=== PATIENT | female | born 1930 | race Caucasian/White ===

== ENCOUNTER 2018-08-18 18:05 | Emergency (ER) | payer MEDICARE ==
[~2018-08-18] VITALS: Ht 160 cm; Wt 81.6 kg
--- NOTE | 2018-08-18 18:22 | ED Fall/Injury ---
General Chief Complaint: Upper Extremity Stated Complaint: FALL - RT SHOULDER PAIN Source: patient, family, RN notes reviewed Exam Limitations: no limitations History of Present Illness Date Seen by Provider: Aug 18, 2018 Time Seen by Provider: 18:22 Initial Comments Patient brought in by family c/ c/o right shoulder and forearm pain p/ slipping in the shower and falling forward. Did manage to catch herself injuring her RUE in the process. Denies any other injuries. Occurred: just prior to arrival Severity: severe (9/10) Injuries/Pain Location: upper extremity (right shoulder and forearm) Context: slipped (in shower) Loss of Consciousness: no loss of consciousness Modifying Factors: Worse With Movement; Improves With Rest Associated Symptoms (Fall): Denies Symptoms (x/ as noted. ) Allergies and Home Medications Allergies Coded Allergies: clarithromycin (Verified Allergy, Unknown, 08/18/18) Uncoded Allergies: PENICILLIN (Allergy, Unknown, 08/18/18) Patient Home Medication List Home Medication List Reviewed: Yes Review of Systems Review of Systems Constitutional: see HPI Musculoskeletal: see HPI, other (right forearm and shoulder pain) All Other Systems Reviewed Negative Unless Noted: Yes (Negative excepted noted.) Physical Exam Vital Signs Vital Signs - First Documented 08/18/18 18:11 Temp 96.3 Pulse 76 Resp 22 B/P (MAP) 131/70 (90) Pulse Ox 92 O2 Delivery Room Air Capillary Refill : Height, Weight, BMI Height: '" Weight: lbs. oz. kg; BMI Method: General Appearance: WD/WN, mild distress Cardiovascular: regular rate, rhythm Respiratory: no respiratory distress Rectal: deferred Extremities: other (right forearm is tender to palpation, but s/ obvious deformity or other pathos; right shoulder is tender and obviously painful c/ attempted movement. No outward obvious deformity, or pathos. ) Neurologic/Psychiatric: no motor/sensory deficits, alert, oriented x 3 Skin: warm/dry Rebecca Coma Score Best Eye Response: (4) Open Spontaneously Best Verbal Response: (5) Oriented Best Motor Response: (6) Obeys Commands [place] Total: 15 Progress/Results/Core Measures Results/Orders My Orders Orders - ELVIN LOUIE DO Shoulder 3 View Right (08/18/18 18:22) Forearm 2 View Right (08/18/18 18:22) [facility] Supplies Order (08/18/18 19:17) Knee Immobilizer (08/18/18 19:17) Vital Signs/I&O 08/18/18 08/18/18 18:11 19:30 Temp 96.3 96.3 Pulse 76 76 Resp 22 22 B/P (MAP) 131/70 (90) 131/70 (90) Pulse Ox 92 92 O2 Delivery Room Air Room Air Diagnostic Imaging Diagonstic Imaging: Xray Plain Films/CT/US/NM/MRI: forearm (right, & right shoulder-see reports.) Departure Impression Primary Impression: Fall Additional Impressions: Contusion of right forearm, initial encounter Right shoulder injury Disposition: HOME, SELF-CARE Condition: Stable Departure-Patient Inst. Decision time for Depature: 19:21 Referrals: LEONARDO CORTES MD (PCP/Family) Primary Care Physician Patient Instructions: How to Use a Shoulder Sling, Rotator Cuff Injury (DC), Contusion (DC) Add. Discharge Instructions: All discharge instructions reviewed with patient and/or family. Voiced understanding. MAY NEED A MRI OF YOUR SHOULDER TO FURTHER EVALUATE FOR A POSSIBLE ROTATOR CUFF INJURY, ESPECIALLY IF IT DOESN'T IMPROVE OVER THE NEXT WEEK, OR SO. ELVIN LOUIE DO Aug 18, 2018 18:22
--- NOTE | 2018-08-18 19:05 | Diagnostic Imaging Report ---
INDICATION: Fall, pain COMPARISON: None available TECHNIQUE: 3 radiographs of the right forearm dated 08/13/2018. FINDINGS: No acute fracture or dislocation. No destructive osseous process. Degenerative changes are identified within the hand, particularly the first CMC joint. Tiny radiopaque densities are identified posterior and medial to the distal ulna. IMPRESSION: No acute osseous abnormality. Tiny radiopaque densities within the soft tissues dorsal and medial to the distal ulna. These could simply relate to vascular calcifications though tiny radiopaque foreign body is not totally excluded. Recommend direct visualization. Dictated by: Dictated on workstation # [id number]
--- NOTE | 2018-08-18 19:10 | Diagnostic Imaging Report ---
EXAMINATION: Right shoulder at 6:11 PM INDICATION: Fell, shoulder pain Three views were obtained. There are no prior studies available for comparison. There is no fracture, dislocation or acute bony abnormality evident. There is moderate degenerative disease of the glenohumeral joint and the acromioclavicular joint and there appears to be calcific tendinitis in the soft tissues adjacent to the greater tuberosity. The humeral head is also more superiorly positioned with respect to the glenoid than usually seen and I suspect that there has been an injury to the rotator cuff. The soft tissues are otherwise unremarkable. IMPRESSION: 1. There is no evidence for an acute bony abnormality. 2. The position of the humeral head does suggest a rotator cuff injury. If further imaging is desired, MRI would be recommended. Dictated by: Dictated on workstation # [id number]
[2018-08-18 19:30] VITALS: BP 131/70
== END 2018-08-18 19:31 | disposition home or self-care (01) ==
LOC: ER FS 18:07
DX: S40.021A Contusion of right upper arm, initial encounter (principal); S49.91XA Unspecified injury of right shoulder and upper arm, initial encounter; R40.2142 Coma scale, eyes open, spontaneous, at arrival to emergency department; R40.2252 Coma scale, best verbal response, oriented, at arrival to emergency department; R40.2362 Coma scale, best motor response, obeys commands, at arrival to emergency department; Z88.1 Allergy status to other antibiotic agents; Z88.0 Allergy status to penicillin; W01.0XXA Fall on same level from slipping, tripping and stumbling without subsequent striking against object, initial encounter
CPT/HCPCS: 73030; 73090

== ENCOUNTER 2020-05-21 10:06 | Emergency (ER) | payer MEDICARE ==
[~2020-05-21] VITALS: Ht 152.4 cm; Wt 76.0 kg
--- NOTE | 2020-05-21 10:13 | ED GI ---
General Stated Complaint: RIGHT UPPER QUADRANT PAIN History of Present Illness Date Seen by Provider: May 21, 2020 Time Seen by Provider: 10:13 Initial Comments 89-year-old [facility] reports that she is having right upper quadrant pain and that is what she complains of. They also report that she is a little bit more lethargic and confused than normal. She does have underlying dementia. No reports of fever or chills. Patient had a right upper quadrant ultrasound done yesterday as an outpatient basis by her primary care provider but unsure the results. No other HPI available. Allergies and Home Medications Allergies Coded Allergies: clarithromycin (Verified Allergy, Unknown, 08/18/18) Uncoded Allergies: PENICILLIN (Allergy, Unknown, 08/18/18) Patient Home Medication List Home Medication List Reviewed: Yes Review of Systems Review of Systems Constitutional: see HPI Respiratory: Denies Cough, Denies Shortness of Air Cardiovascular: Denies Chest Pain Gastrointestinal: Abdominal Pain; Denies Constipated, Denies Diarrhea Genitourinary: No Symptoms Reported Musculoskeletal: no symptoms reported Skin: no symptoms reported Psychiatric/Neurological: No Symptoms Reported Endocrine: No Symptoms Reported Hematologic/Lymphatic: No Symptoms Reported Past [id number] Hx Past Med/Social Hx: Reviewed Nursing Past Med/Soc Hx Physical Exam Vital Signs Vital Signs - First Documented 05/21/20 05/21/20 10:07 12:30 Temp 37.7 Pulse 112 Resp 15 B/P (MAP) 134/58 (83) Pulse Ox 88 O2 Delivery Room Air O2 Flow Rate 2.00 Capillary Refill : Height/Weight/BMI Height: '" Weight: lbs. oz. kg; BMI Method: General Appearance: no apparent distress, obese HEENT: PERRL/EOMI Neck: full range of motion, supple Respiratory: lungs clear, normal breath sounds Cardiovascular: normal peripheral pulses, tachycardia Gastrointestinal: soft, tenderness (Right sided upper greater than lower) Extremities: normal range of motion, non-tender Neurologic/Psychiatric: other (Patient mildly lethargic/fatigued acting. Patient acknowledges right upper quadrant pain but otherwise limited conversation. There is no focal deficit noted) Skin: normal color, warm/dry Focused Exam Lactate Level 05/21/20 10:25: Lactic Acid Level 2.30*H 05/21/20 12:23: Lactic Acid Level 1.43 Lactic Acid Level Laboratory Tests Test 05/21/20 10:25 05/21/20 12:23 Lactic Acid Level 2.30 MMOL/L (0.50-2.00) *H 1.43 MMOL/L (0.50-2.00) Progress/Results/Core Measures Results/Orders Lab Results Laboratory Tests Test 05/21/20 10:25 05/21/20 12:20 05/21/20 12:23 Range/Units White Blood Count 16.3 H 4.3-11.0 10^3/uL Red Blood Count 2.90 L 4.35-5.85 10^6/uL Hemoglobin 8.0 L 11.5-16.0 G/DL Hematocrit 26 L 35-52 % Mean Corpuscular Volume 90 80-99 FL Mean Corpuscular Hemoglobin 28 25-34 PG Mean Corpuscular Hemoglobin Concent 31 L 32-36 G/DL Red Cell Distribution Width 14.9 H 10.0-14.5 % Platelet Count 234 130-400 10^3/uL Mean Platelet Volume 9.6 7.4-10.4 FL Immature Granulocyte % (Auto) 1 % Neutrophils (%) (Auto) 85 H 42-75 % Lymphocytes (%) (Auto) 6 L 12-44 % Monocytes (%) (Auto) 9 0-12 % Eosinophils (%) (Auto) 0 0-10 % Basophils (%) (Auto) 0 0-10 % Neutrophils # (Auto) 13.8 H 1.8-7.8 X 10^3 Lymphocytes # (Auto) 0.9 L 1.0-4.0 X 10^3 Monocytes # (Auto) 1.4 H 0.0-1.0 X 10^3 Eosinophils # (Auto) 0.0 0.0-0.3 10^3/uL Basophils # (Auto) 0.0 0.0-0.1 10^3/uL Immature Granulocyte # (Auto) 0.1 0.0-0.1 10^3/uL Neutrophils % (Manual) 68 % Lymphocytes % (Manual) 8 % Monocytes % (Manual) 9 % Eosinophils % (Manual) 0 % Basophils % (Manual) 0 % Band Neutrophils 15 % Nucleated Red Blood Cells 1 Hypochromasia 2+ Sodium Level 139 135-145 MMOL/L Potassium Level 3.8 3.6-5.0 MMOL/L Chloride Level 102 98-107 MMOL/L Carbon Dioxide Level 25 21-32 MMOL/L Anion Gap 12 5-14 MMOL/L Blood Urea Nitrogen 18 7-18 MG/DL Creatinine 1.18 0.60-1.30 MG/DL Estimat Glomerular Filtration Rate 43 BUN/Creatinine Ratio 15 Glucose Level 170 H 70-105 MG/DL Lactic Acid Level 2.30 *H 1.43 0.50-2.00 MMOL/L Calcium Level 8.9 8.5-10.1 MG/DL Corrected Calcium 9.4 8.5-10.1 MG/DL Magnesium Level 1.6 1.6-2.4 MG/DL Total Bilirubin 0.4 0.1-1.0 MG/DL Aspartate Amino Transf (AST/SGOT) 16 5-34 U/L Alanine Aminotransferase (ALT/SGPT) 8 0-55 U/L Alkaline Phosphatase 52 40-136 U/L C-Reactive Protein 8.51 H <0.50 MG/DL Total Protein 6.4 6.4-8.2 GM/DL Albumin 3.4 3.2-4.5 GM/DL Amylase Level 37 25-125 U/L Lipase 13 8-78 U/L Urine Color YELLOW Urine Clarity CLOUDY H Urine pH 6.0 5-9 Urine Specific [place] 1.015 L 1.016-1.022 Urine Protein NEGATIVE NEGATIVE Urine Glucose (UA) NEGATIVE NEGATIVE Urine Ketones NEGATIVE NEGATIVE Urine Nitrite POSITIVE H NEGATIVE Urine Bilirubin NEGATIVE NEGATIVE Urine Urobilinogen 0.2 < = 1.0 MG/DL Urine Leukocyte Esterase 1+ H NEGATIVE Urine RBC (Auto) TRACE H NEGATIVE Urine RBC 0-2 /HPF Urine WBC 50-100 H /HPF Urine Squamous Epithelial Cells 0-2 /HPF Urine Crystals NONE /LPF Urine Bacteria LARGE H /HPF Urine Casts NONE /LPF Urine Mucus SMALL H /LPF Urine Culture Indicated YES My Orders Orders - COOPER,GAMALIEL L DO Amylase (05/21/20 10:13) Cbc With Automated Diff (05/21/20 10:13) Comprehensive Metabolic Panel (05/21/20 10:13) Lactic Acid Analyzer (05/21/20 10:13) Lipase (05/21/20 10:13) Magnesium (05/21/20 10:13) Crp Fs (05/21/20 10:13) Acute Abd Series (05/21/20 10:28) Ns Iv 1000 Ml (Sodium Chloride 0.9%) (05/21/20 10:28) Manual Differential (05/21/20 10:25) Cefepime Injection (Maxipime Injection) (05/21/20 11:15) Vancomycin Injection (Vancomycin Injecti (05/21/20 11:15) Blood Culture (05/21/20 11:20) Ct Abdomen/Pelvis W (05/21/20 11:22) Ua Culture If Indicated (05/21/20 11:38) Iohexol Injection (Omnipaque 350 Mg/Ml 1 (05/21/20 11:45) Received Contrast (Hold Metformin- Contr (05/21/20 11:45) Sodium Chloride Flush (Catheter Flush Sy (05/21/20 11:45) Ns (Ivpb) (Sodium Chloride 0.9% Ivpb Bag (05/21/20 11:45) Acetaminophen Tablet (Tylenol Tablet) (05/21/20 12:31) Urine Culture (05/21/20 12:20) Medications Given in ED Current Medications Medications Dose Ordered Sig/Lucian Route Start Time Stop Time Status Last Admin Dose Admin Cefepime HCl 1000 mg/Sterile Water 10 ml @ 200 mls/hr ONCE ONCE IV 05/21/20 11:15 05/21/20 11:17 DC 05/21/20 12:35 200 MLS/HR Iohexol 100 ml ONCE ONCE IV 05/21/20 11:45 05/21/20 11:47 DC 05/21/20 12:11 100 ML Sodium Chloride 10 ml NEEDED PRN IV 05/21/20 11:45 05/21/20 12:11 10 ML Sodium Chloride 100 ml ONCE ONCE IV 05/21/20 11:45 05/21/20 11:47 DC 05/21/20 12:11 80 ML Vancomycin HCl 1000 mg/Sodium Chloride 250 ml @ 250 mls/hr ONCE ONCE IV 05/21/20 11:15 05/21/20 12:14 DC 05/21/20 12:40 250 MLS/HR Vital Signs/I&O 05/21/20 05/21/20 05/21/20 10:07 12:30 12:41 Temp 37.7 38.6 38.6 Pulse 112 107 Resp 15 16 B/P (MAP) 134/58 (83) 138/66 Pulse Ox 88 100 O2 Delivery Room Air Nasal Cannula O2 Flow Rate 2.00 Progress Progress Note : Time: 14:12 Progress Note Patient with early mild sepsis likely from a urinary tract infection. There was finding of a colonic mass on CT in the area that she is tender. Patient does have a slightly low hemoglobin but unsure of her baseline. This is likely due to the colonic mass. Patient's son is a physician in [place] and they would like her transferred to [facility]. Called and discussed with Dr. Jeffries who graciously accepted patient. Patient was given IV fluids and antibiotics while here in the ER. Diagnostic Imaging Diagonstic Imaging: CT Plain Films/CT/US/NM/MRI: abdomen Comments [facility] [place], [place] NAME: CHARLOTTE ROJAS [facility] REC#: [id number] PT STATUS: REG ER : 1930 PHYSICIAN: GAMALIEL COOPER DO ADMIT DATE: 05/21/20/ER FS Draft Date of Exam:05/21/20 CT ABDOMEN/PELVIS W PROCEDURE: CT abdomen and pelvis with contrast. TECHNIQUE: Multiple contiguous axial images were obtained through the abdomen and pelvis after administration of intravenous contrast. Auto Exposure Controls were utilized during the CT exam to meet ALARA standards for radiation dose reduction. All CT scans use one or more of the following dose optimizing techniques: automated exposure control, MA and/or KvP adjustment based on patient size and exam type or iterative reconstruction. INDICATION: Right upper quadrant abdominal pain. COMPARISON: Correlation is made with the abdominal series from earlier this same day. FINDINGS: The lung bases are clear. The liver contains a 10 mm low-attenuation lesion in the right lobe, too small to accurately characterize. There is no biliary ductal dilatation. The gallbladder is surgically absent. The pancreas and spleen are unremarkable. No adrenal mass is detected. The kidneys are unremarkable. The aorta is nonaneurysmal. Abnormal soft tissue in the right abdomen involving the right colon is noted. There appears to be some wall thickening. The colon is inseparable from the adjacent abdominal wall and features are concerning for a right colonic mass with possible involvement of the adjacent abdominal wall. There is a fluid-filled small bowel loop in the central abdomen, likely accounting for the small bowel loop noted on the abdominal radiograph. This is nonspecific. No free fluid or fluid collection is seen. There is no free air. There is artifact in the pelvis from right hip prosthesis. IMPRESSION: Findings are suggestive of a right colonic mass with possible involvement of the right abdominal wall. Colonoscopy would be recommended for further evaluation. Reviewed: Reviewed by Me, Reviewed/Discussed Departure Impression Primary Impression: Sepsis Qualified Codes: A41.9 - Sepsis, unspecified organism Additional Impressions: Urinary tract infection Qualified Codes: N30.01 - Acute cystitis with hematuria Colonic mass Disposition: XF SHT-TRM HOSP Condition: Stable Transfer Transfer Reason: Patient preference Time Spoke to Accepting Phy: 14:00 Transfer Progress Notes Patient accepted by Dr. Jeffries [facility]. Transfer Facility: [facility] Method of Transfer: EMS GAMALIEL COOPER DO May 21, 2020 10:13
[2020-05-21] MEDS ORDERED: NS IV 1000 ML 1,000 ML IV STA (10:28)
[2020-05-21 10:53] LABS: MEAN CORPUSCULAR HEMOGLOBIN 28 PG (25-34); WHITE BLOOD COUNT 16.3 10^3/uL (4.3-11.0)
[2020-05-21 10:54] LABS: BASOPHILS % (AUTO) 0 % (0-10); EOSINOPHILS % (AUTO) 0 % (0-10); HEMATOCRIT 26 % (35-52); LYMPHOCYTES # (AUTO) 0.9 X 10^3 (1.0-4.0); LYMPHOCYTES % (AUTO) 6 % (12-44); MEAN CORPUSCULAR HGB CONC 31 G/DL (32-36); MEAN CORPUSCULAR VOLUME 90 FL (80-99); MEAN PLATELET VOLUME 9.6 FL (7.4-10.4); MONOCYTES # (AUTO) 1.4 X 10^3 (0.0-1.0); MONOCYTES % (AUTO) 9 % (0-12); NEUTROPHILS # (AUTO) 13.8 X 10^3 (1.8-7.8); NEUTROPHILS % (AUTO) 85 % (42-75); PLATELET COUNT 234 10^3/uL (130-400)
[2020-05-21 10:59] LABS: ALBUMIN 3.4 GM/DL (3.2-4.5); BILIRUBIN,TOTAL 0.4 MG/DL (0.1-1.0); CALCIUM 8.9 MG/DL (8.5-10.1); CREATININE SERUM 1.18 MG/DL (0.60-1.30); MAGNESIUM 1.6 MG/DL (1.6-2.4); POTASSIUM 3.8 MMOL/L (3.6-5.0); TOTAL PROTEIN 6.4 GM/DL (6.4-8.2)
[2020-05-21 11:05] LABS: BAND NEUTROPHILS 15 %; BASOPHILS % (MANUAL) 0 %; EOSINOPHILS % (MANUAL) 0 %; HYPOCHROMASIA 2+; LYMPHOCYTES % (MANUAL) 8 %; MONOCYTES % (MANUAL) 9 %; NEUTROPHILS % (MANUAL) 68 %; NUCLEATED RED BLOOD CELLS 1
[2020-05-21] MEDS ORDERED: VANCOMYCIN INJECTION 1,000 MG in NS (IVPB) 250 ML IV ONE (11:15)
[2020-05-21] MEDS ORDERED: CEFEPIME INJECTION 1,000 MG in WATER (STERILE) FOR INJECTION 10 ML IV ONE (11:15)
--- NOTE | 2020-05-21 11:41 | Diagnostic Imaging Report ---
INDICATION: Abdominal pain. Time of exam 10:35 a.m. Upright supine views of the abdomen as well as a view of the chest was obtained. The lungs are clear. No effusion or pneumothorax is seen. No free air is identified. Surgical changes in the right abdomen are noted. There are mildly prominent gas-filled small bowel loops in the left abdomen, nonspecific. The colon contains moderate stool. No pathologic calcifications are seen. Postoperative changes in the right hip are noted. IMPRESSION: Nonspecific bowel gas pattern with focal mildly prominent air-filled small bowel loops in left abdomen. If clinically indicated, CT may be useful for further evaluation. No other significant abnormality is detected. Dictated by: Dictated on workstation # [id number]
[2020-05-21] MEDS ORDERED: NS 100 ML (IVPB) BAG IV ONE (11:45)
[2020-05-21] MEDS ORDERED: IOHEXOL 350 MG/ML 100 ML (OMNIPAQUE 350) VIAL IV ONE (11:45)
[2020-05-21] MEDS ORDERED: CATHETER FLUSH 10 ML SYR IV PRN (11:45)
[2020-05-21] MEDS ORDERED: HOLD METFORMIN - RECEIVED CONTRAST 20 ML VIAL IV SCH (11:45)
--- NOTE | 2020-05-21 12:26 | Diagnostic Imaging Report ---
PROCEDURE: CT abdomen and pelvis with contrast. TECHNIQUE: Multiple contiguous axial images were obtained through the abdomen and pelvis after administration of intravenous contrast. Auto Exposure Controls were utilized during the CT exam to meet ALARA standards for radiation dose reduction. All CT scans use one or more of the following dose optimizing techniques: automated exposure control, MA and/or KvP adjustment based on patient size and exam type or iterative reconstruction. INDICATION: Right upper quadrant abdominal pain. COMPARISON: Correlation is made with the abdominal series from earlier this same day. FINDINGS: The lung bases are clear. The liver contains a 10 mm low-attenuation lesion in the right lobe, too small to accurately characterize. There is no biliary ductal dilatation. The gallbladder is surgically absent. The pancreas and spleen are unremarkable. No adrenal mass is detected. The kidneys are unremarkable. The aorta is nonaneurysmal. Abnormal soft tissue in the right abdomen involving the right colon is noted. There appears to be some wall thickening. The colon is inseparable from the adjacent abdominal wall and features are concerning for a right colonic mass with possible involvement of the adjacent abdominal wall. There is a fluid-filled small bowel loop in the central abdomen, likely accounting for the small bowel loop noted on the abdominal radiograph. This is nonspecific. No free fluid or fluid collection is seen. There is no free air. There is artifact in the pelvis from right hip prosthesis. IMPRESSION: Findings are suggestive of a right colonic mass with possible involvement of the right abdominal wall. Colonoscopy would be recommended for further evaluation. Dictated by: Dictated on workstation # [id number]
[2020-05-21] MEDS ORDERED: ACETAMINOPHEN 500 MG TAB (TYLENOL) PO STA (12:31)
[2020-05-21 12:49] LABS: BILIRUBIN,URINE NEGATIVE (NEGATIVE); COLOR,URINE YELLOW; GLUCOSE, URINE (UA) NEGATIVE (NEGATIVE); KETONES,URINE NEGATIVE (NEGATIVE); NITRITE,URINE POSITIVE (NEGATIVE); PROTEIN,URINE NEGATIVE (NEGATIVE)
[2020-05-21 12:50] LABS: BACTERIA,URINE LARGE /HPF; LEUKOCYTE ESTERASE ,URINE 1+ (NEGATIVE); RBC,URINE 0-2 /HPF; SQUAMOUS EPITHELIAL CELL,UR 0-2 /HPF; WBC,URINE 50-100 /HPF
[2020-05-21 12:51] LABS: CLARITY,URINE CLOUDY
[2020-05-21 16:10] VITALS: BP 118/55
== END 2020-05-21 16:10 | disposition short-term general hospital (02) ==
LOC: EDUNIT# 10:06 → ER FS 10:12
DX: A41.9 Sepsis, unspecified organism (principal); N39.0 Urinary tract infection, site not specified; K63.9 Disease of intestine, unspecified; I10 Essential (primary) hypertension; E66.9 Obesity, unspecified; Z88.0 Allergy status to penicillin; Z88.1 Allergy status to other antibiotic agents
CPT/HCPCS: 36415; 51701; 74022; 74177; 80053; 81000; 82150; 83605; 83690; 83735; 85007; 85025; 85027; 86141; 87040; 87077; 87088; 87186; 96374; 96375

== ENCOUNTER 2020-05-28 14:20 | Inpatient (IN) | payer MEDICARE ==
[~2020-05-28] VITALS: Ht 157.5 cm; Wt 85.2 kg
[2020-05-28 14:20] VITALS: BP 192/97
[~2020-05-28 14:20] MED LIST: ACETAMINOPHEN 500 MG TAB (TYLENOL) PO PRN; ALPRAZolam 0.25 MG (XANAX) TAB PO PRN; BISACODYL 10 MG SUPP (DULCOLAX) PR PRN; CALCIUM CARBONATE 500 MG (TUMS) TAB.CHEW PO PRN; DOCUSATE SODIUM 100 MG (COLACE) CAP PO PRN; FLEET ENEMA ADULT 1 EA BTL PR PRN; LACTULOSE SYRUP 10GM/15ML (ENULOSE) 30ML UDC PO PRN; LOPERAMIDE 2 MG (IMODIUM) TABLET PO PRN; ONDANSETRON 4 MG (ZOFRAN) ORAL DISSOLVE TAB PO PRN; diphenhydrAMINE 25 MG TAB (BENADRYL) PO PRN; guaiFENesin/CODEINE (ROBITUSSIN AC) 10ML UDC PO PRN
[2020-05-28] MEDS ORDERED: TRAM50TA3 PO (14:43)
[2020-05-28] MEDS ORDERED: LATA2.5D19 OU (14:43)
[2020-05-28] MEDS ORDERED: ACET-93 PO (14:43)
[2020-05-28] MEDS ORDERED: SIMV10TA26 PO (14:43)
[2020-05-28] MEDS ORDERED: OMEG10006 PO (14:43)
[2020-05-28] MEDS ORDERED: GLUC-144 PO (14:43)
[2020-05-28] MEDS ORDERED: DOCU100T28 PO (14:43)
[2020-05-28] MEDS ORDERED: DULO60CA59 PO (14:43)
[2020-05-28] MEDS ORDERED: TOLT4CAP13 PO (14:43)
[2020-05-28] MEDS ORDERED: BETA1TAB13 PO ×2 (14:43)
[2020-05-28] MEDS ORDERED: CAPS60CR4 TOP (14:43)
[2020-05-28] MEDS ORDERED: METO-333 PO (14:43)
[2020-05-28] MEDS ORDERED: CALC1TAB95 PO (14:43)
[2020-05-28] MEDS ORDERED: FERR325T18 PO (14:43)
[2020-05-28] MEDS ORDERED: OMEP20CA18 PO (14:43)
[2020-05-28] MEDS ORDERED: GARL10002 PO (14:43)
[2020-05-28] MEDS ORDERED: MENT222L TP (14:43)
[2020-05-28] MEDS ORDERED: PREG75CA75 PO (14:43)
[2020-05-28] MEDS ORDERED: CYAN-41 PO (14:43)
[2020-05-28] MEDS ORDERED: PANT20TA18 PO (15:10)
[2020-05-28] MEDS ORDERED: OMEG1CAP58 PO (15:10)
[2020-05-28] MEDS ORDERED: ACETAMINOPHEN 325 MG TABLET PO PRN (15:45)
[2020-05-28] MEDS: DOCUSATE SODIUM 100 MG (COLACE) CAP PO SCH ×2 (15:47→20:07)
[2020-05-28] MEDS: polyethylene glycoL POWDER 17 GM (MIRALAX) PACK PO SCH ×2 (15:49→20:09)
--- NOTE | 2020-05-28 15:59 | Occupational Therapy Eval ---
OT Evaluation-General/PLF Medical Diagnosis Admission Date May 28, 2020 at 14:20 Medical Diagnosis: sepsis/ R hemioclectomy Onset Date: May 21, 2020 Therapy Diagnosis Therapy Diagnosis: Decreased ADL status Height/Weight Height (Feet): 5 Height (Inches): 3.00 Weight (Pounds): 180 Precautions Precautions/Isolations: Fall Prevention, Standard Precautions Weight Bear Status Weight Bearing Restriction: Full Weight Bearing Referral Physician: Mariely Referral Reason: Activity Tolerance, Self Care, Evaluation/Treatment, Strengthening/ROM Medical History Additional Medical History anemia, HTN, HLD< OA, macular degeneration, neuropathy, squamous cell carcinoma, hip replacement. Current History Pt admits to [facility] from OSH for management of sepsis 2* to UTI. US 05/19 found cholec ystectomy with extra hepatic common bile duct and R colonic mass. 05/23 R hemicolectomy with resection of abdominal wall. Reviewed History: Yes Social History Home: Assisted Living Current Living Status: Spouse Entry Into Home: Level Entry ADL-Prior Level of Function SCALE: Activities may be completed with or without assistive devices. 1-Ondzqtqzcc-iisfjnt completes the activity by him/herself with no assistance from a helper. 5-Set-up or Clean-up Assistance-helper sets up or cleans up; patient completes activity. [place] assists only prior to or following the activity. 4-Supervision or Touching Assistance-helper provides verbal cues and/or touching/steadying and/or contact guard assistance as patient completes activity. Assistance may be provided throughout the activity or intermittently. 3-Partial/Moderate Assistance-helper does LESS THAN HALF the effort. [place] li fts, holds or supports trunk or limbs, but provides less than half the effort. 2-Substantial/Maximal Assistance-helper does MORE THAN HALF the effort. [place] lifts or holds trunk or limbs and provides more than half the effort. 2-Yeexbmsge-pxgamj does ALL the effort. Patient does none of the effort to complete the activity. Or, the assistance of 2 or more helpers is required for the patient to complete the activity. If activity was not attempted, code reason: 7-Patient Refused. 9-Not Applicable-not attempted and the patient did not perform the activity before the current illness, exacerbation or injury. 10-Not Attempted due to Environmental Limitations-(lack of equipment, weather restraints, etc.). 88-Not Attempted due to Medical Conditions or Safety Concerns. ADL PLOF Comments IND with ADLs within the apartment, use of SPC. [facility] assists with management of f ood/ laundry, though pt cooks breakfast and completes laundry if needed. Self Care: Independent Functional Cognition: Independent DME/Equipment: Bath Chair, Grab Bars, Shower, Tall Toilet DME/Equipment Comments owns walker as well Occupation: retired Drive Self: No Leisure Interests: activities at [facility], cooking breakfast, naps OT Current Status Subjective Pt brought by private vehicle to [facility]. Pt denies pain, agrees to therapy. Is introduced to facility and ARU expectations/ OT vs PT role. Daughter and accompany pt. PT eval: [id number] OT eval: [id number] OT/ PT co-treat: [id number] (80) with OT addressing UE movements, ADL function, problem solving and PT addressing LE movement, balance/ gait. Mental Status/Objective Patient Orientation: Person, Place, Situation, Normal For Age Current Glasses/Contacts: Yes Hearing Aids: Yes Hand Dominance: Right Upper Extremity ROM WFL LUE R shoulder flexion decreased (RTC tear- not repaired) Upper Extremity Coordination WFL BUE Upper Extremity Sensation WFL BUE Upper Extremity Strength WFL LUE, R not tested due to limitations in shoulder. Utilizes LUE for reaching. Bilateral spanish teacher functional ADL-Treatment Eating (QC): 5 (s/u at times per pt. Though use of L hand for cutting/ scooping/ feeding) Oral Hygiene (QC): 4 (SBA per clinical judgment.) Shower/Bathe Self (QC): 7 (denies this date.) Upper Body Dressing (QC): 3 (mod A per clinical judgment, states assists with doffing shirt. Pt requires min A for donning/ doffing jacket.) Lower Body Dressing (QC): 3 (mod A per clinical judgment for threading BLE/ balance.) On/Off Footwear (QC): 6 (Did not complete socks prior. Able to don shoes (slip ons) with IND.) Toileting Hygiene (QC): 3 (per pt, pt requires min A for thoroughness post BM. Pt urinates 2x during session with SBA for ivelisse care.) Other Treatments Pt completes ambulation/ car transfer with CGA. No pain noted. Brought by w/c to 2nd floor. Pt brought to room, urinates with CGA transfer to low/ standard to ilet and SBA ivelisse care. Pt is pushed to gym, OT/ PT evaluation. Pt completes ambulation/ step and uneven surface with CGA with walker. Pt utilized cane prior. Pt completes standing reaching/ balance tasks for 30 minutes, rest breaks as needed. Pt completes throwing tasks with CGA and use of R/ L UE. Pt educated on ARU process and ability to continue working towards safe d/c and higher fx endurance. Pt agrees. Pt picks items from floor with CGA. Has macular degeneration, states "poor eye sight." Ambulates through mcadams with CGA (see PT for distance), pt completes urination an additional time with SBA-CGA. Pt completes bed mob with SBA. Pt left in recliner with all needs met, call light in reach, daughter and present. No questions from family at this time. Pt demonstrates good safety, good motivation, fair endurance for I/ADLs within home. Education OT Patient Education: Correct positioning, Energy conservation, Exercise program, Purpose of tx/functional activities, Rehab process, Safety issues, Transfer techniques Teaching Recipient: Patient Teaching Methods: Demonstration, Discussion Response to Teaching: Verbalize Understanding, Return Demonstration, Re inforcement Needed OT Short Term Goals Short Term Goals Upper body dressin Lower body dressin OT Lighting Director Goals Halfway Goals Time Frame: Jun 11, 2020 Eating (QC): 6 Oral Hygiene (QC): 6 Toileting Hygiene (QC): 6 Shower/Bathe Self (QC): 6 Upper Body Dressing (QC): 3 Lower Body Dressing (QC): 6 On/Off Footwear (QC): 6 Additional Goals: 1-Demonstrate ADL Tasks, 2-Verbalize Understanding, 3- ImproveStrength/Matt 1=Demonstrate adherence to instructed precautions during ADL tasks. 2=Patient will verbalize/demonstrate understanding of assistive devices/modifications for ADL. 3=Patient will improve strength/tolerance for activity to enable patient to perform ADL's. OT Education/Plan Problem List/Assessment Assessment: Decreased Activ Tolerance, Decreased UE Strength, Impaired I ADL's, Impaired Self-Care Skills, Restricted Funct UE ROM Discharge Recommendations Plan/Recommendations: Continue POC Therapy Discharge Recommendati: Assisted Living Treatment Plan/Plan of Care Treatment,Training & Education: Yes Patient would benefit from OT for education, treatment and training to promote independence in ADL's, mobility, safety and/or upper extremity function for ADL's. Plan of Care: ADL Retraining, Caregiver Training, Concurrent Therapy, Functional Mobility, Group Exercise/Act as Ind, UE Funct Exercise/Act Treatment Duration: Jun 11, 2020 Frequency: At least 5 of 7 days/Wk (IRF) Estimated Hrs Per Day: 1.5 hours per day Agreement: Yes Rehab Potential: Good Time/GCodes Start Time: 14:20 Stop Time: 16:00 Total Time Billed (hr/min): 90 Billed Treatment Time PT eval: [id number] OT eval: [id number] (10) OT/ PT co-treat: [id number] (80) with OT addressing UE movements, ADL function, problem solving and PT addressing LE movement, balance/ gait. 1, EVM, ADL 2, EX 3= 90 DAVY MELO OTR May 28, 2020 15:59
[2020-05-28 16:00] VITALS: BP 197/92
--- NOTE | 2020-05-28 16:01 | Physical Therapy Evaluation ---
PT Evaluation-General Medical Diagnosis Admission Date May 28, 2020 at 14:20 Medical Diagnosis: sepsis/ R hemioclectomy Onset Date: May 21, 2020 Therapy Diagnosis Therapy Diagnosis: impaired mobility, strength, endurance Height/Weight Height (Feet): 5 Height (Inches): 3.00 Weight (Pounds): 180 Precautions Precautions/Isolations: Fall Prevention, Standard Precautions Referral Physician: Chacha Schuster DO Reason for Referral: Evaluation/Treatment Medical History Additional Medical History anemia, HTN, HLD< OA, macular degeneration, neuropathy, squamous cell carcinoma, hip replacement. Social History Home: Assisted Living Current Living Status: Spouse Entry Into Home: Elevator Pt does not have to navigate stairs to get into or inside the home. Prior Prior Level of Function SCALE: Activities may be completed with or without assistive devices. 8-Txfrggpckp-hdhomrq completes the activity by him/herself with no assistance from a helper. 5-Set-up or Clean-up Assistance-helper sets up or cleans up; patient completes activity. [place] assists only prior to or following the activity. 4-Supervision or Touching Assistance-helper provides verbal cues and/or touching/steadying and/or contact guard assistance as patient completes activity. Assistance may be provided throughout the activity or intermittently. 3-Partial/Moderate Assistance-helper does LESS THAN HALF the effort. [place] lifts, holds or supports trunk or limbs, but provides less than half the effort. 2-Substantial/Maximal Assistance-helper does MORE THAN HALF the effort. [place] lifts or holds trunk or limbs and provides more than half the effort. 0-Jzdhsqmnn-ydgyje does ALL the effort. Patient does none of the effort to complete the activity. Or, the assistance of 2 or more helpers is required for the patient to complete the activity. If activity was not attempted, code reason: 7-Patient Refused. 9-Not Applicable-not attempted and the patient did not perform the activity before the current illness, exacerbation or injury. 10-Not Attempted due to Environmental Limitations-(lack of equipment, weather restraints, etc.). 88-Not Attempted due to Medical Conditions or Safety Concerns. Bed Mobility: 6 Transfers (B,C,W/C): 6 Gait: 6 Stairs: 6 Indoor Mobility (Ambulation): Independent Prior Devices Use: Walker Prior Device Use: Has walker and cane at home, she did utilize these occassionally. PT Evaluation-Current Subjective Pt arrived to rehab in w/c, and agreed to participate in PT. Pt noted soreness in her abdominal area but did not rate sensation as painful. Pt/Family Goals Return to functional independence Objective Patient Orientation: Person, Place, Time, Normal For Age ROM/Strength ROM Lower Extremities WNL Strength Lower Extremities Left LE (hip flexion 4+/5, knee extension 4/5, knee flexion 4/5, dorsiflexion 4/5), Right LE (hip flexion 4+/5, knee extension 4/5, knee flexion 4/5, dorsiflexion 4/5) Neuromuscular (Tone, Coordination, Reflexes) WNL Sensory Hearing: Hearing Aid/Aides Hand Dominance: Right Sensation Right Lower Extremit: Intact Sensation Left Lower Extremity: Intact Transfers Roll Left & Right (QC): 6 Sit to Lying (QC): 6 Lying to Sitting/Side of Bed(Q: 6 Sit to Stand (QC): 4 Chair/Qop-io-Aoipj Xfer(QC): 4 Toilet Transfer (QC): 4 Car Transfer (QC): 4 Gait Does the Patient Walk?: Yes Mode of Locomotion: Walk Anticipated Mode of Locomotion: Walk Walk 10 feet (QC): 4 Walk 50 ft with 2 Turns(QC): 4 Walk 150 ft (QC): 88 Walking 10ft/uneven surface-QC: 4 Distance: 120' Gait Assistive Device: FWW Comments/Gait Description Patient maintains slow pace with ambulation, but is steady. Required 1 rest break during walk at end of treatment session. Wheelchair Training Does the Pt Use a Wheelchair?: No Wheel 50 ft with 2 turns (QC): 9 Wheel 150 ft (QC): 9 Stairs #of Steps: 1 1 Step (curb) (QC): 4 4 Steps (QC): 88 12 Steps (QC): 88 Walking Assistive Device: Walker Pt had slight falter during step ascent but was able to maintain balance without assistance. Balance Sitting Static: Normal Sitting Dynamic: Normal Standing Static: Good Standing Dynamic: Good Picking up an Object (QC): 4 Special Test Comments Pt was able to oyster picker 3 items from the floor, with no pain complaints, and with a slow pace. CGA required due to forward weight shift. Treatment Co-treated with OT: maintaining balance with reaching outside VAL. Assessment/Needs Pt demonstrated good endurance with treatment, but began to fatigue as the treatment session continued. Rehab Potential: Fair Equipment Needs FWW PT Short Term Goals Short Term Goals Time Frame: Jun 04, 2020 Roll Left & Right: 6 Sit to lyin Lying to sitting on side of be: 6 Sit to stand: 4 Chair/aul-aw-ctdru transfer: 4 Walk 10 feet: 4 Walk 50 feet with two turns: 4 Walk 150 feet: 4 PT Personalized Living Manager Goals Personalized Living Manager Goals PT Mcc Goals Time Frame: Jun 18, 2020 Roll Left & Right (QC): 6 Sit to Lying (QC): 6 Lying-Sitting on Side/Bed(QC): 6 Sit to Stand (QC): 5 Chair/Utk-qh-Wesvk Xfer(QC): 5 Toilet Transfer (QC): 5 Car Transfer (QC): 5 Does the Patient Walk: Yes Walk 10 feet (QC): 5 Walk 50ft with 2 Turns (QC): 5 Walk 150 ft (QC): 5 Walking 10ft on Uneven Surface: 5 1 Step (curb) (QC): 4 4 Steps (QC): 4 12 Steps (QC): 88 Picking up an Object (QC): 4 Wheel 50 feet with 2 turns (QC: 9 Wheel 150 feet: 9 PT Plan Problem List Problem List: Activity Tolerance, Functional Strength, Safety, Balance, Gait, Transfer, ROM Treatment/Plan Treatment Plan: Continue Plan of Care Treatment Plan: Education, Functional Activity Matt, Functional Strength, Group Therapy, Gait, Safety, Therapeutic Exercise, Transfers Treatment Duration: Jun 18, 2020 Frequency: At least 5 of 7 days/Wk (IRF) Estimated Hrs Per Day: 1.5 hours per day Patient and/or Family Agrees t: Yes Safety Risks/Education Patient Education: Gait Training, Transfer Techniques, Steps, Correct Positioning, Safety Issues Teaching Recipient: Patient Teaching Methods: Demonstration, Discussion Response to Teaching: Reinforcement Needed Discharge Recommendations Plan Patient will perform bed mobility and transfer training, balance and endurance training, functional strengthening, stair training, gait training, and education, to improve functional mobility and independence at home. Therapy Discharge Recommendati: Home & Family Time/GCodes Time In: 1420 Time Out: 1600 Total Billed Treatment Time: 90 Total Billed Treatment 1 visit EVM 10' EX 45' FA 35' PT eval from [id number], OT eval from [id number], co-treat from [id number] GARY CHE PT May 28, 2020 16:01
[2020-05-28] MEDS: SENNA W/DOCUSATE (SENOKOT S) TABLET PO SCH ×2 (16:05→20:07)
[2020-05-28 16:20] VITALS: BP 189/86
[2020-05-28] MEDS ORDERED: OMEPRAZOLE 20 MG (PriLOSEC) CAP NON-FORMULARY PO PRN (16:45)
[2020-05-28] MEDS ORDERED: RX-TRAMADOL 50 MG (ULTRAM) TAB PPK#4 PO PRN (16:45)
[2020-05-28] MEDS ORDERED: amLODIPine 5 MG (NORVASC) TAB PO NR (16:45)
[2020-05-28] MEDS ORDERED: PANTOPRAZOLE 20 MG TABLET (PROTONIX) PO PRN (17:00)
[2020-05-28] MEDS: OMEGA 3 (FISH OIL) 1000 MG CAP PO SCH (17:07)
[2020-05-28] MEDS: CALCIUM CARB + VIT D 600 MG (CALCARB + D) TAB PO SCH (17:07)
[2020-05-28 18:00] VITALS: BP 186/81
[2020-05-28] MEDS: PREGABALIN 75 MG (LYRICA) CAP PO SCH (20:07)
[2020-05-28] MEDS: SIMvastatin 10 MG (ZOCOR) TAB PO SCH (20:07)
[2020-05-28] MEDS: LATANOPROST 0.005% (XALATAN) OPHTH SOLN 2.5 ML OU SCH (20:09)
[2020-05-28 20:11] VITALS: BP 190/79
[2020-05-28] MEDS: meTOprolol TARTRATE 25 MG (LOPRESSOR) TABLET PO SCH (20:11)
[2020-05-28] MEDS: ACETAMINOPHEN 500 MG TAB (TYLENOL) PO SCH (20:11)
--- NOTE | 2020-05-28 20:26 | PM&R Post Admission Assessment ---
PM&R HP Date of Visit: May 28, 2020 Time of Visit: 18:00 History of Present Illness CC: Critical illness myopathy HPI: This is an 89yoWF clinic patient of Dr Carnes and PCP at [facility] who presents to the IRF in need of recovery following a complex hospital course at [facility] due to sepsis and UTI with w/u revealing colon cancer mass required resection due to obstruction and abscess. 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 Patient is currently without pain but increase BP is noted and will require additional BP meds. I have reviewed all of [facility] records and pasted several documents below. Checked meds and labs. CT scan IMPRESSION: 1. Large, ill-defined, locally invasive, perforated mass arising from the hepatic flexure of the colon with an associated gas and feces containing paracolic abscess. This likely represents a perforated primary colon cancer. 2. No hepatic metastatic disease or abdominopelvic lymphadenopathy. [facility] Op report: Ms. Shukla is a very pleasant 89-year-old who had been experiencing some right- sided abdominal pain for quite some time. She acutely developed more abdominal pain with the development of a palpable mass/firmness as well as a bowel obs truction. A CT scan shows what seems to be a cecal cancer directly invading into the right inside abdominal wall. Despite her age, Ms. Shukla is active, with a relatively good functional status and is relatively medically fit. She presents for an exploratory laparotomy with resection of the abdominal wall mass en bloc of the right colon. FINDINGS: Right inside abdominal wall mass intimately attached to the cecum, which likely represents a colon cancer invading into the right inside abdominal wall. There was no evidence of peritoneal carcinomatosis and no palpable liver lesions noted. I felt that I achieved grossly negative margins. The abdominal defect was closed with interrupted sutures. Otherwise uneventful operation. DESCRIPTION AND FINDINGS OF OPERATIVE PROCEDURE: The patient was brought into the operating room and placed in a supine position at which time general endotracheal anesthesia was established by the anesthesiologist without any difficulty. The lower chest, abdomen, and pelvis were prepped and draped in the usual sterile manner. A midline incision was made just below the xiphoid to several centimeters below the umbilicus. The incision was taken down through skin and subcutaneous tissue. The fascia was divided and the peritoneal cavity was carefully entered. A general exploration of the abdomen was performed. There was no evidence of peritoneal carcinomatosis. There were no liver lesions noted. No other palpable masses of the small and large intestines. There was a palpable hard mass along the right inside abdominal wall several centimeters below the costal margin along approximately the mid-clavicular line. It was intimately attached to the cecum and likely represented a cecal cancer that had invaded into the right inside abdominal wall. There were attachments between the omentum and the mass as well. That part of the abdominal wall and the mass were kept en bloc with the right colon specimen. Using cautery and attempting to achieve negative gross margins the inside abdominal wall and tumor was dissected free of the remaining right inside abdominal wall by dividing peritoneal membrane, rectus muscle, anterior and posterior rectus fascia, and subcutaneous tissue. The tumor and its abdominal wall margins measured 13 x 10 cm in diameter. Superficial to the abdominal wall resection, there was normal- appearing fat and skin that did not appear to be involved with tumor. While leaving the abdominal wall resection en bloc with cecum, the lateral attachments of the terminal ileum and right colon were divided and the mesentery was lifted off the retroperitoneal structures including the duodenal sweep, which was identified and dissected away from the tumor. The hepatic flexure attachments were divided using cautery. A portion of the omentum was kept with the specimen en bloc by dividing with the EnSeal device. The proximal transverse colon and its mesentery was freed from its omental and right epiploic attachments until the terminal ileum, right colon, and proximal transverse colon were adequately mobilized for a tension-free anastomosis. The ileocolic pedicle was identified, double clamped, divided, and ligated with a 2-0 silk stick tie. The right branch of the middle colic artery was identified and divided with the EnSeal. The proximal transverse colon was divided with a size 75 blue load of the ERICH stapler. Approximately 10 proximal to the cecum, the terminal ileum was divided with a size 75 blue load of the ERICH stapler. The remaining mesentery of the specimen was divided with the EnSeal. A [id number] ileocolic anastomosis was created with a size 75 blue load of the ERICH stapler. The remaining anterior common enterotomy was closed with a size 60 blue load of the TX stapler. The entire staple line was reinforced with interrupted 3-0 silk imbricating seromuscular sutures in a Lembert manner. There was no tension or ischemia at the anastomosis. The overall integrity of the anastomosis was excellent. The right abdominal fascial defect, created by the abdominal wall resection, was closed with interrupted number 1 Vicryl sutures. The abdomen was irrigated with 2 L of warm water. The midline fascia was closed with a running looped number 1 PDS suture. The skin was approximated with jalen. The patient tolerated the procedure well. She was in satisfactory condition at the end of the case. All counts were correct at the end of the operation. Assessment: Addie Shukla is a 89 y.o. female with perforated mass at hepatic flexure s/p exploratory laparotomy, right hemicolectomy with en bloc resection of abdominal wall on 05/23. Principal Problem: Sepsis secondary to UTI (HCC) Active Problems: Gastroesophageal reflux disease without esophagitis Radiculopathy of cervical spine Lumbosacral radiculopathy Essential hypertension HLD (hyperlipidemia) Osteoporosis Anemia Active bleeding Hospital Course: Ms. Shukla is a 89 y.o. female with PMH as noted and notable for lumbosacral radiculopathy managed by anesthesia pain in [facility], urge incontinence, vision loss secondary to macular degeneration who had been experiencing longstanding right-sided abdominal pain with acute development of palpable mass/firmness in addition to bowel obstruction necessitating admission on 05/21. CT scan revealed mass consistent with cecal cancer with direct invasion into right-sided abdominal wall. Patient anemic with active bleed secondary to mass requiring transfusion. Patient underwent ex lap and resection of abdominal wall mass and en bloc right colectomy performed by surgery oncology on 05/23. Postoperative course notable for acute postop pain managed with assistance from anesthesia pain service with use of epidural, perioperative antibiotics with co-management from infectious disease service given concern for UTI, ?abdominal abscess. Patient is now off antibiotic management as risk of infection deemed low by ID service. The primary team has consulted PT and OT, and will continue working with therapies to address functional and mobility deficits, rehab is now consulted for post-acute rehab/placement recommendations. The patient resides in an assistive living facility. She ambulates at mod-I level with pyramid cane. She preforms the majority of her ADLs at mod-I level but requires assistance for bathing. At time of exam she endorses post-operative pain. Medical History: Diagnosis Date Arthritis Back pain Constipation Hearing loss HLD (hyperlipidemia) Hypertension Macular degeneration Neuropathy OA (osteoarthritis) Squamous cell carcinoma Symptoms involving digestive system Unspecified cardiovascular disease Urge incontinence Vision loss of right eye Surgical History: Procedure Laterality Date Right colectomy N/A 05/23/2020 Performed by Ryan Mares MD at [facility] OR EN BLOC RADICAL RESECTION RIGHT SOFT TISSUE TUMOR ABDOMINAL WALL MEASURING 13 X 10 CM Right 05/23/2020 Performed by Ryan Mares MD at [facility] OR APPENDECTOMY CATARACT REMOVAL HIP SURGERY HX CHOLECYSTECTOMY HX JOINT REPLACEMENT HX THYROIDECTOMY PARTIAL HYSTERECTOMY Social History Socioeconomic History Marital status: Scheduled Meds:acetaminophen (TYLENOL) tablet 650 mg, 650 mg, Oral, Q6H while awake duloxetine DR (CYMBALTA) capsule 60 mg, 60 mg, Oral, QDAY enoxaparin (LOVENOX) syringe 30 mg, 30 mg, Subcutaneous, QDAY(21) latanoprost (XALATAN) 0.005 % ophthalmic solution 1 drop, 1 drop, Both Eyes, QDAY metoprolol tartrate (LOPRESSOR) tablet 25 mg, 25 mg, Oral, BID oxybutynin XL (DITROPAN XL) tablet 10 mg, 10 mg, Oral, QDAY pantoprazole DR (PROTONIX) tablet 20 mg, 20 mg, Oral, QDAY(21) pregabalin (LYRICA) capsule 75 mg, 75 mg, Oral, BID simvastatin (ZOCOR) tablet 10 mg, 10 mg, Oral, QHS sodium phosphate 16 mmol in sodium chloride 0.9% (NS) 250 mL IVPB, 16 mmol, Intravenous, ONCE Allergies Allergen Reactions Pcn [Penicillins] HIVES Prior Level of Function: The patient was modified independent for all mobility/ambulation and activities of daily living. Home Environment: Home Situation: Lives with Family (spouse) (05/24/2020 2:00 PM) Patient Owned Equipment: Single Point Cane;Roller Walker (small 3 point) (05/24/2020 2:00 PM) Type of Home: Assisted Living (05/24/2020 2:00 PM) Entry Stairs: No Stairs (05/24/2020 2:00 PM) In-Home Stairs: No Stairs (05/24/2020 2:00 PM) No data recorded Bathroom Equipment: Grab Bars in Shower;Shower Chair;Grab Bars Around Toilet (05/24/2020 2:00 PM) Current Level Of Function: PT Gait:Gait Distance: 15 feet Gait: Assistance Level: Minimal Assist, x2 People Gait: Assistive Device: Roller Walker Bed Mobility/Transfers Bed Mobility: Supine to Sit: Minimal Assist, Head of Bed Elevated Transfer Type: Sit to/from Stand Transfer: Assistance Level: Bed, To, Commode, Moderate Assist, of 1st person, Minimal Assist, of 2nd person Transfer: Assistive Device: Roller Walker Transfers: Type Of Assistance: Verbal Cues, For Balance, For Strength Deficit, For Safety Considerations Other Transfer Type: Sit to/from Stand Other Transfer: Assistance Level: To/From, Commode, Moderate Assist, of 1st person, Minimal Assist, of 2nd person Other Transfer: Assistive Device: Roller Walker Other Transfer: Type Of Assistance: Verbal Cues, For Balance, For Safety Considerations End Of Activity Status: Up in Chair, Nursing Notified, Instructed Patient to Request Assist with Mobility, Instructed Patient to Use Call Light Comments: Pt retropulsive upon standing each time. Braces legs back against bed/commode. OT ADL's Where Assessed: Chair(commode) Toileting Assist: Moderate Assist Toileting Deficits: Setup, Steadying, Supervision/Safety, Bedside Commode, Perineal Hygiene Comment: Patient required mod assist for standing balance while completing perineal hygiene initially in standing. Patient then completed perineal hygiene seated on commode with SBA for set up/safety. Anticipate patient would need assistance with clothing management with toileting as well. Review of Systems: A 14 point review of systems was negative except for: that noted in the HPI Physical Exam: BP: 128/77 (05/26 836) Temp: 36.3 C (97.4 F) (05/26 836) Pulse: 76 (05/26 836) Respirations: 16 PER MINUTE (05/26 836) SpO2: 100 % (05/26 836) Body mass index is 31.36 kg/m. Gen: Alert & Oriented X 3 HEENT: EOMI Neck: Supple, no elevated JVP Heart: Extremities well perfused Lungs: audible wheeze, comfortable on RA Abdomen: incision covered in post-operative dressing : - Verdugo Skin: no gross lesions appreciated Ext: purposeful movement of extremities Neuro: Cranial Nerves Cranial Nerves 2-12 are grossly intact with exception of decreased vision right side Upper Extremity Tone Normal Lower Extremity Tone Normal Upper Extremity Sensation Intact to light touch bilaterally Lower Extremity Sensation Intact to light touch bilaterally Memory/Cognition/Speech Within limits Hematology: Lab Results Component Value Date HGB 7.4 05/26/2020 HCT 22.9 Radiology: CXR 05/25 IMPRESSION Progression of subsegmental atelectasis in the lower lobes bilaterally. Small right pleural effusion tracking into the oblique fissure on the right. Small volume pneumoperitoneum on a postprocedural basis. CT A/P 05/22 IMPRESSION 1. Large, ill-defined, locally invasive, perforated mass arising from the hepatic flexure of the colon with an associated gas and feces containing paracolic abscess. This likely represents a perforated primary colon cancer. 2. No hepatic metastatic disease or abdominopelvic lymphadenopathy. Noé Linares MD [id number] Final Diagnosis: A. Right colon terminal ileum; abdominal wall and tumor, en bloc radical resection: Moderately differentiated adenocarcinoma. See CAP synoptic report. Metastatic adenocarcinoma in one of twenty-three lymph nodes (04/05). Tubular adenomas, multiple. Comment: Adenocarcinoma directly invades the omentum. Prominent acute inflammation and an associated abscess extends to and involves the omentum and skeletal muscle of the abdominal wall. COLON AND RECTUM: Resection, Including Transanal Disk Excision of Rectal Neoplasms CAP Version: Colon Rectum 4.0.1.0 Procedure: Right hemicolectomy Other (specify): radical resection abdominal wall tumor, omentectomy Tumor Site: Cecum Right (ascending) colon Tumor Size: Greatest dimension: 6.6 cm Additional dimensions: 5.9 Macroscopic Tumor Perforation: Absent Histologic Type: Adenocarcinoma Histologic Grade: G2: Moderately differentiated Microscopic Tumor Extension: Tumor invades through the muscularis propria into pericolorectal tissue Margins: All margins uninvolved by invasive carcinoma, high-grade dysplasia, intramucosal adenocarcinoma, and adenoma Margins examined: Distance of invasive carcinoma from closest margin: 6 mm Specify margin: mesenteric Other Margin(s) (required only if applicable): Uninvolved by invasive carcinoma Treatment Effect: No known prior treatment Lymphovascular Invasion: Not identified Perineural Invasion: Not identified Tumor Budding: Number of tumor buds in 1 "hotspot" field (specify total number in area=0.785 mm squared): Intermediate score (5-9) Type of Polyp in Which Invasive Carcinoma Arose: None identified Tumor Deposits: Not identified Regional Lymph Nodes Lymph Node Examination Number of Lymph Nodes Involved: 1 Number of Lymph Nodes Examined: 23 Prognostic markers ordered: See Tumor Prognostic Marker addendum in Results Review. Pathologic Stage Classification (pTNM, AJCC 8th Edition) Pathologic Staging (pTNM): pT4b N1a TNM Descriptors Primary Tumor (pT): pT4b: Tumor directly invades or adheres to adjacent organs or structures (omentum) Regional Lymph Nodes (pN): pN1a: One regional lymph node is positive Additional Pathologic Findings: Adenoma(s) The pathologic stage assigned here should be regarded as provisional, as it reflects only current pathologic data and does not incorporate full knowledge of the patient's clinical status and/or prior pathology. Block for Biomarker Testing: [A10] Attestation: By this signature, I attest that I have personally formulated the final interpretation expressed in this report and that the above diagnosis is based upon my examination of the slides and/or other material indicated in this report. +++ +++ Carlton Wynn DO, Resident Past [id number] Hx Past Med/Social Hx: Reviewed Nursing Past Med/Soc Hx, Reviewed and Corrections made Patient Social History Marrital Status: Employed/Student: retired Alcohol Use: Denies Use Smoking Status: Never a Smoker 2nd Hand Smoke Exposure: No Recent Hopitalizations: No Immunizations Up To Date Tetanus Booster (TDap): Unknown Date of Influenza Vaccine: Jan 13, 2020 Seasonal Allergies Seasonal Allergies: No Past Medical History Surgeries: Abdominal, Eye Surgery, Gallbladder, Hysterectomy, Oophorectomy, Orthopedic, Thyroidectomy Cardiac: Hypertension Hysterectomy Gastrointestinal: Hepatitis Musculoskeletal: Arthritis, Chronic Back Pain HEENT: Cataract Cancer: Colon (05/23/20 [facility]) Did You Recieve Any Treatments: Yes What Type of Treatment Did You: Surgical Intervention History of Blood Disorders: Yes (Hepatitis) Prior Level of Function Bed Mobility: 6 Transfers: 6 Gait: 6 Stairs: 6 Indoor Mobility (Ambulation): Independent Prior Devices Use: Walker Has walker and cane at home, she did utilize these occassionally. Self Care: Independent Functional Cognition: Independent Occupation: retired Drive Self: No Leisure Interests: activities at [employer], cooking breakfast, naps Current Level of Fuctioning Sit to Lyin Sit to Stand: 4 Car Transfer: 4 Does the Patient Walk: Yes Mode of Locomotion: Walk Anticipated Mode of Locomotion: Walk Walk 10 feet: 4 Walking 10ft on uneven surface: 4 Gait Assistive Device: FWW Does the Pt Use a Wheelchair: No #of Steps: 1 1 Step (curb): 4 Walking Assistive Device: Walker Picking up an Object: 4 Eatin (s/u at times per pt. Though use of L hand for cutting/ scooping/ feeding) Oral Hygiene: 4 (SBA per clinical judgment.) Shower/Bathe Self: 7 (denies this date.) Upper Body Dressin (mod A per clinical judgment, states assists with doffing shirt. Pt requires min A for donning/ doffing jacket.) Lower Body Dressin (mod A per clinical judgment for threading BLE/ balance.) On/Off Footwear: 6 (Did not complete socks prior. Able to don shoes (slip ons) with IND.) Toileting Hygiene: 3 (per pt, pt requires min A for thoroughness post BM. Pt urinates 2x during session with SBA for ivelisse care.) PM&R Allergy/Meds/Data Review Allergies Coded Allergies: clarithromycin (Verified Allergy, Unknown, 08/18/18) Uncoded Allergies: PENICILLIN (Allergy, Unknown, 08/18/18) Home Medications Scheduled Acetaminophen (Acetaminophen), 500 MG PO TID, (Reported) Beta-Carotene(A) W-C & E/Min (Ocutabs Tablet), 2 EACH PO DAILY, (Reported) Beta-Carotene(A) W-C & E/Min (Ocutabs Tablet), 1 EACH PO HS, (Reported) Calcium Carbonate/Vitamin D3 (Calcium 600 + Vit D3 Tablet), 1 EA PO 1800, (Reported) Docusate Sodium (Dok), 100 MG PO BID, (Reported) Duloxetine HCl (Duloxetine HCl), 60 MG PO DAILY, (Reported) Ferrous Sulfate (Ferrous Sulfate), 325 MG PO DAILY, (Reported) Glucosamine HCl/Chondr Salmeron A Na (Osteo Bi-Flex Caplet), 1 EA PO DAILY, (Reported) Latanoprost (Xalatan), 1 DROP OU HS, (Reported) Metoprolol Tartrate (Metoprolol Tartrate), 25 MG PO BID, (Reported) Valdez-3 Fatty Acids/Fish Oil (Valdez 3 1,000 mg Softgel), 1 EACH PO 1800 ON TUE,TUE,, (Reported) Valdez-3/Dha/Epa/Fish Oil (Valdez-3 Fish Oil 1,000 mg Sftg), 1 EA PO DAILY, (Reported) Pantoprazole Sodium (Pantoprazole Sodium), 20 MG PO DAILY, (Reported) Pregabalin (Pregabalin), 75 MG PO BID, (Reported) Simvastatin (Simvastatin), 10 MG PO HS, (Reported) Tolterodine Tartrate (Tolterodine Tartrate ER), 4 MG PO DAILY, (Reported) Scheduled PRN Omeprazole (Omeprazole), 20 MG PO DAILY PRN for HEARTBURN, (Reported) Tramadol HCl (Tramadol HCl), 50 MG PO Q6H PRN for PAIN-MODERATE (5-7), (Reported) Discontinued Medications Capsaicin (Capsaicin), 1 APPLIC TOP UD PRN for ITCHING, (Reported) Discontinued Reason: Duplicate Order Garlic (Garlic), 1,000 MG PO DAILY, (Reported) Discontinued Reason: Duplicate Order Menthol/Camphor (Sarna Anti-Itch Lotion), 1 APPLIC TP UD PRN for ITCHING, (Reported) Discontinued Reason: No Longer Taking Current Medications Current Medications Reviewed Review of Systems Constitutional: see HPI EENTM: no symptoms reported Respiratory: no symptoms reported Cardiovascular: no symptoms reported Gastrointestinal: abdominal pain, loss of appetite, nausea Genitourinary: no symptoms reported Musculoskeletal: back pain, joint pain Skin: no symptoms reported Psychiatric/Neurological: No Symptoms Reported All Other Systems Reviewed Negative Unless Noted: Yes Physical Exam Physical Exam Vital Signs Vital Signs - First Documented 05/28/20 14:20 Temp 36.4 Pulse 96 Resp 18 B/P (MAP) 192/97 (128) Pulse Ox 94 O2 Delivery Room Air Capillary Refill : Height, Weight, BMI Height: 5'3.00" Weight: 180lbs. oz. 81.397859mx; 33.78 BMI Method:Stated General Appearance: No Apparent Distress, WD/WN, Chronically ill Eyes: Bilateral Eye Normal Inspection, Bilateral Eye PERRL HEENT: PERRL/EOMI, Normal ENT Inspection, Pharynx Normal Neck: Full Range of Motion, Normal Inspection, Non Tender, Supple, Carotid Bruit Respiratory: Chest Non Tender, Lungs Clear, Normal Breath Sounds, No Accessory Muscle Use, No Respiratory Distress Cardiovascular: Regular Rate, Rhythm, No Edema, No Gallop, No JVD, No Murmur, Normal Peripheral Pulses Gastrointestinal: Normal Bowel Sounds, No Organomegaly, No Pulsatile Mass, Non Tender, Soft Back: Normal Inspection, No CVA Tenderness, No Vertebral Tenderness Extremity: Normal Capillary Refill, Normal Inspection, Normal Range of Motion, Non Tender, No Calf Tenderness, No Pedal Edema Neurologic/Psychiatric: Alert, Oriented x3, Normal Mood/Affect, bottle booth attendant II-XII Norm as Tested, Abnormal Gait, Motor Weakness (generalized weakness 3/5 extremities) Skin: Normal Color, Warm/Dry Lymphatic: No Adenopathy PM&R Medical Assessment & Plan REHAB/MEDICAL ASSESSMENT AND PLAN: REHAB IMPAIRMENT GROUP: Critical illness myopathy ETIOLOGIC DIAGNOSIS: Critical illness myopathy The comorbidities that impact the patients function and/or functional outcome by: advanced age, new colon cancer dx, recent sepsis, elevated BP REHAB PLAN: The patient is being admitted to our comprehensive inpatient rehabilitation facility and can tolerate the intensity of service consisting of at least: 180 minutes of therapy a day, 5 out of 7 days a week Rehab treatment will consist of: PT OT will both focus on increasing strength and with use of AD to help increase independence in order to return to AL status The patient/family has a good understanding of our discharge process and will benefit from an interdisciplinary inpatient rehabilitation program. The patient has potential to make improvement and is in need of at least two of the following multidisciplinary therapies including but not limited to physical, occupational, speech, and prosthetics and orthotics. Additionally the patient will need services from respiratory, nutritional services, wound care, psychology, etc. (Customize this to each patient). Given the patients complex condition and risk of further medical complications, rehabilitation services cannot be safely or effectively provided at a lower level of care such as a penitentiary facility. BARRIERS TO DISCHARGE: Advanced age and cancer dx ESTIMATED LOS: 14 days DISPOSITION: Home RELEVANT CHANGES SINCE PREADMISSION SCREENING: I have compared the patients medical and functional status at the time of the preadmission screening and there are: no changes PROGNOSIS: Fair REHABILITATION GOALS: 1. PT OT will both focus on increasing strength and with use of AD to help increase independence in order to return to AL status All the above goals were reviewed with the patient and he/she is in agreement. By signing this document, I acknowledge that I have personally performed a full physical examination on this patient within 24 hours of admission to this inpatient rehabilitation facility and have determined the patient to be able to tolerate the above course of treatment at an intensive level for a reasonable period of time. I will be completing a detailed individualized Plan of Care for this patient by day #4 of the patients stay based upon the Preadmission Screen, the Post-Admission Evaluation, and the therapy evaluations. Admission Dx/Comorbidities: (1) Debility ICD Codes: R53.81 - Other malaise (2) Adenocarcinoma, colon ICD Codes: C18.9 - Malignant neoplasm of colon, unspecified (3) Cancer, metastatic ICD Codes: C79.9 - Secondary malignant neoplasm of unspecified site (4) Hypertension ICD Codes: I10 - Essential (primary) hypertension (5) Anemia ICD Codes: D64.9 - Anemia, unspecified (6) Advanced age ICD Codes: R54 - Age-related physical debility (7) History of sepsis ICD Codes: Z86.19 - Personal history of other infectious and parasitic diseases (8) History of UTI ICD Codes: Z87.440 - Personal history of urinary (tract) infections Assessment/Plan Assessment and Plan Assess & Plan/Chief Complaint Assessment: Debility 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
[2020-05-28] MEDS ORDERED: cloNIDine 0.1 MG (CATAPRES) TAB PO PRN (20:30)
[2020-05-28] MEDS ORDERED: NITROGLYCERIN 2% OINT 1 GM UNIT DOSE PACKET TOP PRN (20:30)
[2020-05-28] MEDS: hydrALAZINE (APRESOLINE) 25 MG TAB PO SCH (20:56)
[2020-05-28] MEDS ORDERED: NON-FORMULARY MEDICATION 1 EA EA (Docusate Sodium (Dok) 100 MG) PO SCH (21:00)
[2020-05-28] MEDS ORDERED: [UNRECOGNIZED DRUG - OTHER] PO SCH (21:00)
[2020-05-28 23:46] VITALS: BP 165/79
[2020-05-29 05:26] VITALS: BP 150/67
[2020-05-29 05:51] LABS: BASOPHILS % (AUTO) 0 % (0-10); EOSINOPHILS # (AUTO) 0.2 10^3/uL (0.0-0.3); EOSINOPHILS % (AUTO) 3 % (0-10); HEMATOCRIT 23 % (35-52); LYMPHOCYTES # (AUTO) 1.9 10^3/uL (1.0-4.0); LYMPHOCYTES % (AUTO) 20 % (12-44); MEAN CORPUSCULAR HEMOGLOBIN 27 pg (25-34); MEAN CORPUSCULAR HGB CONC 30 g/dL (32-36); MEAN CORPUSCULAR VOLUME 90 fL (80-99); MEAN PLATELET VOLUME 9.5 fL (9.0-12.2); MONOCYTES # (AUTO) 0.9 10^3/uL (0.0-1.0); MONOCYTES % (AUTO) 9 % (0-12); NEUTROPHILS # (AUTO) 6.2 10^3/uL (1.8-7.8); NEUTROPHILS % (AUTO) 65 % (42-75); PLATELET COUNT 312 10^3/uL (130-400); WHITE BLOOD COUNT 9.5 10^3/uL (4.3-11.0)
--- NOTE | 2020-05-29 06:01 | PM&R Progress Note ---
Subjective HPI/CC On Admission Date Seen by Provider: May 29, 2020 Time Seen by Provider: 08:00 Subjective/Events-last exam 05/29/20: Patient doing well Hgb 7.0 so ordered iron infusion and 1 unit of blood due to paleness and fatigue level Received 1 unit of blood at [facility] Albumin 2.7 Improved BP with meds BM++ Midline will be placed Review of Systems General: Fatigue, Malaise Gastrointestinal: Abdominal Pain Objective Exam Vital Signs Vital Signs Date Time Temp Pulse Resp B/P (MAP) Pulse Ox O2 Delivery O2 Flow Rate FiO2 05/29/20 20:45 Room Air 05/29/20 16:34 36.6 88 18 161/72 97 Capillary Refill : General Appearance: No Apparent Distress, WD/WN, Chronically ill, Other (pale) HEENT: PERRL/EOMI, Normal ENT Inspection, Pharynx Normal Neck: Full Range of Motion, Normal Inspection, Non Tender, Supple, Carotid Bruit Respiratory: Chest Non Tender, Lungs Clear, Normal Breath Sounds, No Accessory Muscle Use, No Respiratory Distress Cardiovascular: Regular Rate, Rhythm, No Edema, No Gallop, No JVD, No Murmur, Normal Peripheral Pulses Gastrointestinal: Normal Bowel Sounds, No Organomegaly, No Pulsatile Mass, Non Tender, Soft Back: Normal Inspection, No CVA Tenderness, No Vertebral Tenderness Extremity: Normal Capillary Refill, Normal Inspection, Normal Range of Motion, Non Tender, No Calf Tenderness, No Pedal Edema Neurologic/Psychiatric: Alert, Oriented x3, Normal Mood/Affect, flight instructor II-XII Norm as Tested, Abnormal Gait, Motor Weakness (generalized weakness 3/5 extremities) Skin: Normal Color, Warm/Dry Lymphatic: No Adenopathy Results/Procedures Lab Patient resulted labs reviewed. FIM Transfers Therapy Code Descriptions/Definitions Functional [place] Measure: 0=Not Assessed/NA 4=Minimal Assistance 1=Total Assistance 5=Supervision or Setup 2=Maximal Assistance 6=Modified [place] 3=Moderate Assistance 7=Complete IndependenceSCALE: Activities may be completed with or without assistive devices. 1-Hmkhexzoxk-xuvnarl completes the activity by him/herself with no assistance from a helper. 5-Set-up or Clean-up Assistance-helper sets up or cleans up; patient completes activity. [place] assists only prior to or following the activity. 4-Supervision or Touching Assistance-helper provides verbal cues and/or touching/steadying and/or contact guard assistance as patient completes activity. Assistance may be provided throughout the activity or intermittently. 3-Partial/Moderate Assistance-helper does LESS THAN HALF the effort. [place] lifts, holds or supports trunk or limbs, but provides less than half the effort. 2-Substantial/Maximal Assistance-helper does MORE THAN HALF the effort. [place] lifts or holds trunk or limbs and provides more than half the effort. 4-Excgpluhy-pdnjxn does ALL the effort. Patient does none of the effort to complete the activity. Or, the assistance of 2 or more helpers is required for the patient to complete the activity. If activity was not attempted, code reason: 7-Patient Refused. 9-Not Applicable-not attempted and the patient did not perform the activity before the current illness, exacerbation or injury. 10-Not Attempted due to Environmental Limitations-(lack of equipment, weather restraints, etc.). 88-Not Attempted due to Medical Conditions or Safety Concerns. Sit to Lying (QC): 6 Sit to Stand (QC): 4 Car Transfer (QC): 4 Gait Training Does the Patient Walk?: Yes Walk 10 feet (QC): 4 Walking 10ft/uneven surface-QC: 4 Gait Assistive Device: FWW Wheelchair Training Does the Pt Use a Wheelchair?: No Stair Training #of Steps: 1 1 Step (curb) (QC): 4 Balance Picking up an Object (QC): 4 ADL-Treatment Eating (QC): 5 (s/u at times per pt. Though use of L hand for cutting/ scooping/ feeding) Oral Hygiene (QC): 4 (SBA per clinical judgment.) Shower/Bathe Self (QC): 7 (denies this date.) Upper Body Dressing (QC): 3 (mod A per clinical judgment, states as sists with doffing shirt. Pt requires min A for donning/ doffing jacket.) Lower Body Dressing (QC): 3 (mod A per clinical judgment for threading BLE/ balance.) On/Off Footwear (QC): 6 (Did not complete socks prior. Able to don shoes (slip ons) with IND.) Toileting Hygiene (QC): 3 (per pt, pt requires min A for thoroughness post BM. 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
--- NOTE | 2020-05-29 06:01 | Individualized Plan of Care ---
Individualized Plan of Care Rehab Nursing IPOC Order Admission Date May 28, 2020 at 14:20 Current Orders Orders Admission Order(Inpt,Obs,Sdc) (05/28/20 05:38) Vital Signs: Per Unit Policy ( 16,00 (05/28/20 05:38) Dilan Damon (05/28/20 05:38) Sequential Compression Device .admit (05/28/20 05:38) Budget Engineer-Inpt Rehab Con (05/28/20 05:38) Rehab Nursing Orders-Ipoc (05/28/20 05:38) Physical Therapy Rehab Orders (05/28/20 05:38) Occupational Therapy Rehab Ord (05/28/20 05:38) Speech Therapy Rehab Orders (05/28/20 05:38) Cbc With Automated Diff (05/29/20 06:00) Comprehensive Metabolic Panel (05/29/20 06:00) Intake & Output 06,14,22 (05/28/20 05:38) Precautions (Aru) (05/28/20 05:38) Weekly Weight WEEK (05/28/20 05:38) Rehab-Intensity Of Therapy (05/28/20 05:38) Initiate Admission Nursing Pro .admission (05/28/20 05:38) Acetaminophen Tablet (Tylenol Tablet) (05/28/20 05:45) Alprazolam Tablet (Xanax Tablet) (05/28/20 05:45) Calcium Carbonate Chew Tablet (Antacid C (05/28/20 05:45) Diphenhydramine Tablet (Benadryl Tablet) (05/28/20 05:45) Docusate Sodium Capsule (Colace Capsule) (05/28/20 09:00) Docusate Sodium Capsule (Colace Capsule) (05/28/20 05:45) Bisacodyl Suppository (Dulcolax Supposit (05/28/20 05:45) Lactulose Oral Solution (Enulose Oral So (05/28/20 05:45) Na Phos/Na Biphos Enema (Fleet Enema Brian (05/28/20 05:45) Guaifenesin/Codeine Syrup (Robitussin Ac (05/28/20 05:45) Loperamide Tablet (Imodium Tablet) (05/28/20 05:45) Melatonin Tablet (Melatonin Tablet) (05/28/20 05:45) Polyethylene Glycol Powder Pkt (Miralax (05/28/20 09:00) Ondansetron Oral Dissolve Tab (Zofran (05/28/20 05:45) Senna S Tablet (Senokot S Tablet) (05/28/20 09:00) Initiate Admission Nursing Pro .admission (05/28/20 05:38) Admission Arrival Bed Request (05/28/20 14:36) Request Ot Additional Orders (05/28/20 15:27) Nursing Communication (Order) (05/28/20 15:27) Acetaminophen Tablet/Caplet (Tylenol T (05/28/20 15:45) General/Regular (05/28/20 Dinner) Incentive Spirometry (Nursing) Q2H (05/28/20 16:39) Amlodipine Tablet (Norvasc Tablet) (05/28/20 16:45) Amlodipine Tablet (Norvasc Tablet) (05/29/20 09:00) Acetaminophen Tablet (Tylenol Tablet) (05/28/20 21:00) Calcium Carbonate W/Vitamin D3 (Calcarb (05/28/20 18:00) Ferrous Sulfate Tablet (Feosol Tablet) (05/29/20 08:00) Latanoprost 0.005% Ophth Soln (Xalatan 0 (05/28/20 21:00) Metoprolol Tartrate (Ir) Tab (Lopressor (05/28/20 21:00) Omeprazole (Non-Formulary) (Prilosec (No (05/28/20 16:45) Pantoprazole Tablet (Protonix Tablet) (05/29/20 09:00) Pregabalin Capsule (Lyrica Capsule) (05/28/20 21:00) Simvastatin Tablet (Zocor Tablet) (05/28/20 21:00) Tolterodine La Capsule (Detrol La Capsul (05/29/20 09:00) Rx-Tramadol Hcl (Rx-Ultram) (05/28/20 16:45) (Nf) Beta-Carotene(A) W-C & E/Min ([place] (05/28/20 21:00) (Nf) Beta-Carotene(A) W-C & E/Min ([place] (05/29/20 09:00) (Nf) Docusate Sodium (Dok) (05/28/20 21:00) (Nf) Duloxetine Hcl (05/29/20 09:00) (Nf) Glucosamine Hcl/Chondr [place]mer[place] A Na (Ost (05/29/20 09:00) [place] 3 Capsule (Fish Oil Capsule) (05/28/20 18:00) (Nf) [place]-3/Dha/Epa/Fish Oil ([place]-3 F (05/29/20 09:00) Duloxetine Capsule (Cymbalta Capsule) (05/29/20 09:00) Pantoprazole Tablet (Protonix Tablet) (05/28/20 17:00) [place] 3 Capsule (Fish Oil Capsule) (05/29/20 09:00) Tramadol Tablet (Ultram Tablet) (05/28/20 17:00) Therapeutic Multivitamin Tab (Vitamins, (05/29/20 07:00) Dressing Order (Intervention) UD (05/28/20 17:47) Hydralazine Tablet (Apresoline Tablet) (05/28/20 21:00) Clonidine Tablet (Catapres Tablet) (05/28/20 20:30) Nitroglycerin Ointment (Nitrobid Ointme (05/28/20 20:30) Iron Test (Fe) (05/29/20 06:00) Iron Sucrose Injection (Venofer Injectio (05/29/20 09:00) Cyanocobalamin Injection (Vitamin B-12 I (05/29/20 08:00) Patient Visit (05/28/20 ) Pt Eval Moderate Complexity (05/28/20 ) Exercise Therap, Ea 15 Min (05/28/20 ) Functional Activities, Ea 15 (05/28/20 ) Potassium Chloride (Tablet) (Klor Con Ta (05/29/20 08:30) Potassium Chloride (Tablet) (Klor Con Ta (05/29/20 18:00) Venous Access Request Order (05/29/20 08:19) Vital Signs: Special (Order) (05/29/20 08:35) Consent-Obtain Consent For (05/29/20 08:35) Monitor S/S Transfusion Reacti (05/29/20 08:35) Ns Iv 500 Ml (Sodium Chloride 0.9%) (05/29/20 08:45) Type And Screen (05/29/20 08:35) Furosemide Injection (Lasix Injection) (05/29/20 08:45) Red Cells Leukocytes Reduced (05/29/20 08:35) Patient Visit (05/29/20 ) Speech Sound Lang Comp (05/29/20 ) Patient Visit (05/29/20 ) Functional Activities, Ea 15 (05/29/20 ) Exercise Therap, Ea 15 Min (05/29/20 ) Patient Visit (05/29/20 ) Exercise Therap, Ea 15 Min (05/29/20 ) Gait Training, Ea 15 Min (05/29/20 ) Rehab Nursing Orders: Ongoing Assess. of Cognitive Status, Ongoing Assess. of Function Status, Bladder Management, Bladder Scan, Bladder Training, Bowel Management, Bowel Training, Disease Management & Educaiton, DVT Prophylaxis, Fall Prevention, Fluid/Electrolyte/Nutrition Mgmt, Infection Prevention, Medication Management & Education, Management of Risks & Complications, Management of Skin Intergrity, Nutrition Management, Pain Management, Patient/Family Support, Safety Management, Wound Management Intensity of Therapy to be met Patient to be seen: Min.3h per day/5 of 7d PT IPOC Problem List: Activity Tolerance, Functional Strength, Safety, Balance, Gait, Transfer, ROM Treatment Plan: Continue Plan of Care Education, Functional Strength, Gait, Safety, Therapeutic Exercise Treatment Duration: Jun 04, 2020 Frequency: 6 times per week Estimated Hrs Per Day: 1.5 hours per day OT IPOC Problems: Decreased Activ Tolerance, Decreased UE Strength, Impaired I ADL's, Impaired Self-Care Skills, Restricted Funct UE ROM OT Treatment, Training and Edu: Yes Plan of Care: ADL Retraining, Caregiver Training, Concurrent Therapy, Functional Mobility, Group Exercise/Act as Ind, UE Funct Exercise/Act Treatment Duration: Jun 11, 2020 Frequency: At least 5 of 7 days/Wk (IRF) Estimated Hrs Per Day: 1.[address] IPOC Speech Therapy Treatment Plan: Discontinue ST Treatment Duration: May 29, 2020 Frequency: Modified Program (IRF) Estimated Hrs Per Day: Other Budget Engineer/Case Mgmt Budget Engineer/Case Managemen: Discharge Planning Dietitian/Professor Of Food Biochemistry Dietitian/Professor Of Food Biochemistry to monitor nutritional status and make changes and/or recommendations as needed and work with speech pathology on dietary upgrades as the occur. Physician IPOC Medical Issues being managed closely and that require the 24 hour availability of a physician: Recent critical illness with complex abdominal surgery to resect mass will require close monitoring of decompensation Medical Issues: Bowel/Bladder Function, DVT Prophylaxis, Falls Precautions, F luid/Electrolyte/Nutrition Balance, Infection Protection, Pain Management Brief Synthesis of Preadmission Screen, Post-Admission Evaluation, and Therapy Evaluations: PT OT will focus on regaining strength with the use of AD in order to return to [place] prior independent living Medical Prognosis: Good Anticipated Length of Stay: 10 days CALVIN LAURA DO May 29, 2020 06:01
[2020-05-29 06:11] LABS: ALBUMIN 2.7 GM/DL (3.2-4.5); BILIRUBIN,TOTAL 0.3 MG/DL (0.1-1.0); CALCIUM 8.1 MG/DL (8.5-10.1); CREATININE SERUM 0.97 MG/DL (0.60-1.30); POTASSIUM 3.4 MMOL/L (3.6-5.0); TOTAL PROTEIN 5.5 GM/DL (6.4-8.2)
[2020-05-29] MEDS: MULTIVIT W/MINERALS TAB (THERAGRAN M) PO SCH (06:21)
[2020-05-29] MEDS ORDERED: CYANOCOBALAMIN INJ 1000 MCG/ML IM ONE (08:00)
[2020-05-29 08:30] VITALS: BP 178/76
[2020-05-29] MEDS ORDERED: KCL 10 MEQ TAB (MICRO K) PO ONE (08:30)
[2020-05-29] MEDS ORDERED: NS IV 500 ML 500 ML IV SCH (08:45)
[2020-05-29] MEDS ORDERED: FUROSEMIDE 40 MG/4 ML INJ (LASIX) IVP ONE (08:45)
--- NOTE | 2020-05-29 08:55 | Occupational Ther Daily Note ---
OT Current Status-Daily Note Subjective Pt seated in recliner, states some fatigue this AM. Per nursing, pt's Hgb 7.0 (low), and pt to receive blood transfusion later today. Mental Status/Objective Patient Orientation: Person, Place, Time, Situation ADL-Treatment Therapy Code Descriptions/Definitions Functional [place] Measure: 0=Not Assessed/NA 4=Minimal Assistance 1=Total Assistance 5=Supervision or Setup 2=Maximal Assistance 6=Modified [place] 3=Moderate Assistance 7=Complete IndependenceSCALE: Activities may be completed with or without assistive devices. 3-Mlribvrrdw-moperri completes the activity by him/herself with no assistance from a helper. 5-Set-up or Clean-up Assistance-helper sets up or cleans up; patient completes activity. [place] assists only prior to or following the activity. 4-Supervision or Touching Assistance-helper provides verbal cues and/or touching/steadying and/or contact guard assistance as patient completes activity. Assistance may be provided throughout the activity or intermittently. 3-Partial/Moderate Assistance-helper does LESS THAN HALF the effort. [place] lifts, holds or supports trunk or limbs, but provides less than half the effort. 2-Substantial/Maximal Assistance-helper does MORE THAN HALF the effort. [place] lifts or holds trunk or limbs and provides more than half the effort. 2-Yrjrmxpwf-vpqwyl does ALL the effort. Patient does none of the effort to complete the activity. Or, the assistance of 2 or more helpers is required for the patient to complete the activity. If activity was not attempted, code reason: 7-Patient Refused. 9-Not Applicable-not attempted and the patient did not perform the activity before the current illness, exacerbation or injury. 10-Not Attempted due to Environmental Limitations-(lack of equipment, weather restraints, etc.). 88-Not Attempted due to Medical Conditions or Safety Concerns. Shower/Bathe Self (QC): 3 (Assist BLE lower legs/feet, buttocks, and L armpit. Pt able to wash other parts seated at recliner.) Upper Body Dressing (QC): 3 (Pt required assistance doffing pullover shirt from RUE, pt able to don.) Lower Body Dressing (QC): 3 (Pt threaded RLE, assist to thread LLE, pt then completed pant hike with CGA.) Toileting Hygiene (QC): 3 (Pt performed clothing management, and hygiene of periarea. Pt required assistance with hygiene of buttocks.) Toilet Transfer (QC): 4 (CGA on/off toilet.) Other Treatment Pt seated in recliner, states fatigue. Pt requests sponge bath vs shower due to fatigue. Pt used FWW to ambulate into bathroom and onto toilet, CGA. Pt completed toileting, then returned to recliner. Pt completed sponge bath and dressing at recliner, then washed her hair using a shower cap. Pt reports prior injury to R shoulder, causing difficulties flexing her shoulder. Pt able to use LUE to wash L side and top of head with shower cap, assist with R side of the head. Pt combed L side of the head, required assistance with R side. Rest breaks taken throughout tx as needed. Post tx, pt seated in recliner, call light in reach and all needs met. Education OT Patient Education: Correct positioning, Energy conservation, Modified ADL techniques, Progress toward Goal/Update tx plan, Purpose of tx/functional activities Teaching Recipient: Patient Teaching Methods: Discussion Response to Teaching: Verbalize Understanding OT Short Term Goals Short Term Goals Upper body dressin Lower body dressin OT Parent Partner Goals Assisted Goals Time Frame: Jun 11, 2020 Eating (QC): 6 Oral Hygiene (QC): 6 Toileting Hygiene (QC): 6 Shower/Bathe Self (QC): 6 Upper Body Dressing (QC): 3 Lower Body Dressing (QC): 6 On/Off Footwear (QC): 6 Additional Goals: 1-Demonstrate ADL Tasks, 2-Verbalize Understanding, 3- ImproveStrength/Matt 1=Demonstrate adherence to instructed precautions during ADL tasks. 2=Patient will verbalize/demonstrate understanding of assistive devic es/modifications for ADL. 3=Patient will improve strength/tolerance for activity to enable patient to perform ADL's. OT Education/Plan Problem List/Assessment Assessment: Decreased Activ Tolerance, Decreased UE Strength, Impaired I ADL's, Impaired Self-Care Skills, Restricted Funct UE ROM Discharge Recommendations Plan/Recommendations: Continue POC Treatment Plan/Plan of Care Patient would benefit from OT for education, treatment and training to promote independence in ADL's, mobility, safety and/or upper extremity function for ADL' s. Plan of Care: ADL Retraining, Caregiver Training, Concurrent Therapy, Functional Mobility, Group Exercise/Act as Ind, UE Funct Exercise/Act Treatment Duration: Jun 11, 2020 Frequency: At least 5 of 7 days/Wk (IRF) Estimated Hrs Per Day: 1.5 hours per day Agreement: Yes Rehab Potential: Fair Time/GCodes Start Time: 08:00 Stop Time: 09:00 Total Time Billed (hr/min): 60 Billed Treatment Time 1, ADL 4 TIMOTHY BAKER OT May 29, 2020 08:55
[2020-05-29] MEDS: FERROUS SULF 325 MG (IRON) TAB PO SCH (08:57)
[2020-05-29] MEDS: TOLTERODINE LA 4 MG (DETROL) CAP PO SCH (08:58)
[2020-05-29] MEDS: PREGABALIN 75 MG (LYRICA) CAP PO SCH ×2 (08:58→21:03)
[2020-05-29] MEDS: IRON SUCROSE 200 MG/10 ML (VENOFER) VIAL IV SCH (08:58)
[2020-05-29] MEDS: DULoxetine 30 MG (CYMBALTA) CAP PO SCH (08:58)
[2020-05-29] MEDS: hydrALAZINE (APRESOLINE) 25 MG TAB PO SCH ×3 (08:59→21:03)
[2020-05-29] MEDS: amLODIPine 5 MG (NORVASC) TAB PO SCH (08:59)
[2020-05-29] MEDS: polyethylene glycoL POWDER 17 GM (MIRALAX) PACK PO SCH ×2 (08:59→19:45)
[2020-05-29] MEDS: meTOprolol TARTRATE 25 MG (LOPRESSOR) TABLET PO SCH ×2 (08:59→21:03)
[2020-05-29] MEDS: DOCUSATE SODIUM 100 MG (COLACE) CAP PO SCH ×2 (08:59→19:46)
[2020-05-29] MEDS: OMEGA 3 (FISH OIL) 1000 MG CAP PO SCH (08:59)
[2020-05-29] MEDS: PANTOPRAZOLE 20 MG TABLET (PROTONIX) PO SCH (08:59)
[2020-05-29] MEDS: ACETAMINOPHEN 500 MG TAB (TYLENOL) PO SCH ×3 (08:59→21:03)
[2020-05-29] MEDS ORDERED: NON-FORMULARY MEDICATION 1 EA EA (Omega-3/Dha/Epa/Fish Oil (Omega-3 Fish Oil 1,000 mg Sftg PO SCH (09:00)
[2020-05-29] MEDS ORDERED: NON-FORMULARY MEDICATION 1 EA EA (Duloxetine HCl 60 MG) PO SCH (09:00)
[2020-05-29] MEDS ORDERED: [UNRECOGNIZED DRUG - OTHER] PO SCH (09:00)
[2020-05-29] MEDS: SENNA W/DOCUSATE (SENOKOT S) TABLET PO SCH ×2 (09:00→19:46)
--- NOTE | 2020-05-29 09:29 | ST Cognitive Linguistic Eval ---
Speech Evaluation-General Medical Diagnosis sepsis/ R hemioclectomy Onset Date: May 21, 2020 Therapy Diagnosis Therapy Diagnosis: Cognitive-communication Referral Referring Physician: Dr. Schuster Medical History Reviewed History: Yes Social History Current Living Status: Spouse Speech PLF-Current Status Prior Level of Function Patient lives at home with her where she was independent for much of her daily needs. They have family nearby who assist them as needed. Subjective Patient was pleasant and cooperative with the cognitive assessment. Language Eval: Auditory Comprehends Simple Yes/No Ques: Functional Indent/Objects [place]: Functional Ident/Pics in [place]: Functional Follows 1-Step Commands: Functional Follows Complex Directions: Functional Follows General Conversations: Functional Language Eval: Verbal Language Completes Spontaneous Greeting: Functional Produces Auto, Serial Info: Functional Imitates Simple Words/Phrases: Functional Word Finding: Functional Requests Basic Needs: Functional States Basic Personal Info: Functional Expresses Complex Ideas: Functional Objective Cognitive Domain Attention: WNL Memory: WNL Problem Solving: Functional Executive Functions: WNL Visuospatial Skills: WNL Composite Severity Rating: WNL Clock Drawing Severity Rating: WNL Objective Formal/Standardized Tests [facility] Mental Status ([facility]) Results 28/30, within normal range of function Oral Motor/Speech Production Within Normal Limits Impression Patient is a pleasant 89 y/o female who was admitted to the ARU due to debility and critical illness myopathy. Patient was given the SLUMS this morning with a score of 28/30 obtained. Patient's score is within normal range of function. Her speech and swallowing are also within normal range of function. At this time patient does not require further ST services. Speech Patient Assess Expression of Ideas/Wants: Expression (4) Understanding Verbal Content: Understands (4) Brief Interview-Mental Status: Yes Repetition of Three Words: Three (3) Temporal Orientation: Year: Correct (3) Temporal Orientation: Month: Accurate within 5 days(2) Temporal Orientation: Day: Correct (1) Recall : Wear to say "Sock": Yes,after cueing (1) Recall : Color: Yes, no cue required (2) Recall : Bed: Yes, no cue required (2) Memory/Recall Ability: Current season, That he or she is in a hsp/hsp unit Speech-Plan Patient/Family Goals Patient/Family Goals: Patient will discharge to her home where she lives with her . Treatment Plan Speech Therapy Treatment Plan: Discontinue ST Treatment Duration: May 29, 2020 Frequency: 1 time per week Estimated Hrs Per Day: .5 hour per day Rehab Potential: Fair Barriers to Learning: Patient's age, recent critical illness Pt/Family Agrees to Plan: Yes Safety Risks/Education Teaching Recipient: Patient Teaching Methods: Discussion Response to Teaching: Verbalize Understanding Education Topics Provided: Safety within her room, communication of wants/needs Time Speech Therapy Time In: 09:00 Speech Therapy Time Out: 09:30 Total Billed Time: 30 Billed Treatment Time 1, MAMI Carlson May 29, 2020 09:29
--- NOTE | 2020-05-29 11:00 | Physical Therapy Daily Note ---
PT Daily Note-Current Subjective Pt laying in bed pre tx. Patient consented to begin PT. She reported pain of 3/10 in her low back area, but only noted soreness in her abdominal area. Appearance Pt left seated in bathroom post tx, with call string in reach. Patient instructed to use it when done to call nurse. Mental Status Patient Orientation: Person, Place, Time, Normal For Age Transfers SCALE: Activities may be completed with or without assistive devices. 5-Hrqpxizkqu-itfwjae completes the activity by him/herself with no assistance from a helper. 5-Set-up or Clean-up Assistance-helper sets up or cleans up; patient completes activity. [place] assists only prior to or following the activity. 4-Supervision or Touching Assistance-helper provides verbal cues and/or touching/steadying and/or contact guard assistance as patient completes activity. Assistance may be provided throughout the activity or intermittently. 3-Partial/Moderate Assistance-helper does LESS THAN HALF the effort. [place] lifts, holds or supports trunk or limbs, but provides less than half the effort. 2-Substantial/Maximal Assistance-helper does MORE THAN HALF the effort. [place] lifts or holds trunk or limbs and provides more than half the effort. 4-Hraqfctae-ckjgmd does ALL the effort. Patient does none of the effort to complete the activity. Or, the assistance of 2 or more helpers is required for the patient to complete the activity. If activity was not attempted, code reason: 7-Patient Refused. 9-Not Applicable-not attempted and the patient did not perform the activity before the current illness, exacerbation or injury. 10-Not Attempted due to Environmental Limitations-(lack of equipment, weather restraints, etc.). 88-Not Attempted due to Medical Conditions or Safety Concerns. Roll Left & Right (QC): 6 Sit to Lying (QC): 4 Lying to Sitting/Side of Bed(Q: 4 Sit to Stand (QC): 4 Chair/Vbc-rt-Ogwfb Xfer(QC): 4 Toilet Transfer (QC): 4 Patient was able to get her pants down but they were soiled and needed assist to get them off and put new ones on. Female PT student assisted with this. Gait Training Does the Patient Walk?: Yes Distance: 30' x2 ; 120' Walk 10 feet (QC): 4 Walk 50 ft with 2 Turns(QC): 4 Gait Persons Needed: 1 Gait Assistive Device: FWW Pt gait is steady, but slower than previous tx secondary to fatigue. Patient does have a slight right tendelenburg gait. Exercises Seated Therapy Exercises: Ankle pumps, Long arc quads, Hip flexion Seated Reps: 10 Standing: Hamstring curls, Heel/toe raises Standing Reps: 15 Patient tolerated standing exercises well, and was able to maintain good control with heel/toe raises. NuStep Minutes: 9 NuStep Workload: 3 Treatments Gait training, endurance, LE strengthening, balance Assessment Current Status: Fair Progress Pt was very fatigued and required several rest breaks. Had to stop nustep exercise at 9 min secondary to fatigue. BP was taken at start of tx and was 163/74, nurse states she had given her BP meds not too long ago and her BP would probably continue to decrease. Following nustep exercise, BP taken and recorded at 148/70. Progressed patient to seated exercises from that point, and patient tolerated exercises well, but noted she was still very tired at end of tx. PT Short Term Goals Short Term Goals Time Frame: Jun 04, 2020 Roll Left & Right: 6 Sit to lyin Lying to sitting on side of be: 6 Sit to stand: 4 Chair/pjq-in-fqzwt transfer: 4 Walk 10 feet: 4 Walk 50 feet with two turns: 4 Walk 150 feet: 4 PT Pin Ticket Machine Operator Goals Pin Ticket Machine Operator Goals PT Pin Ticket Machine Operator Goals Time Frame: Jun 18, 2020 Roll Left & Right (QC): 6 Sit to Lying (QC): 6 Lying-Sitting on Side/Bed(QC): 6 Sit to Stand (QC): 5 Chair/Rnq-xc-Fjktf Xfer(QC): 5 Toilet Transfer (QC): 5 Car Transfer (QC): 5 Does the Patient Walk: Yes Walk 10 feet (QC): 5 Walk 50ft with 2 Turns (QC): 5 Walk 150 ft (QC): 5 Walking 10ft on Uneven Surface: 5 1 Step (curb) (QC): 4 4 Steps (QC): 4 12 Steps (QC): 88 Picking up an Object (QC): 4 Wheel 50 feet with 2 turns (QC: 9 Wheel 150 feet: 9 PT Plan Problem List Problem List: Activity Tolerance, Functional Strength, Safety, Balance, Gait, Transfer, ROM Treatment/Plan Treatment Plan: Continue Plan of Care Treatment Plan: Education, Functional Activity Matt, Functional Strength, Group Therapy, Gait, Safety, Therapeutic Exercise, Transfers Treatment Duration: Jun 18, 2020 Frequency: At least 5 of 7 days/Wk (IRF) Estimated Hrs Per Day: 1.5 hours per day Patient and/or Family Agrees t: Yes Safety Risks/Education Patient Education: Gait Training, Transfer Techniques, Correct Positioning, Safety Issues Teaching Recipient: Patient Teaching Methods: Demonstration, Discussion Response to Teaching: Reinforcement Needed Time/GCodes Time In: 1000 Time Out: 1100 Total Billed Treatment Time: 60 Total Billed Treatment 1 visit: FA: 35 Ther Ex: 25 GARY CHE PT May 29, 2020 11:00
[2020-05-29 13:09] VITALS: BP 156/71
[2020-05-29 13:30] VITALS: BP 154/68
[2020-05-29 14:00] VITALS: BP 155/74
--- NOTE | 2020-05-29 14:04 | Occupational Ther Daily Note ---
OT Current Status-Daily Note Subjective Pt laying in bed, receiving blood transfusion. Nurse stated pt okay for therapy at this time. Mental Status/Objective Attachments: IV ADL-Treatment Therapy Code Descriptions/Definitions Functional [place] Measure: 0=Not Assessed/NA 4=Minimal Assistance 1=Total Assistance 5=Supervision or Setup 2=Maximal Assistance 6=Modified [place] 3=Moderate Assistance 7=Complete IndependenceSCALE: Activities may be completed with or without assistive devices. 3-Tuxuhqaxvl-fmzobyz completes the activity by him/herself with no assistance from a helper. 5-Set-up or Clean-up Assistance-helper sets up or cleans up; patient completes activity. [place] assists only prior to or following the activity. 4-Supervision or Touching Assistance-helper provides verbal cues and/or touching/steadying and/or contact guard assistance as patient completes activity. Assistance may be provided throughout the activity or intermittently. 3-Partial/Moderate Assistance-helper does LESS THAN HALF the effort. [place] lifts, holds or supports trunk or limbs, but provides less than half the effort. 2-Substantial/Maximal Assistance-helper does MORE THAN HALF the effort. [place] lifts or holds trunk or limbs and provides more than half the effort. 6-Dxmbzrvae-alpgsd does ALL the effort. Patient does none of the effort to c omplete the activity. Or, the assistance of 2 or more helpers is required for the patient to complete the activity. If activity was not attempted, code reason: 7-Patient Refused. 9-Not Applicable-not attempted and the patient did not perform the activity before the current illness, exacerbation or injury. 10-Not Attempted due to Environmental Limitations-(lack of equipment, weather restraints, etc.). 88-Not Attempted due to Medical Conditions or Safety Concerns. Oral Hygiene (QC): 5 Other Treatment OT tx with focus on increasing fine motor strength/coordination, and activity tolerance. Pt boosted towards HOB, assist x2. HOB elevated, and pt completed minimal resistance theraputty activity, locating beads. Pt has vision deficits, using sense of touch to locate beads, pt able to locate all but 1 bed. She was able to locate the last bead after OT cued pt there was one more to find. Pt then brushed her teeth with set up assistance. Post tx, pt laying in bed, call light in reach and all needs met. Education OT Patient Education: Correct positioning, Exercise program, Modified ADL techniques, Progress toward Goal/Update tx plan, Purpose of tx/functional activities Teaching Recipient: Patient Teaching Methods: Discussion Response to Teaching: Verbalize Understanding OT Short Term Goals Short Term Goals Upper body dressin Lower body dressin OT Fpc Goals Insurance Sales Supervisor Goals Time Frame: Jun 11, 2020 Eating (QC): 6 Oral Hygiene (QC): 6 Toileting Hygiene (QC): 6 Shower/Bathe Self (QC): 6 Upper Body Dressing (QC): 3 Lower Body Dressing (QC): 6 On/Off Footwear (QC): 6 Additional Goals: 1-Demonstrate ADL Tasks, 2-Verbalize Understanding, 3- ImproveStrength/Matt 1=Demonstrate adherence to instructed precautions during ADL tasks. 2=Patient will verbalize/demonstrate understanding of assistive devices/modifications for ADL. 3=Patient will improve strength/tolerance for activity to enable patient to perform ADL's. OT Education/Plan Problem List/Assessment Assessment: Decreased Activ Tolerance, Decreased UE Strength, Impaired I ADL's, Impaired Self-Care Skills Discharge Recommendations Plan/Recommendations: Continue POC Treatment Plan/Plan of Care Patient would benefit from OT for education, treatment and training to promote independence in ADL's, mobility, safety and/or upper extremity function for ADL's. Plan of Care: ADL Retraining, Caregiver Training, Concurrent Therapy, Functional Mobility, Group Exercise/Act as Ind, UE Funct Exercise/Act Treatment Duration: Jun 11, 2020 Frequency: At least 5 of 7 days/Wk (IRF) Estimated Hrs Per Day: 1.5 hours per day Agreement: Yes Rehab Potential: Fair Time/GCodes Start Time: 13:30 Stop Time: 13:45 Total Time Billed (hr/min): 15 Billed Treatment Time 1, TIMOTHY STAFFORD OT May 29, 2020 14:03
--- NOTE | 2020-05-29 15:01 | Physical Therapy Daily Note ---
PT Daily Note-Current Subjective Agrees to PT. No complaints. Reports she is cold. Transfers SCALE: Activities may be completed with or without assistive devices. 3-Xhkmfvlbxj-zmbdewj completes the activity by him/herself with no assistance from a helper. 5-Set-up or Clean-up Assistance-helper sets up or cleans up; patient completes activity. [place] assists only prior to or following the activity. 4-Supervision or Touching Assistance-helper provides verbal cues and/or touching/steadying and/or contact guard assistance as patient completes activity. Assistance may be provided throughout the activity or intermittently. 3-Partial/Moderate Assistance-helper does LESS THAN HALF the effort. [place] lifts, holds or supports trunk or limbs, but provides less than half the effort. 2-Substantial/Maximal Assistance-helper does MORE THAN HALF the effort. [place] lifts or holds trunk or limbs and provides more than half the effort. 1-Mbqlyaokp-phfgyx does ALL the effort. Patient does none of the effort to complete the activity. Or, the assistance of 2 or more helpers is required for the patient to complete the activity. If activity was not attempted, code reason: 7-Patient Refused. 9-Not Applicable-not attempted and the patient did not perform the activity before the current illness, exacerbation or injury. 10-Not Attempted due to Environmental Limitations-(lack of equipment, weather restraints, etc.). 88-Not Attempted due to Medical Conditions or Safety Concerns. Sit to Lying (QC): 4 Lying to Sitting/Side of Bed(Q: 3 (extra time and effort needed; uses bedrail ) Sit to Stand (QC): 4 Toilet Transfer (QC): 4 Gait Training Walk 150 ft (QC): 4 (150 ft x 2; 50 ft x 2 wih FWW with CGA,. ) Gait Assistive Device: FWW Step through gait with foot clearance noted. Treatments Sit to stand transfer 2 x 3 reps with cues for sequencing. Toileted with CGA for transfers and for clothing management; assist with pericare. Pt in bed post treatment with warm blanket and needs met. Assessment Current Status: Good Progress Progressing well; she does have decreased functional activity [place]. PT Short Term Goals Short Term Goals Time Frame: Jun 04, 2020 Roll Left & Right: 6 Sit to lyin Lying to sitting on side of be: 6 Sit to stand: 4 Chair/bcj-yk-goyig transfer: 4 Walk 10 feet: 4 Walk 50 feet with two turns: 4 Walk 150 feet: 4 PT Production Administrator Goals Alf Goals PT Alf Goals Time Frame: Jun 18, 2020 Roll Left & Right (QC): 6 Sit to Lying (QC): 6 Lying-Sitting on Side/Bed(QC): 6 Sit to Stand (QC): 5 Chair/Ksv-zb-Wbhwy Xfer(QC): 5 Toilet Transfer (QC): 5 Car Transfer (QC): 5 Does the Patient Walk: Yes Walk 10 feet (QC): 5 Walk 50ft with 2 Turns (QC): 5 Walk 150 ft (QC): 5 Walking 10ft on Uneven Surface: 5 1 Step (curb) (QC): 4 4 Steps (QC): 4 12 Steps (QC): 88 Picking up an Object (QC): 4 Wheel 50 feet with 2 turns (QC: 9 Wheel 150 feet: 9 PT Plan Problem List Problem List: Activity Tolerance, Functional Strength, Safety, Balance, Gait, Transfer, Bed Mobility Treatment/Plan Treatment Plan: Continue Plan of Care Treatment Plan: Education, Functional Activity Matt, Functional Strength, Group Therapy, Gait, Safety, Therapeutic Exercise, Transfers Treatment Duration: Jun 18, 2020 Frequency: At least 5 of 7 days/Wk (IRF) Estimated Hrs Per Day: 1.5 hours per day Patient and/or Family Agrees t: Yes Safety Risks/Education Patient Education: Transfer Techniques, Safety Issues Teaching Recipient: Patient Teaching Methods: Discussion Response to Teaching: Reinforcement Needed Time/GCodes Time In: 1407 Time Out: 1430 Total Billed Treatment Time: 23 Total Billed Treatment visit GT 15 EX 8 CHRIS SARABIA PT May 29, 2020 15:01
[2020-05-29 16:34] VITALS: BP 161/72
[2020-05-29] MEDS: KCL 10 MEQ TAB (MICRO K) PO SCH (18:26)
[2020-05-29] MEDS: CALCIUM CARB + VIT D 600 MG (CALCARB + D) TAB PO SCH (18:26)
[2020-05-29] MEDS: LATANOPROST 0.005% (XALATAN) OPHTH SOLN 2.5 ML OU SCH (21:03)
[2020-05-29] MEDS: SIMvastatin 10 MG (ZOCOR) TAB PO SCH (21:03)
[2020-05-30 05:35] VITALS: BP 178/76
--- NOTE | 2020-05-30 05:35 | PM&R Progress Note ---
Subjective HPI/CC On Admission Date Seen by Provider: May 30, 2020 Time Seen by Provider: 10:00 Subjective/Events-last exam 05/30/20: Patient doing well BM+ Pain decreased Checked meds and labs Transfusion maintained and feels better Vit B12 tolerated well Iron infusions maintained 05/29/20: Patient doing well Hgb 7.0 so ordered iron infusion and 1 unit of blood due to paleness and fatigue level Received 1 unit of blood at [facility] Albumin 2.7 Improved BP with meds BM++ Midline will be placed Review of Systems General: Fatigue, Malaise Pulmonary: Dyspnea Neurological: Weakness Objective Exam Vital Signs Vital Signs Date Time Temp Pulse Resp B/P (MAP) Pulse Ox O2 Delivery O2 Flow Rate FiO2 05/31/20 08:00 Room Air 05/31/20 05:08 36.4 81 19 146/69 (94) 95 Capillary Refill : General Appearance: No Apparent Distress, WD/WN, Chronically ill, Other (pale) HEENT: PERRL/EOMI, Normal ENT Inspection, Pharynx Normal Neck: Full Range of Motion, Normal Inspection, Non Tender, Supple, Carotid Bruit Respiratory: Chest Non Tender, Lungs Clear, Normal Breath Sounds, No Accessory Muscle Use, No Respiratory Distress Cardiovascular: Regular Rate, Rhythm, No Edema, No Gallop, No JVD, No Murmur, Normal Peripheral Pulses Gastrointestinal: Normal Bowel Sounds, No Organomegaly, No Pulsatile Mass, Non Tender, Soft Back: Normal Inspection, No CVA Tenderness, No Vertebral Tenderness Extremity: Normal Capillary Refill, Normal Inspection, Normal Range of Motion, Non Tender, No Calf Tenderness, No Pedal Edema Neurologic/Psychiatric: Alert, Oriented x3, Normal Mood/Affect, canvassing manager II-XII Norm as Tested, Abnormal Gait, Motor Weakness (generalized weakness 3/5 extremities) Skin: Normal Color, Warm/Dry Lymphatic: No Adenopathy Results/Procedures Lab Patient resulted labs reviewed. FIM Transfers Therapy Code Descriptions/Definitions Functional [place] Measure: 0=Not Assessed/NA 4=Minimal Assistance 1=Total Assistance 5=Supervision or Setup 2=Maximal Assistance 6=Modified [place] 3=Moderate Assistance 7=Complete IndependenceSCALE: Activities may be completed with or without assistive devices. 7-Qezdfwdupy-izcjhvf completes the activity by him/herself with no assistance f rom a helper. 5-Set-up or Clean-up Assistance-helper sets up or cleans up; patient completes activity. [place] assists only prior to or following the activity. 4-Supervision or Touching Assistance-helper provides verbal cues and/or touching/steadying and/or contact guard assistance as patient completes activity. Assistance may be provided throughout the activity or intermittently. 3-Partial/Moderate Assistance-helper does LESS THAN HALF the effort. [place] lifts, holds or supports trunk or limbs, but provides less than half the effort. 2-Substantial/Maximal Assistance-helper does MORE THAN HALF the effort. [place] lifts or holds trunk or limbs and provides more than half the effort. 9-Qcbyhslxr-nkxybb does ALL the effort. Patient does none of the effort to complete the activity. Or, the assistance of 2 or more helpers is required for the patient to complete the activity. If activity was not attempted, code reason: 7-Patient Refused. 9-Not Applicable-not attempted and the patient did not perform the activity before the current illness, exacerbation or injury. 10-Not Attempted due to Environmental Limitations-(lack of equipment, weather restraints, etc.). 88-Not Attempted due to Medical Conditions or Safety Concerns. Roll Left to Right (QC): 6 Sit to Lying (QC): 4 Sit to Stand (QC): 4 Chair/Qyw-ok-Sitty Xfer(QC): 4 Car Transfer (QC): 4 Gait Training Does the Patient Walk?: Yes Distance: 30' x2 ; 120' Walk 10 feet (QC): 4 Walk 50 ft with 2 Turns(QC): 4 Walk 150 ft (QC): 4 (150 ft x 2; 50 ft x 2 wih FWW with CGA,. ) Walking 10ft/uneven surface-QC: 4 Gait Persons Needed: 1 Gait Assistive Device: FWW Wheelchair Training Does the Pt Use a Wheelchair?: No Wheel 50 ft with 2 turns (QC): 9 Wheel 150 ft (QC): 9 Stair Training #of Steps: 1 1 Step (curb) (QC): 4 4 Steps (QC): 88 12 Steps (QC): 88 Balance Picking up an Object (QC): 4 ADL-Treatment Eating (QC): 5 (s/u at times per pt. Though use of L hand for cutting/ scooping/ feeding) Oral Hygiene (QC): 5 Shower/Bathe Self (QC): 3 (Assist BLE lower legs/feet, buttocks, and L armpit. Pt able to wash other parts seated at recliner.) Upper Body Dressing (QC): 3 (Pt required assistance doffing pullover shirt from RUE, pt able to don.) Lower Body Dressing (QC): 3 (Pt threaded RLE, assist to thread LLE, pt then completed pant hike with CGA.) On/Off Footwear (QC): 6 (Did not complete socks prior. Able to don shoes (slip ons) with IND.) Toileting Hygiene (QC): 3 (Pt performed clothing management, and hygiene of periarea. 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
[2020-05-30 05:53] LABS: BASOPHILS # (AUTO) 0.1 10^3/uL (0.0-0.1); BASOPHILS % (AUTO) 1 % (0-10); EOSINOPHILS # (AUTO) 0.3 10^3/uL (0.0-0.3); EOSINOPHILS % (AUTO) 3 % (0-10); HEMATOCRIT 29 % (35-52); HEMOGLOBIN 8.9 g/dL (11.5-16.0); LYMPHOCYTES % (AUTO) 21 % (12-44); MEAN CORPUSCULAR HGB CONC 31 g/dL (32-36); MEAN CORPUSCULAR VOLUME 88 fL (80-99); MEAN PLATELET VOLUME 9.6 fL (9.0-12.2); MONOCYTES # (AUTO) 1.1 10^3/uL (0.0-1.0); MONOCYTES % (AUTO) 11 % (0-12); NEUTROPHILS # (AUTO) 5.8 10^3/uL (1.8-7.8); NEUTROPHILS % (AUTO) 61 % (42-75); PLATELET COUNT 271 10^3/uL (130-400); WHITE BLOOD COUNT 9.5 10^3/uL (4.3-11.0)
[2020-05-30 05:55] LABS: MEAN CORPUSCULAR HEMOGLOBIN 27 pg (25-34)
[2020-05-30] MEDS: MULTIVIT W/MINERALS TAB (THERAGRAN M) PO SCH (06:03)
[2020-05-30 06:16] LABS: ALBUMIN 2.8 GM/DL (3.2-4.5); BILIRUBIN,TOTAL 0.5 MG/DL (0.1-1.0); CALCIUM 8.1 MG/DL (8.5-10.1); CREATININE SERUM 0.98 MG/DL (0.60-1.30); POTASSIUM 3.4 MMOL/L (3.6-5.0); TOTAL PROTEIN 5.6 GM/DL (6.4-8.2)
[2020-05-30] MEDS: KCL 10 MEQ TAB (MICRO K) PO SCH ×2 (08:46→18:01)
[2020-05-30] MEDS: FERROUS SULF 325 MG (IRON) TAB PO SCH (08:46)
[2020-05-30] MEDS: PREGABALIN 75 MG (LYRICA) CAP PO SCH ×2 (08:47→20:14)
[2020-05-30] MEDS: ACETAMINOPHEN 500 MG TAB (TYLENOL) PO SCH ×3 (08:47→20:14)
[2020-05-30] MEDS: PANTOPRAZOLE 20 MG TABLET (PROTONIX) PO SCH (08:47)
[2020-05-30] MEDS: hydrALAZINE (APRESOLINE) 25 MG TAB PO SCH ×3 (08:47→20:14)
[2020-05-30] MEDS: polyethylene glycoL POWDER 17 GM (MIRALAX) PACK PO SCH ×2 (08:47→19:30)
[2020-05-30] MEDS: OMEGA 3 (FISH OIL) 1000 MG CAP PO SCH ×2 (08:47→18:00)
[2020-05-30] MEDS: meTOprolol TARTRATE 25 MG (LOPRESSOR) TABLET PO SCH ×2 (08:47→20:14)
[2020-05-30] MEDS: DOCUSATE SODIUM 100 MG (COLACE) CAP PO SCH ×2 (08:47→19:30)
[2020-05-30] MEDS: TOLTERODINE LA 4 MG (DETROL) CAP PO SCH (08:47)
[2020-05-30] MEDS: amLODIPine 5 MG (NORVASC) TAB PO SCH (08:47)
[2020-05-30] MEDS: SENNA W/DOCUSATE (SENOKOT S) TABLET PO SCH ×2 (08:48→19:30)
[2020-05-30] MEDS: DULoxetine 30 MG (CYMBALTA) CAP PO SCH (08:49)
--- NOTE | 2020-05-30 09:01 | Physical Therapy Daily Note ---
PT Daily Note-Current Subjective Pt. up in chair, agrees to Rx, states she is stronger everyday and is very motivated to get home to her of many years Pain Location: No Pain Reported Mental Status Patient Orientation: Normal For Age Attachments: Other-See Comments (mask) Transfers SCALE: Activities may be completed with or without assistive devices. 4-Erwbpukcoa-kxzhlph completes the activity by him/herself with no assistance from a helper. 5-Set-up or Clean-up Assistance-helper sets up or cleans up; patient completes activity. [place] assists only prior to or following the activity. 4-Supervision or Touching Assistance-helper provides verbal cues and/or touching/steadying and/or contact guard assistance as patient completes activity. Assistance may be provided throughout the activity or intermittently. 3-Partial/Moderate Assistance-helper does LESS THAN HALF the effort. [place] lifts, holds or supports trunk or limbs, but provides less than half the effort. 2-Substantial/Maximal Assistance-helper does MORE THAN HALF the effort. [place] lifts or holds trunk or limbs and provides more than half the effort. 9-Wnxlxcgkv-vncpfc does ALL the effort. Patient does none of the effort to complete the activity. Or, the assistance of 2 or more helpers is required for the patient to complete the activity. If activity was not attempted, code reason: 7-Patient Refused. 9-Not Applicable-not attempted and the patient did not perform the activity before the current illness, exacerbation or injury. 10-Not Attempted due to Environmental Limitations-(lack of equipment, weather restraints, etc.). 88-Not Attempted due to Medical Conditions or Safety Concerns. Roll Left & Right (QC): 6 Sit to Lying (QC): 5 Lying to Sitting/Side of Bed(Q: 5 Sit to Stand (QC): 5 Chair/Hzd-lo-Vtida Xfer(QC): 5 Gait Training Does the Patient Walk?: Yes Walk 10 feet (QC): 5 Walk 50 ft with 2 Turns(QC): 5 Walk 150 ft (QC): 5 Gait Persons Needed: 1 Gait Assistive Device: FWW Exercises Supine Ex: Bridging, Ankle pumps, Quad Set, Rolling, Glut sets, Lower trunk rotation, Heel Slides, Short Arc Quads, Scooting, Straight leg raise, Hip abd/add Supine Reps: 15 Seated Therapy Exercises: Ankle pumps, Sit to stand, Long arc quads, Hip flexion, Hip abd/add Seated Reps: 12 NuStep Minutes: 8 NuStep Workload: 3 Assessment Current Status: Good Progress PT Short Term Goals Short Term Goals Time Frame: Jun 04, 2020 Roll Left & Right: 6 Sit to lyin Lying to sitting on side of be: 6 Sit to stand: 4 Chair/tll-mr-nieia transfer: 4 Walk 10 feet: 4 Walk 50 feet with two turns: 4 Walk 150 feet: 4 PT Mcfp Goals Flask Cleaner Goals PT Flask Cleaner Goals Time Frame: Jun 18, 2020 Roll Left & Right (QC): 6 Sit to Lying (QC): 6 Lying-Sitting on Side/Bed(QC): 6 Sit to Stand (QC): 5 Chair/Hhu-az-Beqqr Xfer(QC): 5 Toilet Transfer (QC): 5 Car Transfer (QC): 5 Does the Patient Walk: Yes Walk 10 feet (QC): 5 Walk 50ft with 2 Turns (QC): 5 Walk 150 ft (QC): 5 Walking 10ft on Uneven Surface: 5 1 Step (curb) (QC): 4 4 Steps (QC): 4 12 Steps (QC): 88 Picking up an Object (QC): 4 Wheel 50 feet with 2 turns (QC: 9 Wheel 150 feet: 9 PT Plan Treatment/Plan Treatment Plan: Continue Plan of Care Treatment Plan: Education, Functional Activity Matt, Functional Strength, Group Therapy, Gait, Safety, Therapeutic Exercise, Transfers Treatment Duration: Jun 18, 2020 Frequency: At least 5 of 7 days/Wk (IRF) Estimated Hrs Per Day: 1.5 hours per day Patient and/or Family Agrees t: Yes Safety Risks/Education Patient Education: Gait Training, Transfer Techniques, Correct Positioning, Disease Process, Safety Issues Teaching Recipient: Patient Teaching Methods: Demonstration, Discussion Response to Teaching: Verbalize Understanding, Return Demonstration, Reinforcement Needed Time/GCodes Time In: 800 Time Out: 900 Total Billed Treatment Time: 60 Total Billed Treatment 1,EX35m,GT15m,FA10m MIKE HOLLIDAY SWITCH OPERATORS SUPERVISOR May 30, 2020 09:01
--- NOTE | 2020-05-30 10:22 | Occupational Ther Daily Note ---
OT Current Status-Daily Note Subjective Pt seated in recliner, agreeable to OT Tx. Pt reports fatigue, but agreeable to showering. ADL-Treatment Therapy Code Descriptions/Definitions Functional [place] Measure: 0=Not Assessed/NA 4=Minimal Assistance 1=Total Assistance 5=Supervision or Setup 2=Maximal Assistance 6=Modified [place] 3=Moderate Assistance 7=Complete IndependenceSCALE: Activities may be completed with or without assistive devices. 5-Dpnwthlpnj-killvdf completes the activity by him/herself with no assistance from a helper. 5-Set-up or Clean-up Assistance-helper sets up or cleans up; patient completes activity. [place] assists only prior to or following the activity. 4-Supervision or Touching Assistance-helper provides verbal cues and/or touching/steadying and/or contact guard assistance as patient completes activity. Assistance may be provided throughout the activity or intermittently. 3-Partial/Moderate Assistance-helper does LESS THAN HALF the effort. [place] lifts, holds or supports trunk or limbs, but provides less than half the effort. 2-Substantial/Maximal Assistance-helper does MORE THAN HALF the effort. [place] lifts or holds trunk or limbs and provides more than half the effort. 2-Rccnzptvq-zdiklp does ALL the effort. Patient does none of the effort to complete the activity. Or, the assistance of 2 or more helpers is required for the patient to complete the activity. If activity was not attempted, code reason: 7-Patient Refused. 9-Not Applicable-not attempted and the patient did not perform the activity before the current illness, exacerbation or injury. 10-Not Attempted due to Environmental Limitations-(lack of equipment, weather restraints, etc.). 88-Not Attempted due to Medical Conditions or Safety Concerns. Oral Hygiene (QC): 6 (IND seated in recliner.) Bathing Location: L Arm, R Arm, L Upper Leg, R Upper Leg, L Lower Leg (including foot), R Lower Leg (including foot), Chest, Abdomen, Buttocks, Perineal Area Shower/Bathe Self (QC): 4 (Pt able to wash/dry all parts, CGA in stand at GBs for pericare and washing buttocks.) Upper Body Dressing (QC): 3 (Pt required min A doffing black puller shirt from RUE. Slight assist to clasp bra, then able to don bra and black puller shirt.) Lower Body Dressing (QC): 3 (Min A threading brief, pt able to thread pants and perform pant hike.) On/Off Footwear: 2 (Pt able to doff LLE socks, slight assist with R. OT assisted pt with donning gripper socks due to fatigue.) Toileting Hygiene (QC): 3 (Pt able to manage clothing, CGA. Assist wtih hygiene.) Toilet Transfer (QC): 4 (CGA on/off toilet.) Other Treatment Pt seated in recliner, used FWW to ambulate to bathroom and onto toilet, CGA. Pt completed toileting, then used FWW to transfer to SC. Pt completed showering, OT educated pt on using long handled spogne to wash LEs and back. She then transferred to chair to don clothes. Pt required frequent rest breaks during tx due to fatigue. Pt sat at sink to complete oral care and hair brushing, then used FWW to return to recliner. Post tx, pt seated in recliner, call light in reach and all needs met. Education OT Patient Education: Correct positioning, Energy conservation, Modified ADL techniques, Progress toward Goal/Update tx plan, Purpose of tx/functional activities, Use of adapted equipment Teaching Recipient: Patient Teaching Methods: Discussion Response to Teaching: Verbalize Understanding OT Short Term Goals Short Term Goals Upper body dressin Lower body dressin OT Senior Care Goals Programming Intern Goals Time Frame: Jun 11, 2020 Eating (QC): 6 Oral Hygiene (QC): 6 Toileting Hygiene (QC): 6 Shower/Bathe Self (QC): 6 Upper Body Dressing (QC): 3 Lower Body Dressing (QC): 6 On/Off Footwear (QC): 6 Additional Goals: 1-Demonstrate ADL Tasks, 2-Verbalize Understanding, 3- ImproveStrength/Matt 1=Demonstrate adherence to instructed precautions during ADL tasks. 2=Patient will verbalize/demonstrate understanding of assistive devices/modifications for ADL. 3=Patient will improve strength/tolerance for activity to enable patient to perform ADL's. OT Education/Plan Problem List/Assessment Assessment: Decreased Activ Tolerance, Decreased UE Strength, Impaired Funct Balance, Impaired I ADL's, Impaired Self-Care Skills, Restricted Funct UE ROM Discharge Recommendations Plan/Recommendations: Continue POC Treatment Plan/Plan of Care Patient would benefit from OT for education, treatment and training to promote independence in ADL's, mobility, safety and/or upper extremity function for ADL's. Plan of Care: ADL Retraining, Caregiver Training, Concurrent Therapy, Functional Mobility, Group Exercise/Act as Ind, UE Funct Exercise/Act Treatment Duration: Jun 11, 2020 Frequency: At least 5 of 7 days/Wk (IRF) Estimated Hrs Per Day: 1.5 hours per day Agreement: Yes Rehab Potential: Fair Time/GCodes Start Time: 09:15 Stop Time: 10:15 Total Time Billed (hr/min): 60 Billed Treatment Time 1, ADL 4 TIMOTHY BAKER OT May 30, 2020 10:22
--- NOTE | 2020-05-30 11:36 | Occupational Ther Daily Note ---
OT Current Status-Daily Note Subjective Pt seated in recliner, agreeable to OT tx. ADL-Treatment Therapy Code Descriptions/Definitions Functional [place] Measure: 0=Not Assessed/NA 4=Minimal Assistance 1=Total Assistance 5=Supervision or Setup 2=Maximal Assistance 6=Modified [place] 3=Moderate Assistance 7=Complete IndependenceSCALE: Activities may be completed with or without assistive devices. 7-Ybxnhpyvgj-wdezpby completes the activity by him/herself with no assistance from a helper. 5-Set-up or Clean-up Assistance-helper sets up or cleans up; patient completes activity. [place] assists only prior to or following the activity. 4-Supervision or Touching Assistance-helper provides verbal cues and/or touching/steadying and/or contact guard assistance as patient completes activity. Assistance may be provided throughout the activity or intermittently. 3-Partial/Moderate Assistance-helper does LESS THAN HALF the effort. [place] lifts, holds or supports trunk or limbs, but provides less than half the effort. 2-Substantial/Maximal Assistance-helper does MORE THAN HALF the effort. [place] lifts or holds trunk or limbs and provides more than half the effort. 5-Ezdavwexr-mmjauh does ALL the effort. Patient does none of the effort to complete the activity. Or, the assistance of 2 or more helpers is required for the patient to complete the activity. If activity was not attempted, code reason: 7-Patient Refused. 9-Not Applicable-not attempted and the patient did not perform the activity before the current illness, exacerbation or injury. 10-Not Attempted due to Environmental Limitations-(lack of equipment, weather restraints, etc.). 88-Not Attempted due to Medical Conditions or Safety Concerns. On/Off Footwear: 3 (Mod A with education of AE ) Other Treatment Pt seated in recliner. OT educated pt on AE for footwear, pt able to doff gripper socks with dressing stick. OT then demonstrated how to use sock aide, donning sock onto sock aide for pt. Pt then able to don R sock with verbal instruction. OT handed pt sock aide and other sock, she was able to don sock onto sock aide, min A with orientation, then pt able to don sock onto L foot. AE left in pt's room. In order to increase fine motor strength and coordination, pt completed fine motor task with moderate resistance theraputty, removing beads. Pt able to locate and remove x14 beads, required verbal cue to locate last bead. Post tx, pt seated in recliner, call light in reach and all needs met. Education OT Patient Education: Correct positioning, Exercise program, Modified ADL techniques, Progress toward Goal/Update tx plan, Purpose of tx/functional activities Teaching Recipient: Patient Teaching Methods: Discussion Response to Teaching: Verbalize Understanding OT Short Term Goals Short Term Goals Upper body dressin Lower body dressin OT Senior Director Insight Goals Senior Director Insight Goals Time Frame: Jun 11, 2020 Eating (QC): 6 Oral Hygiene (QC): 6 Toileting Hygiene (QC): 6 Shower/Bathe Self (QC): 6 Upper Body Dressing (QC): 3 Lower Body Dressing (QC): 6 On/Off Footwear (QC): 6 Additional Goals: 1-Demonstrate ADL Tasks, 2-Verbalize Understanding, 3- ImproveStrength/Matt 1=Demonstrate adherence to instructed precautions during ADL tasks. 2=Patient will verbalize/demonstrate understanding of assistive devices/modifications for ADL. 3=Patient will improve strength/tolerance for activity to enable patient to perform ADL's. OT Education/Plan Problem List/Assessment Assessment: Decreased Activ Tolerance, Decreased UE Strength, Impaired I ADL's, Impaired Self-Care Skills Discharge Recommendations Plan/Recommendations: Continue POC Treatment Plan/Plan of Care Patient would benefit from OT for education, treatment and training to promote independence in ADL's, mobility, safety and/or upper extremity function for ADL's. Plan of Care: ADL Retraining, Caregiver Training, Concurrent Therapy, Func tional Mobility, Group Exercise/Act as Ind, UE Funct Exercise/Act Treatment Duration: Jun 11, 2020 Frequency: At least 5 of 7 days/Wk (IRF) Estimated Hrs Per Day: 1.5 hours per day Agreement: Yes Rehab Potential: Fair Time/GCodes Start Time: 11:00 Stop Time: 11:30 Total Time Billed (hr/min): 30 Billed Treatment Time 1, ADL (15'), FA (15') TIMOTHY BAKER OT May 30, 2020 11:36
[2020-05-30 13:40] VITALS: BP 132/82
--- NOTE | 2020-05-30 13:55 | Physical Therapy Daily Note ---
PT Daily Note-Current Subjective Pt. agrees to Rx. Wants in bed to visit with family after Rx Pain Location: No Pain Reported Mental Status Patient Orientation: Normal For Age Transfers SCALE: Activities may be completed with or without assistive devices. 8-Ysqpuedlfb-xvkssyc completes the activity by him/herself with no assistance from a helper. 5-Set-up or Clean-up Assistance-helper sets up or cleans up; patient completes activity. [place] assists only prior to or following the activity. 4-Supervision or Touching Assistance-helper provides verbal cues and/or touching/steadying and/or contact guard assistance as patient completes activity. Assistance may be provided throughout the activity or intermittently. 3-Partial/Moderate Assistance-helper does LESS THAN HALF the effort. [place] lifts, holds or supports trunk or limbs, but provides less than half the effort. 2-Substantial/Maximal Assistance-helper does MORE THAN HALF the effort. [place] lifts or holds trunk or limbs and provides more than half the effort. 4-Zeoiembxf-qciksp does ALL the effort. Patient does none of the effort to complete the activity. Or, the assistance of 2 or more helpers is required for the patient to complete the activity. If activity was not attempted, code reason: 7-Patient Refused. 9-Not Applicable-not attempted and the patient did not perform the activity before the current illness, exacerbation or injury. 10-Not Attempted due to Environmental Limitations-(lack of equipment, weather restraints, etc.). 88-Not Attempted due to Medical Conditions or Safety Concerns. in out bed, chair and toilet min to CGA Gait Training Does the Patient Walk?: Yes Gait Assistive Device: FWW 150ft, 75 ft x 2 CGA slow, FWW Exercises Seated Therapy Exercises: Ankle pumps, Sit to stand, Long arc quads, Hip flexion, Hip abd/add Seated Reps: 12 Treatments toileted with mod to max assist to change brief and clean up. washed hands at sink with CGA Assessment Current Status: Good Progress fatigued, requested to go to bed after Rx, call garcia and family at side PT Short Term Goals Short Term Goals Time Frame: Jun 04, 2020 Roll Left & Right: 6 Sit to lyin Lying to sitting on side of be: 6 Sit to stand: 4 Chair/kgb-rh-jbplz transfer: 4 Walk 10 feet: 4 Walk 50 feet with two turns: 4 Walk 150 feet: 4 PT Department Clerk Goals Snf Goals PT Department Clerk Goals Time Frame: Jun 18, 2020 Roll Left & Right (QC): 6 Sit to Lying (QC): 6 Lying-Sitting on Side/Bed(QC): 6 Sit to Stand (QC): 5 Chair/Iiq-am-Xkfee Xfer(QC): 5 Toilet Transfer (QC): 5 Car Transfer (QC): 5 Does the Patient Walk: Yes Walk 10 feet (QC): 5 Walk 50ft with 2 Turns (QC): 5 Walk 150 ft (QC): 5 Walking 10ft on Uneven Surface: 5 1 Step (curb) (QC): 4 4 Steps (QC): 4 12 Steps (QC): 88 Picking up an Object (QC): 4 Wheel 50 feet with 2 turns (QC: 9 Wheel 150 feet: 9 PT Plan Treatment/Plan Treatment Plan: Continue Plan of Care Treatment Plan: Education, Functional Activity Matt, Functional Strength, Group Therapy, Gait, Safety, Therapeutic Exercise, Transfers Treatment Duration: Jun 18, 2020 Frequency: At least 5 of 7 days/Wk (IRF) Estimated Hrs Per Day: 1.5 hours per day Patient and/or Family Agrees t: Yes Safety Risks/Education Patient Education: Gait Training, Transfer Techniques, Correct Positioning, Safety Issues Time/GCodes Time In: 1325 Time Out: 1355 Total Billed Treatment Time: 30 Total Billed Treatment 1,FA15m,GT15m MIKE HOLLIDAY TESTER EQUIPMENT May 30, 2020 13:55
[2020-05-30 17:56] VITALS: BP 147/68
[2020-05-30] MEDS: CALCIUM CARB + VIT D 600 MG (CALCARB + D) TAB PO SCH (18:00)
[2020-05-30] MEDS: SIMvastatin 10 MG (ZOCOR) TAB PO SCH (20:14)
[2020-05-30] MEDS: LATANOPROST 0.005% (XALATAN) OPHTH SOLN 2.5 ML OU SCH (20:15)
[2020-05-31 05:08] VITALS: BP 146/69
[2020-05-31] MEDS: MULTIVIT W/MINERALS TAB (THERAGRAN M) PO SCH (06:15)
[2020-05-31] MEDS: DULoxetine 30 MG (CYMBALTA) CAP PO SCH (07:35)
[2020-05-31] MEDS: PANTOPRAZOLE 20 MG TABLET (PROTONIX) PO SCH (07:36)
[2020-05-31] MEDS: PREGABALIN 75 MG (LYRICA) CAP PO SCH ×2 (07:36→20:47)
[2020-05-31] MEDS: KCL 10 MEQ TAB (MICRO K) PO SCH ×2 (07:36→17:23)
[2020-05-31] MEDS: TOLTERODINE LA 4 MG (DETROL) CAP PO SCH (07:36)
[2020-05-31] MEDS: hydrALAZINE (APRESOLINE) 25 MG TAB PO SCH ×3 (07:36→20:47)
[2020-05-31] MEDS: SENNA W/DOCUSATE (SENOKOT S) TABLET PO SCH ×2 (07:37→20:47)
[2020-05-31] MEDS: OMEGA 3 (FISH OIL) 1000 MG CAP PO SCH (07:37)
[2020-05-31] MEDS: meTOprolol TARTRATE 25 MG (LOPRESSOR) TABLET PO SCH ×2 (07:37→20:47)
[2020-05-31] MEDS: amLODIPine 5 MG (NORVASC) TAB PO SCH (07:38)
[2020-05-31] MEDS: FERROUS SULF 325 MG (IRON) TAB PO SCH (07:38)
[2020-05-31] MEDS: DOCUSATE SODIUM 100 MG (COLACE) CAP PO SCH ×2 (07:43→20:48)
[2020-05-31] MEDS: ACETAMINOPHEN 500 MG TAB (TYLENOL) PO SCH ×3 (07:43→20:48)
[2020-05-31] MEDS: IRON SUCROSE 200 MG/10 ML (VENOFER) VIAL IV SCH (08:04)
[2020-05-31] MEDS: polyethylene glycoL POWDER 17 GM (MIRALAX) PACK PO SCH ×2 (08:08→20:47)
--- NOTE | 2020-05-31 10:29 | Physical Therapy Daily Note ---
PT Daily Note-Current Subjective Pt. agrees to Rx, wants to get up, toilet , dress and walk Pain Location: No Pain Reported Mental Status Patient Orientation: Normal For Age Attachments: Other-See Comments (mask) Transfers SCALE: Activities may be completed with or without assistive devices. 3-Ouxpawihov-yuqedbk completes the activity by him/herself with no assistance from a helper. 5-Set-up or Clean-up Assistance-helper sets up or cleans up; patient completes activity. [place] assists only prior to or following the activity. 4-Supervision or Touching Assistance-helper provides verbal cues and/or touching/steadying and/or contact guard assistance as patient completes activity. Assistance may be provided throughout the activity or intermittently. 3-Partial/Moderate Assistance-helper does LESS THAN HALF the effort. [place] lifts, holds or supports trunk or limbs, but provides less than half the effort. 2-Substantial/Maximal Assistance-helper does MORE THAN HALF the effort. [place] lifts or holds trunk or limbs and provides more than half the effort. 6-Hrdainkfw-kmqvmx does ALL the effort. Patient does none of the effort to complete the activity. Or, the assistance of 2 or more helpers is required for the patient to complete the activity. If activity was not attempted, code reason: 7-Patient Refused. 9-Not Applicable-not attempted and the patient did not perform the activity before the current illness, exacerbation or injury. 10-Not Attempted due to Environmental Limitations-(lack of equipment, weather restraints, etc.). 88-Not Attempted due to Medical Conditions or Safety Concerns. Roll Left & Right (QC): 6 Sit to Lying (QC): 6 Lying to Sitting/Side of Bed(Q: 6 Sit to Stand (QC): 5 Chair/Asf-gw-Vdnys Xfer(QC): 5 Toilet Transfer (QC): 5 Gait Training Does the Patient Walk?: Yes Walk 150 ft (QC): 4 Gait Persons Needed: 1 Gait Assistive Device: FWW slow, uneven step length, narrow VAL with crossovers at times Exercises Supine Ex: Ankle pumps, Quad Set, Rolling, Glut sets, Heel Slides, Short Arc Quads, Scooting, Straight leg raise, Hip abd/add Supine Reps: 15 Treatments Pt. required min assist for toilet TRF and mod assist for donning and doffing brief as well as U&L clothing. Pt did clean herself and wash hands at sink indep Assessment Current Status: Good Progress PT Short Term Goals Short Term Goals Time Frame: Jun 04, 2020 Roll Left & Right: 6 Sit to lyin Lying to sitting on side of be: 6 Sit to stand: 4 Chair/blm-bp-tnrhm transfer: 4 Walk 10 feet: 4 Walk 50 feet with two turns: 4 Walk 150 feet: 4 PT Apparel Embroidery Digitizer Goals Detention Goals PT Detention Goals Time Frame: Jun 18, 2020 Roll Left & Right (QC): 6 Sit to Lying (QC): 6 Lying-Sitting on Side/Bed(QC): 6 Sit to Stand (QC): 5 Chair/Kqv-gp-Acjug Xfer(QC): 5 Toilet Transfer (QC): 5 Car Transfer (QC): 5 Does the Patient Walk: Yes Walk 10 feet (QC): 5 Walk 50ft with 2 Turns (QC): 5 Walk 150 ft (QC): 5 Walking 10ft on Uneven Surface: 5 1 Step (curb) (QC): 4 4 Steps (QC): 4 12 Steps (QC): 88 Picking up an Object (QC): 4 Wheel 50 feet with 2 turns (QC: 9 Wheel 150 feet: 9 PT Plan Treatment/Plan Treatment Plan: Continue Plan of Care Treatment Plan: Education, Functional Activity Matt, Functional Strength, Group Therapy, Gait, Safety, Therapeutic Exercise, Transfers Treatment Duration: Jun 18, 2020 Frequency: At least 5 of 7 days/Wk (IRF) Estimated Hrs Per Day: 1.5 hours per day Patient and/or Family Agrees t: Yes Safety Risks/Education Patient Education: Gait Training, Transfer Techniques, Correct Positioning, Disease Process, Safety Issues Teaching Recipient: Patient Teaching Methods: Demonstration, Discussion Response to Teaching: Verbalize Understanding, Return Demonstration, Reinforcement Needed Time/GCodes Time In: 945 Time Out: 1015 Total Billed Treatment Time: 30 Total Billed Treatment 1,EX15m,GT15m MIKE HOLLIDAY SIGNAL SUPERVISOR May 31, 2020 10:29
--- NOTE | 2020-05-31 11:01 | PM&R Progress Note ---
Subjective HPI/CC On Admission Date Seen by Provider: May 31, 2020 Time Seen by Provider: 10:00 Subjective/Events-last exam 05/31/20: Patient doing well [place] look ok Moving well No pain reported BM 05/3105/30/20: Patient doing well BM+ Pain decreased Checked meds and labs Transfusion maintained and feels better Vit B12 tolerated well Iron infusions maintained 05/29/20: Patient doing well Hgb 7.0 so ordered iron infusion and 1 unit of blood due to paleness and fatigue level Received 1 unit of blood at [facility] Albumin 2.7 Improved BP with meds BM++ Midline will be placed Review of Systems General: Fatigue, Malaise Pulmonary: Dyspnea Objective Exam Vital Signs Vital Signs Date Time Temp Pulse Resp B/P (MAP) Pulse Ox O2 Delivery O2 Flow Rate FiO2 06/01/20 08:00 Room Air 06/01/20 06:06 37.0 84 18 157/78 (104) 93 Capillary Refill : General Appearance: No Apparent Distress, WD/WN, Chronically ill, Other (pale) HEENT: PERRL/EOMI, Normal ENT Inspection, Pharynx Normal Neck: Full Range of Motion, Normal Inspection, Non Tender, Supple, Carotid Bruit Respiratory: Chest Non Tender, Lungs Clear, Normal Breath Sounds, No Accessory Muscle Use, No Respiratory Distress Cardiovascular: Regular Rate, Rhythm, No Edema, No Gallop, No JVD, No Murmur, Normal Peripheral Pulses Gastrointestinal: Normal Bowel Sounds, No Organomegaly, No Pulsatile Mass, Non Tender, Soft Back: Normal Inspection, No CVA Tenderness, No Vertebral Tenderness Extremity: Normal Capillary Refill, Normal Inspection, Normal Range of Motion, Non Tender, No Calf Tenderness, No Pedal Edema Neurologic/Psychiatric: Alert, Oriented x3, Normal Mood/Affect, cement finisher II-XII Norm as Tested, Abnormal Gait, Motor Weakness (generalized weakness 3/5 extremities) Skin: Normal Color, Warm/Dry Lymphatic: No Adenopathy Results/Procedures Lab Patient resulted labs reviewed. FIM Transfers Therapy Code Descriptions/Definitions Functional [place] Measure: 0=Not Assessed/NA 4=Minimal Assistance 1=Total Assistance 5=Supervision or Setup 2=Maximal Assistance 6=Modified [place] 3=Moderate Assistance 7=Complete IndependenceSCALE: Activities may be completed with or without assistive devices. 4-Jtmctbsatd-wdkiriw completes the activity by him/herself with no assistance from a helper. 5-Set-up or Clean-up Assistance-helper sets up or cleans up; patient completes activity. [place] assists only prior to or following the activity. 4-Supervision or Touching Assistance-helper provides verbal cues and/or touching/steadying and/or contact guard assistance as patient completes activity. Assistance may be provided throughout the activity or intermittently. 3-Partial/Moderate Assistance-helper does LESS THAN HALF the effort. [place] l ifts, holds or supports trunk or limbs, but provides less than half the effort. 2-Substantial/Maximal Assistance-helper does MORE THAN HALF the effort. [place] lifts or holds trunk or limbs and provides more than half the effort. 2-Ddjwquksa-vysfjm does ALL the effort. Patient does none of the effort to complete the activity. Or, the assistance of 2 or more helpers is required for t he patient to complete the activity. If activity was not attempted, code reason: 7-Patient Refused. 9-Not Applicable-not attempted and the patient did not perform the activity before the current illness, exacerbation or injury. 10-Not Attempted due to Environmental Limitations-(lack of equipment, weather restraints, etc.). 88-Not Attempted due to Medical Conditions or Safety Concerns. Roll Left to Right (QC): 6 Sit to Lying (QC): 6 Sit to Stand (QC): 5 Chair/Owx-bd-Hajfy Xfer(QC): 5 Car Transfer (QC): 4 Gait Training Does the Patient Walk?: Yes Distance: 30' x2 ; 120' Walk 10 feet (QC): 5 Walk 50 ft with 2 Turns(QC): 5 Walk 150 ft (QC): 4 Walking 10ft/uneven surface-QC: 4 Gait Persons Needed: 1 Gait Assistive Device: FWW Wheelchair Training Does the Pt Use a Wheelchair?: No Wheel 50 ft with 2 turns (QC): 9 Wheel 150 ft (QC): 9 Stair Training #of Steps: 1 1 Step (curb) (QC): 4 4 Steps (QC): 88 12 Steps (QC): 88 Balance Picking up an Object (QC): 4 ADL-Treatment Eating (QC): 5 (s/u at times per pt. Though use of L hand for cutting/ scooping/ feeding) Oral Hygiene (QC): 6 (IND seated in recliner.) Bathing Location: L Arm, R Arm, L Upper Leg, R Upper Leg, L Lower Leg (including foot), R Lower Leg (including foot), Chest, Abdomen, Buttocks, Perineal Area Shower/Bathe Self (QC): 4 (Pt able to wash/dry all parts, CGA in stand at GBs for pericare and washing buttocks.) Upper Body Dressing (QC): 3 (Pt required min A doffing slab puller shirt from RUE. Slight assist to clasp bra, then able to don bra and slab puller shirt.) Lower Body Dressing (QC): 3 (Min A threading brief, pt able to thread pants and perform pant hike.) On/Off Footwear (QC): 3 (Mod A with education of AE ) Toileting Hygiene (QC): 3 (Pt able to manage clothing, CGA. 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
[2020-05-31 17:14] VITALS: BP 146/77
[2020-05-31] MEDS: CALCIUM CARB + VIT D 600 MG (CALCARB + D) TAB PO SCH (17:23)
[2020-05-31 20:40] VITALS: BP 144/67
[2020-05-31] MEDS: SIMvastatin 10 MG (ZOCOR) TAB PO SCH (20:47)
[2020-05-31] MEDS: LATANOPROST 0.005% (XALATAN) OPHTH SOLN 2.5 ML OU SCH (20:48)
[2020-06-01 06:06] VITALS: BP 157/78
[2020-06-01] MEDS: MULTIVIT W/MINERALS TAB (THERAGRAN M) PO SCH (06:27)
[2020-06-01] MEDS: DULoxetine 30 MG (CYMBALTA) CAP PO SCH (07:13)
[2020-06-01] MEDS: KCL 10 MEQ TAB (MICRO K) PO SCH ×2 (07:13→17:55)
[2020-06-01] MEDS: hydrALAZINE (APRESOLINE) 25 MG TAB PO SCH ×3 (07:13→20:30)
[2020-06-01] MEDS: FERROUS SULF 325 MG (IRON) TAB PO SCH (07:14)
[2020-06-01] MEDS: PANTOPRAZOLE 20 MG TABLET (PROTONIX) PO SCH (07:14)
[2020-06-01] MEDS: OMEGA 3 (FISH OIL) 1000 MG CAP PO SCH (07:14)
[2020-06-01] MEDS: amLODIPine 5 MG (NORVASC) TAB PO SCH (07:14)
[2020-06-01] MEDS: TOLTERODINE LA 4 MG (DETROL) CAP PO SCH (07:14)
[2020-06-01] MEDS: PREGABALIN 75 MG (LYRICA) CAP PO SCH ×2 (07:14→20:31)
[2020-06-01] MEDS: meTOprolol TARTRATE 25 MG (LOPRESSOR) TABLET PO SCH ×2 (07:14→20:31)
[2020-06-01] MEDS: ACETAMINOPHEN 500 MG TAB (TYLENOL) PO SCH ×3 (07:17→20:31)
[2020-06-01] MEDS: SENNA W/DOCUSATE (SENOKOT S) TABLET PO SCH ×2 (07:17→20:30)
[2020-06-01] MEDS: DOCUSATE SODIUM 100 MG (COLACE) CAP PO SCH ×2 (07:17→20:30)
[2020-06-01] MEDS: polyethylene glycoL POWDER 17 GM (MIRALAX) PACK PO SCH ×2 (09:37→20:32)
--- NOTE | 2020-06-01 14:21 | PM&R Progress Note ---
Subjective HPI/CC On Admission Date Seen by Provider: Jun 01, 2020 Time Seen by Provider: 15:00 Subjective/Events-last exam 06/01/20: Patient resting today Monitor closely Colace given Midline maintained 05/31/20: Patient doing well Topher look ok Moving well No pain reported BM 05/3105/30/20: Patient doing well BM+ Pain decreased Checked meds and labs Transfusion maintained and feels better Vit B12 tolerated well Iron infusions maintained 05/29/20: Patient doing well Hgb 7.0 so ordered iron infusion and 1 unit of blood due to paleness and fatigue level Received 1 unit of blood at [facility] Albumin 2.7 Improved BP with meds BM++ Midline will be placed Review of Systems General: Fatigue, Malaise Objective Exam Vital Signs Vital Signs Date Time Temp Pulse Resp B/P (MAP) Pulse Ox O2 Delivery O2 Flow Rate FiO2 06/01/20 20:00 Room Air 06/01/20 17:26 36.2 83 20 146/70 (95) 96 Capillary Refill : General Appearance: No Apparent Distress, WD/WN, Chronically ill, Other (pale) HEENT: PERRL/EOMI, Normal ENT Inspection, Pharynx Normal Neck: Full Range of Motion, Normal Inspection, Non Tender, Supple, Carotid Bruit Respiratory: Chest Non Tender, Lungs Clear, Normal Breath Sounds, No Accessory Muscle Use, No Respiratory Distress Cardiovascular: Regular Rate, Rhythm, No Edema, No Gallop, No JVD, No Murmur, Normal Peripheral Pulses Gastrointestinal: Normal Bowel Sounds, No Organomegaly, No Pulsatile Mass, Non Tender, Soft Back: Normal Inspection, No CVA Tenderness, No Vertebral Tenderness Extremity: Normal Capillary Refill, Normal Inspection, Normal Range of Motion, Non Tender, No Calf Tenderness, No Pedal Edema Neurologic/Psychiatric: Alert, Oriented x3, Normal Mood/Affect, cardiac care nurse II-XII Norm as Tested, Abnormal Gait, Motor Weakness (generalized weakness 3/5 extremities) Skin: Normal Color, Warm/Dry Lymphatic: No Adenopathy Results/Procedures Lab Patient resulted labs reviewed. FIM Transfers Therapy Code Descriptions/Definitions Functional [place] Measure: 0=Not Assessed/NA 4=Minimal Assistance 1=Total Assistance 5=Supervision or Setup 2=Maximal Assistance 6=Modified [place] 3=Moderate Assistance 7=Complete IndependenceSCALE: Activities may be completed with or without assistive devices. 2-Kyjhdbcudl-dfufaxn completes the activity by him/herself with no assistance from a helper. 5-Set-up or Clean-up Assistance-helper sets up or cleans up; patient completes activity. [place] assists only prior to or following the activity. 4-Supervision or Touching Assistance-helper provides verbal cues and/or touching/steadying and/or contact guard assistance as patient completes activity. Assistance may be provided throughout the activity or intermittently. 3-Partial/Moderate Assistance-helper does LESS THAN HALF the effort. [place] lifts, holds or supports trunk or limbs, but provides less than half the effort. 2-Substantial/Maximal Assistance-helper does MORE THAN HALF the effort. [place] lifts or holds trunk or limbs and provides more than half the effort. 8-Yynhfmhpv-hvgtyz does ALL the effort. Patient does none of the effort to complete the activity. Or, the assistance of 2 or more helpers is required for the patient to complete the activity. If activity was not attempted, code reason: 7-Patient Refused. 9-Not Applicable-not attempted and the patient did not perform the activity before the current illness, exacerbation or injury. 10-Not Attempted due to Environmental Limitations-(lack of equipment, weather restraints, etc.). 88-Not Attempted due to Medical Conditions or Safety Concerns. Roll Left to Right (QC): 6 Sit to Lying (QC): 6 Sit to Stand (QC): 5 Chair/Dmc-du-Wodmp Xfer(QC): 5 Car Transfer (QC): 4 Gait Training Does the Patient Walk?: Yes Distance: 30' x2 ; 120' Walk 10 feet (QC): 5 Walk 50 ft with 2 Turns(QC): 5 Walk 150 ft (QC): 4 Walking 10ft/uneven surface-QC: 4 Gait Persons Needed: 1 Gait Assistive Device: FWW Wheelchair Training Does the Pt Use a Wheelchair?: No Wheel 50 ft with 2 turns (QC): 9 Wheel 150 ft (QC): 9 Stair Training #of Steps: 1 1 Step (curb) (QC): 4 4 Steps (QC): 88 12 Steps (QC): 88 Balance Picking up an Object (QC): 4 ADL-Treatment Eating (QC): 5 (s/u at times per pt. Though use of L hand for cutting/ scooping/ feeding) Oral Hygiene (QC): 6 (IND seated in recliner.) Bathing Location: L Arm, R Arm, L Upper Leg, R Upper Leg, L Lower Leg (including foot), R Lower Leg (including foot), Chest, Abdomen, Buttocks, Perineal Area Shower/Bathe Self (QC): 4 (Pt able to wash/dry all parts, CGA in stand at GBs for pericare and washing buttocks.) Upper Body Dressing (QC): 3 (Pt required min A doffing green chain puller shirt from RUE. Slight assist to clasp bra, then able to don bra and green chain puller shirt.) Lower Body Dressing (QC): 3 (Min A threading brief, pt able to thread pants and perform pant hike.) On/Off Footwear (QC): 3 (Mod A with education of AE ) Toileting Hygiene (QC): 3 (Pt able to manage clothing, CGA. 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
[2020-06-01 17:26] VITALS: BP 146/70
[2020-06-01] MEDS: CALCIUM CARB + VIT D 600 MG (CALCARB + D) TAB PO SCH (17:55)
[2020-06-01] MEDS: LATANOPROST 0.005% (XALATAN) OPHTH SOLN 2.5 ML OU SCH (20:29)
[2020-06-01] MEDS: SIMvastatin 10 MG (ZOCOR) TAB PO SCH (20:30)
[2020-06-01] MEDS: MELATONIN 3 MG TABLET PO PRN (20:32)
[2020-06-02 06:00] VITALS: BP 158/70
[2020-06-02 06:04] LABS: BASOPHILS # (AUTO) 0.1 10^3/uL (0.0-0.1); BASOPHILS % (AUTO) 0 % (0-10); EOSINOPHILS # (AUTO) 0.3 10^3/uL (0.0-0.3); EOSINOPHILS % (AUTO) 3 % (0-10); HEMATOCRIT 33 % (35-52); LYMPHOCYTES # (AUTO) 2.6 10^3/uL (1.0-4.0); LYMPHOCYTES % (AUTO) 19 % (12-44); MEAN CORPUSCULAR HEMOGLOBIN 28 pg (25-34); MEAN CORPUSCULAR HGB CONC 31 g/dL (32-36); MEAN CORPUSCULAR VOLUME 90 fL (80-99); MEAN PLATELET VOLUME 9.7 fL (9.0-12.2); MONOCYTES # (AUTO) 1.3 10^3/uL (0.0-1.0); MONOCYTES % (AUTO) 10 % (0-12); NEUTROPHILS % (AUTO) 67 % (42-75); PLATELET COUNT 304 10^3/uL (130-400); WHITE BLOOD COUNT 13.4 10^3/uL (4.3-11.0)
[2020-06-02] MEDS: MULTIVIT W/MINERALS TAB (THERAGRAN M) PO SCH (06:07)
[2020-06-02 06:24] LABS: ALBUMIN 3.2 GM/DL (3.2-4.5); POTASSIUM 3.6 MMOL/L (3.6-5.0)
[2020-06-02 06:25] LABS: CALCIUM 8.6 MG/DL (8.5-10.1)
[2020-06-02 06:27] LABS: TOTAL PROTEIN 6.3 GM/DL (6.4-8.2)
[2020-06-02 06:29] LABS: BILIRUBIN,TOTAL 0.3 MG/DL (0.1-1.0)
[2020-06-02 06:30] LABS: CREATININE SERUM 1.05 MG/DL (0.60-1.30)
[2020-06-02] MEDS: polyethylene glycoL POWDER 17 GM (MIRALAX) PACK PO SCH ×2 (09:00→21:17)
--- NOTE | 2020-06-02 09:00 | Physical Therapy Daily Note ---
PT Daily Note-Current Subjective Pt. states she feels tired but is making progress. Pt. states she has back pain at 3/10 Pain Numeric Pain Scale: 3 Location: Medial Location Body Site: Back Pain Description: Ache Mental Status Patient Orientation: Normal For Age Transfers SCALE: Activities may be completed with or without assistive devices. 8-Ckfnnazoro-unvxkaa completes the activity by him/herself with no assistance from a helper. 5-Set-up or Clean-up Assistance-helper sets up or cleans up; patient completes activity. [place] assists only prior to or following the activity. 4-Supervision or Touching Assistance-helper provides verbal cues and/or touching/steadying and/or contact guard assistance as patient completes activity. Assistance may be provided throughout the activity or intermittently. 3-Partial/Moderate Assistance-helper does LESS THAN HALF the effort. [place] lifts, holds or supports trunk or limbs, but provides less than half the effort. 2-Substantial/Maximal Assistance-helper does MORE THAN HALF the effort. [place] l ifts or holds trunk or limbs and provides more than half the effort. 1-Dwzeavzte-ddytvw does ALL the effort. Patient does none of the effort to complete the activity. Or, the assistance of 2 or more helpers is required for the patient to complete the activity. If activity was not attempted, code reason: 7-Patient Refused. 9-Not Applicable-not attempted and the patient did not perform the activity before the current illness, exacerbation or injury. 10-Not Attempted due to Environmental Limitations-(lack of equipment, weather restraints, etc.). 88-Not Attempted due to Medical Conditions or Safety Concerns. Roll Left & Right (QC): 5 Sit to Lying (QC): 5 Lying to Sitting/Side of Bed(Q: 5 Sit to Stand (QC): 5 Chair/Xpe-wt-Hibks Xfer(QC): 5 Toilet Transfer (QC): 5 Car Transfer (QC): 5 Gait Training Does the Patient Walk?: Yes Walk 10 feet (QC): 5 Walk 50 ft with 2 Turns(QC): 5 Walk 150 ft (QC): 4 Gait Persons Needed: 1 Gait Assistive Device: FWW pt. with crossover pattern at turns was instructed on safety of turning etc, Stair Training Stair Training: Handrails/: uses walker #of Steps: 1 1 Step (curb) (QC): 4 Stairs: Pattern: Step to pt. declines stair steps stating she never has to use steps Exercises Supine Ex: Bridging, Ankle pumps, Quad Set, Rolling, Glut sets, Heel Slides, Short Arc Quads, Scooting, Straight leg raise, Hip abd/add Supine Reps: 15 Seated Therapy Exercises: Ankle pumps, Sit to stand, Long arc quads, Hip flexion, Hip abd/add Seated Reps: 15 Treatments toileting, hand washing, combing hair all SBA Assessment Current Status: Good Progress PT Short Term Goals Short Term Goals Time Frame: Jun 04, 2020 Roll Left & Right: 6 Sit to lyin Lying to sitting on side of be: 6 Sit to stand: 4 Chair/lwc-ec-ndyjj transfer: 4 Walk 10 feet: 4 Walk 50 feet with two turns: 4 Walk 150 feet: 4 PT Halfway Goals Tabular Typist Goals PT Tabular Typist Goals Time Frame: Jun 18, 2020 Roll Left & Right (QC): 6 Sit to Lying (QC): 6 Lying-Sitting on Side/Bed(QC): 6 Sit to Stand (QC): 5 Chair/Grs-rr-Fjmam Xfer(QC): 5 Toilet Transfer (QC): 5 Car Transfer (QC): 5 Does the Patient Walk: Yes Walk 10 feet (QC): 5 Walk 50ft with 2 Turns (QC): 5 Walk 150 ft (QC): 5 Walking 10ft on Uneven Surface: 5 1 Step (curb) (QC): 4 4 Steps (QC): 4 12 Steps (QC): 88 Picking up an Object (QC): 4 Wheel 50 feet with 2 turns (QC: 9 Wheel 150 feet: 9 PT Plan Treatment/Plan Treatment Plan: Continue Plan of Care Treatment Plan: Education, Functional Activity Matt, Functional Strength, Group Therapy, Gait, Safety, Therapeutic Exercise, Transfers Treatment Duration: Jun 18, 2020 Frequency: At least 5 of 7 days/Wk (IRF) Estimated Hrs Per Day: 1.5 hours per day Patient and/or Family Agrees t: Yes Safety Risks/Education Patient Education: Gait Training, Transfer Techniques, Steps, Correct Positioning, Disease Process, Safety Issues Teaching Recipient: Patient Teaching Methods: Demonstration, Discussion Response to Teaching: Verbalize Understanding, Return Demonstration, Reinforcement Needed Time/GCodes Time In: 800 Time Out: 900 Total Billed Treatment Time: 60 Total Billed Treatment 1,EX25m,GT15m,FA20m MIKE HOLLIDAY PTA Jun 02, 2020 09:00
[2020-06-02] MEDS: PREGABALIN 75 MG (LYRICA) CAP PO SCH ×2 (09:10→21:15)
[2020-06-02] MEDS: FERROUS SULF 325 MG (IRON) TAB PO SCH (09:10)
[2020-06-02] MEDS: KCL 10 MEQ TAB (MICRO K) PO SCH ×2 (09:10→17:38)
[2020-06-02] MEDS: amLODIPine 5 MG (NORVASC) TAB PO SCH (09:10)
[2020-06-02] MEDS: PANTOPRAZOLE 20 MG TABLET (PROTONIX) PO SCH (09:10)
[2020-06-02] MEDS: SENNA W/DOCUSATE (SENOKOT S) TABLET PO SCH ×2 (09:10→21:17)
[2020-06-02] MEDS: DULoxetine 30 MG (CYMBALTA) CAP PO SCH (09:10)
[2020-06-02] MEDS: DOCUSATE SODIUM 100 MG (COLACE) CAP PO SCH ×2 (09:10→21:17)
[2020-06-02] MEDS: OMEGA 3 (FISH OIL) 1000 MG CAP PO SCH ×2 (09:10→17:36)
[2020-06-02] MEDS: ACETAMINOPHEN 500 MG TAB (TYLENOL) PO SCH ×3 (09:11→21:15)
[2020-06-02] MEDS: IRON SUCROSE 200 MG/10 ML (VENOFER) VIAL IV SCH (09:11)
[2020-06-02] MEDS: TOLTERODINE LA 4 MG (DETROL) CAP PO SCH (09:11)
[2020-06-02] MEDS: hydrALAZINE (APRESOLINE) 25 MG TAB PO SCH ×3 (09:11→21:14)
[2020-06-02] MEDS: meTOprolol TARTRATE 25 MG (LOPRESSOR) TABLET PO SCH ×2 (09:11→21:14)
--- NOTE | 2020-06-02 10:31 | Occupational Ther Daily Note ---
OT Current Status-Daily Note Subjective Pt seated in recliner, agreeable to OT Tx. Pt reports fatigue, but states she feels okay. Mental Status/Objective Patient Orientation: Person, Place, Time, Situation Attachments: IV ADL-Treatment Therapy Code Descriptions/Definitions Functional [place] Measure: 0=Not Assessed/NA 4=Minimal Assistance 1=Total Assistance 5=Supervision or Setup 2=Maximal Assistance 6=Modified [place] 3=Moderate Assistance 7=Complete IndependenceSCALE: Activities may be completed with or without assistive devices. 0-Hxhinxxnab-zzsorke completes the activity by him/herself with no assistance from a helper. 5-Set-up or Clean-up Assistance-helper sets up or cleans up; patient completes activity. [place] assists only prior to or following the activity. 4-Supervision or Touching Assistance-helper provides verbal cues and/or touching/steadying and/or contact guard assistance as patient completes activity. Assistance may be provided throughout the activity or intermittently. 3-Partial/Moderate Assistance-helper does LESS THAN HALF the effort. [place] lifts, holds or supports trunk or limbs, but provides less than half the effort. 2-Substantial/Maximal Assistance-helper does MORE THAN HALF the effort. [place] lifts or holds trunk or limbs and provides more than half the effort. 6-Rpikrhrjj-bvpduw does ALL the effort. Patient does none of the effort to complete the activity. Or, the assistance of 2 or more helpers is required for the patient to complete the activity. If activity was not attempted, code reason: 7-Patient Refused. 9-Not Applicable-not attempted and the patient did not perform the activity before the current illness, exacerbation or injury. 10-Not Attempted due to Environmental Limitations-(lack of equipment, weather restraints, etc.). 88-Not Attempted due to Medical Conditions or Safety Concerns. Shower/Bathe Self (QC): 3 (Pt completed sponge bath at recliner, assist to wash buttocks. Pt able to wash/dry all other parts.) Upper Body Dressing (QC): 3 (Pt doffed/donned hand assembler for puller over shirt and bra. Pt required assistance with fastening bra clasp, pt able to complete other parts with increased time.) Lower Body Dressing (QC): 4 (SBA, pt able to don pants.) On/Off Footwear: 3 (Pt able to doff socks using dressing stick, min A donning gripper sock using sock aide.) Toileting Hygiene (QC): 3 (Pt able to complete clothing management and pericare, assist with washing buttocks/hygiene post BM) Toilet Transfer (QC): 4 (CGA on/off toilet using GBs and FWW) Other Treatment Pt seated in recliner, states she is fatigued and receiving iron transfusion. Pt agreeable to sponge bath and ADL tx. OT set up for sponge bath, then pt completed upper body bathing and dressing at recliner. Pt then states need to toilet, using FWW to transfer to bathroom, CGA. Pt completed toileting, then returned to recliner for lower body bathing and dressing. Pt required rest breaks throughout task. Pt used AE as needed throughout tx (long handled sponge, sock aide, dressing stick). Post tx, pt seated in recliner, call light in reach and all needs met. Education OT Patient Education: Correct positioning, Energy conservation, Modified ADL techniques, Progress toward Goal/Update tx plan, Purpose of tx/functional activities, Use of adapted equipment Teaching Recipient: Patient Teaching Methods: Discussion Response to Teaching: Verbalize Understanding OT Short Term Goals Short Term Goals Upper body dressin Lower body dressin OT Correction Goals Correction Goals Time Frame: Jun 11, 2020 Eating (QC): 6 Oral Hygiene (QC): 6 Toileting Hygiene (QC): 6 Shower/Bathe Self (QC): 6 Upper Body Dressing (QC): 3 Lower Body Dressing (QC): 6 On/Off Footwear (QC): 6 Additional Goals: 1-Demonstrate ADL Tasks, 2-Verbalize Understanding, 3- ImproveStrength/Matt 1=Demonstrate adherence to instructed precautions during ADL tasks. 2=Patient will verbalize/demonstrate understanding of assistive devices/modifications for ADL. 3=Patient will improve strength/tolerance for activity to enable patient to perform ADL's. OT Education/Plan Problem List/Assessment Assessment: Decreased Activ Tolerance, Decreased UE Strength, Impaired Funct Balance, Impaired I ADL's, Impaired Self-Care Skills Discharge Recommendations Plan/Recommendations: Continue POC Treatment Plan/Plan of Care Patient would benefit from OT for education, treatment and training to promote independence in ADL's, mobility, safety and/or upper extremity function for ADL's. Plan of Care: ADL Retraining, Caregiver Training, Concurrent Therapy, Functional Mobility, Group Exercise/Act as Ind, UE Funct Exercise/Act Treatment Duration: Jun 11, 2020 Frequency: At least 5 of 7 days/Wk (IRF) Estimated Hrs Per Day: 1.5 hours per day Agreement: Yes Rehab Potential: Fair Time/GCodes Start Time: 09:15 Stop Time: 10:15 Total Time Billed (hr/min): 60 Billed Treatment Time 1, ADL 4 TIMOTHY BAKER OT Jun 02, 2020 10:31
--- NOTE | 2020-06-02 10:32 | PM&R Progress Note ---
Subjective HPI/CC On Admission Date Seen by Provider: Jun 02, 2020 Time Seen by Provider: 10:30 Subjective/Events-last exam 06/02/20: Pt doing really well Hgb 10.0 Continue on iron infusions WBC 13.4 Iron level was 18 06/01/20: Patient resting today Monitor closely Colace given Midline maintained 05/31/20: Patient doing well Topher look ok Moving well No pain reported BM 05/3105/30/20: Patient doing well BM+ Pain decreased Checked meds and labs Transfusion maintained and feels better Vit B12 tolerated well Iron infusions maintained 05/29/20: Patient doing well Hgb 7.0 so ordered iron infusion and 1 unit of blood due to paleness and fatigue level Received 1 unit of blood at [facility] Albumin 2.7 Improved BP with meds BM++ Midline will be placed Review of Systems General: Fatigue, Malaise Neurological: Weakness Objective Exam Vital Signs Vital Signs Date Time Temp Pulse Resp B/P (MAP) Pulse Ox O2 Delivery O2 Flow Rate FiO2 06/02/20 20:00 Room Air 06/02/20 18:16 36.3 97 18 135/72 (93) 93 Capillary Refill : General Appearance: No Apparent Distress, WD/WN, Chronically ill, Other (pale) HEENT: PERRL/EOMI, Normal ENT Inspection, Pharynx Normal Neck: Full Range of Motion, Normal Inspection, Non Tender, Supple, Carotid Bruit Respiratory: Chest Non Tender, Lungs Clear, Normal Breath Sounds, No Accessory Muscle Use, No Respiratory Distress Cardiovascular: Regular Rate, Rhythm, No Edema, No Gallop, No JVD, No Murmur, Normal Peripheral Pulses Gastrointestinal: Normal Bowel Sounds, No Organomegaly, No Pulsatile Mass, Non Tender, Soft Back: Normal Inspection, No CVA Tenderness, No Vertebral Tenderness Extremity: Normal Capillary Refill, Normal Inspection, Normal Range of Motion, Non Tender, No Calf Tenderness, No Pedal Edema Neurologic/Psychiatric: Alert, Oriented x3, Normal Mood/Affect, internal medicine hospitalist II-XII Norm as Tested, Abnormal Gait, Motor Weakness (generalized weakness 3/5 extremities) Skin: Normal Color, Warm/Dry Lymphatic: No Adenopathy Results/Procedures Lab Patient resulted labs reviewed. FIM Transfers Therapy Code Descriptions/Definitions Functional [place] Measure: 0=Not Assessed/NA 4=Minimal Assistance 1=Total Assistance 5=Supervision or Setup 2=Maximal Assistance 6=Modified [place] 3=Moderate Assistance 7=Complete IndependenceSCALE: Activities may be completed with or without assistive devices. 4-Odkogbrwnm-ehwlbnc completes the activity by him/herself with no assistance from a helper. 5-Set-up or Clean-up Assistance-helper sets up or cleans up; patient completes activity. [place] assists only prior to or following the activity. 4-Supervision or Touching Assistance-helper provides verbal cues and/or touching/steadying and/or contact guard assistance as patient completes activity. Assistance may be provided throughout the activity or intermittently. 3-Partial/Moderate Assistance-helper does LESS THAN HALF the effort. [place] lifts, holds or supports trunk or limbs, but provides less than half the effort. 2-Substantial/Maximal Assistance-helper does MORE THAN HALF the effort. [place] lifts or holds trunk or limbs and provides more than half the effort. 3-Phgsijqrp-wipdnn does ALL the effort. Patient does none of the effort to complete the activity. Or, the assistance of 2 or more helpers is required for the patient to complete the activity. If activity was not attempted, code reason: 7-Patient Refused. 9-Not Applicable-not attempted and the patient did not perform the activity before the current illness, exacerbation or injury. 10-Not Attempted due to Environmental Limitations-(lack of equipment, weather restraints, etc.). 88-Not Attempted due to Medical Conditions or Safety Concerns. Roll Left to Right (QC): 5 Sit to Lying (QC): 5 Sit to Stand (QC): 5 Chair/Tkw-gr-Wmaml Xfer(QC): 5 Car Transfer (QC): 5 Gait Training Does the Patient Walk?: Yes Distance: 30' x2 ; 120' Walk 10 feet (QC): 5 Walk 50 ft with 2 Turns(QC): 5 Walk 150 ft (QC): 4 Walking 10ft/uneven surface-QC: 4 Gait Persons Needed: 1 Gait Assistive Device: FWW Wheelchair Training Does the Pt Use a Wheelchair?: No Wheel 50 ft with 2 turns (QC): 9 Wheel 150 ft (QC): 9 Stair Training Stair Training: Handrails/: uses walker #of Steps: 1 1 Step (curb) (QC): 4 4 Steps (QC): 88 12 Steps (QC): 88 Stairs: Pattern: Step to Balance Picking up an Object (QC): 4 ADL-Treatment Eating (QC): 5 (s/u at times per pt. Though use of L hand for cutting/ scooping/ feeding) Oral Hygiene (QC): 6 (IND seated in recliner.) Bathing Location: L Arm, R Arm, L Upper Leg, R Upper Leg, L Lower Leg (including foot), R Lower Leg (including foot), Chest, Abdomen, Buttocks, Perineal Area Shower/Bathe Self (QC): 4 (Pt able to wash/dry all parts, CGA in stand at GBs for pericare and washing buttocks.) Upper Body Dressing (QC): 3 (Pt required min A doffing harness puller shirt from RUE. Slight assist to clasp bra, then able to don bra and harness puller shirt.) Lower Body Dressing (QC): 3 (Min A threading brief, pt able to thread pants and perform pant hike.) On/Off Footwear (QC): 3 (Mod A with education of AE ) Toileting Hygiene (QC): 3 (Pt able to manage clothing, CGA. 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
--- NOTE | 2020-06-02 12:17 | Physical Therapy Daily Note ---
PT Daily Note-Current Subjective Pt. agrees to Rx. Pain Location: No Pain Reported Mental Status Patient Orientation: Normal For Age Attachments: Other-See Comments (mask) Transfers SCALE: Activities may be completed with or without assistive devices. 1-Flexzmsacb-obrjkou completes the activity by him/herself with no assistance from a helper. 5-Set-up or Clean-up Assistance-helper sets up or cleans up; patient completes activity. [place] assists only prior to or following the activity. 4-Supervision or Touching Assistance-helper provides verbal cues and/or touching/steadying and/or contact guard assistance as patient completes activity. Assistance may be provided throughout the activity or intermittently. 3-Partial/Moderate Assistance-helper does LESS THAN HALF the effort. [place] lifts, holds or supports trunk or limbs, but provides less than half the effort. 2-Substantial/Maximal Assistance-helper does MORE THAN HALF the effort. [place] lifts or holds trunk or limbs and provides more than half the effort. 5-Xgqktosqq-pkqwrw does ALL the effort. Patient does none of the effort to c omplete the activity. Or, the assistance of 2 or more helpers is required for the patient to complete the activity. If activity was not attempted, code reason: 7-Patient Refused. 9-Not Applicable-not attempted and the patient did not perform the activity before the current illness, exacerbation or injury. 10-Not Attempted due to Environmental Limitations-(lack of equipment, weather restraints, etc.). 88-Not Attempted due to Medical Conditions or Safety Concerns. sit to stand from recliner, chair and toilet CGA Gait Training Does the Patient Walk?: Yes Gait Assistive Device: FWW 175 ft x 2 with continued emphasis on safe turns as pt. "T position turns" FWW SBA Exercises Standing: Hip Abduction, Heel/toe raises, Marching, Side steps Standing Reps: 15 Assessment Current Status: Good Progress PT Short Term Goals Short Term Goals Time Frame: Jun 04, 2020 Roll Left & Right: 6 Sit to lyin Lying to sitting on side of be: 6 Sit to stand: 4 Chair/bxk-uq-daiho transfer: 4 Walk 10 feet: 4 Walk 50 feet with two turns: 4 Walk 150 feet: 4 PT Half-Way Goals Half-Way Goals PT Half-Way Goals Time Frame: Jun 18, 2020 Roll Left & Right (QC): 6 Sit to Lying (QC): 6 Lying-Sitting on Side/Bed(QC): 6 Sit to Stand (QC): 5 Chair/Cbj-ho-Ugerz Xfer(QC): 5 Toilet Transfer (QC): 5 Car Transfer (QC): 5 Does the Patient Walk: Yes Walk 10 feet (QC): 5 Walk 50ft with 2 Turns (QC): 5 Walk 150 ft (QC): 5 Walking 10ft on Uneven Surface: 5 1 Step (curb) (QC): 4 4 Steps (QC): 4 12 Steps (QC): 88 Picking up an Object (QC): 4 Wheel 50 feet with 2 turns (QC: 9 Wheel 150 feet: 9 PT Plan Treatment/Plan Treatment Plan: Continue Plan of Care Treatment Plan: Education, Functional Activity Matt, Functional Strength, Group Therapy, Gait, Safety, Therapeutic Exercise, Transfers Treatment Duration: Jun 18, 2020 Frequency: At least 5 of 7 days/Wk (IRF) Estimated Hrs Per Day: 1.5 hours per day Patient and/or Family Agrees t: Yes Safety Risks/Education Patient Education: Gait Training, Transfer Techniques, Reviewed Use of Ice, Disease Process, Safety Issues Teaching Recipient: Patient Teaching Methods: Demonstration, Discussion Response to Teaching: Verbalize Understanding, Return Demonstration Time/GCodes Time In: 1145 Time Out: 1215 Total Billed Treatment Time: 30 Total Billed Treatment 1,GT15m,EX15m MIKE HOLLIDAY PTA Jun 02, 2020 12:17
--- NOTE | 2020-06-02 13:50 | Occupational Ther Daily Note ---
OT Current Status-Daily Note Subjective Pt laying in bed, agreeable to OT Tx. ADL-Treatment Therapy Code Descriptions/Definitions Functional [place] Measure: 0=Not Assessed/NA 4=Minimal Assistance 1=Total Assistance 5=Supervision or Setup 2=Maximal Assistance 6=Modified [place] 3=Moderate Assistance 7=Complete IndependenceSCALE: Activities may be completed with or without assistive devices. 1-Cpjwkoxrus-oyfshlc completes the activity by him/herself with no assistance from a helper. 5-Set-up or Clean-up Assistance-helper sets up or cleans up; patient completes activity. [place] assists only prior to or following the activity. 4-Supervision or Touching Assistance-helper provides verbal cues and/or touching/steadying and/or contact guard assistance as patient completes activity. Assistance may be provided throughout the activity or intermittently. 3-Partial/Moderate Assistance-helper does LESS THAN HALF the effort. [place] lifts, holds or supports trunk or limbs, but provides less than half the effort. 2-Substantial/Maximal Assistance-helper does MORE THAN HALF the effort. [place] lifts or holds trunk or limbs and provides more than half the effort. 7-Ennxoqcze-uhldrl does ALL the effort. Patient does none of the effort to com plete the activity. Or, the assistance of 2 or more helpers is required for the patient to complete the activity. If activity was not attempted, code reason: 7-Patient Refused. 9-Not Applicable-not attempted and the patient did not perform the activity before the current illness, exacerbation or injury. 10-Not Attempted due to Environmental Limitations-(lack of equipment, weather restraints, etc.). 88-Not Attempted due to Medical Conditions or Safety Concerns. Other Treatment Pt laying in bed, transferred supine to sit EOB, supervision. OT Tx with focus on increasing fine motor strength/coordination, and for low vision strategies. Pt initially removed x15 beads from moderate resistance theraputty, pt able to locate all beads without cues. Pt then completed peg morris task, matching colors of pegs. Pt required minimal verbal cues with task. Pt transferred s upine, supervision. Post tx, pt laying in bed, call light in reach and all needs met. Education OT Patient Education: Correct positioning, Modified ADL techniques, Progress toward Goal/Update tx plan, Purpose of tx/functional activities Teaching Recipient: Patient Teaching Methods: Discussion Response to Teaching: Verbalize Understanding OT Short Term Goals Short Term Goals Upper body dressin Lower body dressin OT Fence Gate Assembler Goals Fence Gate Assembler Goals Time Frame: Jun 11, 2020 Eating (QC): 6 Oral Hygiene (QC): 6 Toileting Hygiene (QC): 6 Shower/Bathe Self (QC): 6 Upper Body Dressing (QC): 3 Lower Body Dressing (QC): 6 On/Off Footwear (QC): 6 Additional Goals: 1-Demonstrate ADL Tasks, 2-Verbalize Understanding, 3- ImproveStrength/Matt 1=Demonstrate adherence to instructed precautions during ADL tasks. 2=Patient will verbalize/demonstrate understanding of assistive devices/modif ications for ADL. 3=Patient will improve strength/tolerance for activity to enable patient to perform ADL's. OT Education/Plan Problem List/Assessment Assessment: Decreased Activ Tolerance, Decreased UE Strength, Impaired I ADL's, Impaired Self-Care Skills, Restricted Funct UE ROM, Visual-Perceptual Deficit Discharge Recommendations Plan/Recommendations: Continue POC Treatment Plan/Plan of Care Patient would benefit from OT for education, treatment and training to promote independence in ADL's, mobility, safety and/or upper extremity function for ADL's. Plan of Care: ADL Retraining, Caregiver Training, Concurrent Therapy, Functional Mobility, Group Exercise/Act as Ind, UE Funct Exercise/Act Treatment Duration: Jun 11, 2020 Frequency: At least 5 of 7 days/Wk (IRF) Estimated Hrs Per Day: 1.5 hours per day Agreement: Yes Rehab Potential: Fair Time/GCodes Start Time: 13:00 Stop Time: 13:30 Total Time Billed (hr/min): 30 Billed Treatment Time 1, FA 2 TIMOTHY BAKER OT Jun 02, 2020 13:50
[2020-06-02] MEDS: CALCIUM CARB + VIT D 600 MG (CALCARB + D) TAB PO SCH (17:36)
[2020-06-02 18:16] VITALS: BP 135/72
[2020-06-02] MEDS: LATANOPROST 0.005% (XALATAN) OPHTH SOLN 2.5 ML OU SCH (21:14)
[2020-06-02] MEDS: MELATONIN 3 MG TABLET PO PRN (21:14)
[2020-06-02] MEDS: SIMvastatin 10 MG (ZOCOR) TAB PO SCH (21:14)
[2020-06-03] MEDS: MULTIVIT W/MINERALS TAB (THERAGRAN M) PO SCH (06:32)
[2020-06-03 07:14] VITALS: BP 166/70
[2020-06-03 08:28] VITALS: BP 137/71
[2020-06-03] MEDS: hydrALAZINE (APRESOLINE) 25 MG TAB PO SCH ×3 (08:28→20:47)
[2020-06-03] MEDS: FERROUS SULF 325 MG (IRON) TAB PO SCH (08:28)
[2020-06-03] MEDS: TOLTERODINE LA 4 MG (DETROL) CAP PO SCH (08:28)
[2020-06-03] MEDS: PANTOPRAZOLE 20 MG TABLET (PROTONIX) PO SCH (08:28)
[2020-06-03] MEDS: ACETAMINOPHEN 500 MG TAB (TYLENOL) PO SCH ×3 (08:28→20:47)
[2020-06-03] MEDS: meTOprolol TARTRATE 25 MG (LOPRESSOR) TABLET PO SCH ×2 (08:28→20:47)
[2020-06-03] MEDS: DOCUSATE SODIUM 100 MG (COLACE) CAP PO SCH ×2 (08:28→19:19)
[2020-06-03] MEDS: KCL 10 MEQ TAB (MICRO K) PO SCH ×2 (08:29→17:13)
[2020-06-03] MEDS: PREGABALIN 75 MG (LYRICA) CAP PO SCH ×2 (08:29→20:47)
[2020-06-03] MEDS: DULoxetine 30 MG (CYMBALTA) CAP PO SCH (08:29)
[2020-06-03] MEDS: amLODIPine 5 MG (NORVASC) TAB PO SCH (08:29)
[2020-06-03] MEDS: OMEGA 3 (FISH OIL) 1000 MG CAP PO SCH (08:29)
[2020-06-03] MEDS: polyethylene glycoL POWDER 17 GM (MIRALAX) PACK PO SCH ×2 (09:10→19:19)
--- NOTE | 2020-06-03 09:10 | PM&R Progress Note ---
Subjective HPI/CC On Admission Date Seen by Provider: Jun 03, 2020 Time Seen by Provider: 09:15 Subjective/Events-last exam 06/03/20: Pt doing very well DC soon per patient Her anniversary is Tuesday Bowels are moving very well IV iron infusions have really helped her 06/02/20: Pt doing really well Hgb 10.0 Continue on iron infusions WBC 13.4 Iron level was 18 06/01/20: Patient resting today Monitor closely Colace given Midline maintained 05/31/20: Patient doing well [place] look ok Moving well No pain reported BM 05/3105/30/20: Patient doing well BM+ Pain decreased Checked meds and labs Transfusion maintained and feels better Vit B12 tolerated well Iron infusions maintained 05/29/20: Patient doing well Hgb 7.0 so ordered iron infusion and 1 unit of blood due to paleness and fatigue level Received 1 unit of blood at [facility] Albumin 2.7 Improved BP with meds BM++ Midline will be placed Review of Systems General: Fatigue, Malaise Objective Exam Vital Signs Vital Signs Date Time Temp Pulse Resp B/P (MAP) Pulse Ox O2 Delivery O2 Flow Rate FiO2 06/03/20 20:30 Room Air 06/03/20 17:29 36.6 85 18 138/67 (90) 95 Capillary Refill : General Appearance: No Apparent Distress, WD/WN, Chronically ill, Other (pale) HEENT: PERRL/EOMI, Normal ENT Inspection, Pharynx Normal Neck: Full Range of Motion, Normal Inspection, Non Tender, Supple, Carotid Bruit Respiratory: Chest Non Tender, Lungs Clear, Normal Breath Sounds, No Accessory Muscle Use, No Respiratory Distress Cardiovascular: Regular Rate, Rhythm, No Edema, No Gallop, No JVD, No Murmur, Normal Peripheral Pulses Gastrointestinal: Normal Bowel Sounds, No Organomegaly, No Pulsatile Mass, Non Tender, Soft Back: Normal Inspection, No CVA Tenderness, No Vertebral Tenderness Extremity: Normal Capillary Refill, Normal Inspection, Normal Range of Motion, Non Tender, No Calf Tenderness, No Pedal Edema Neurologic/Psychiatric: Alert, Oriented x3, Normal Mood/Affect, bindery machine setter II-XII Norm as Tested, Abnormal Gait, Motor Weakness (generalized weakness 3/5 extremities) Skin: Normal Color, Warm/Dry Lymphatic: No Adenopathy Results/Procedures Lab Patient resulted labs reviewed. FIM Transfers Therapy Code Descriptions/Definitions Functional [place] Measure: 0=Not Assessed/NA 4=Minimal Assistance 1=Total Assistance 5=Supervision or Setup 2=Maximal Assistance 6=Modified [place] 3=Moderate Assistance 7=Complete IndependenceSCALE: Activities may be completed with or without assistive devices. 2-Fdcggrpozx-myrswep completes the activity by him/herself with no assistance from a helper. 5-Set-up or Clean-up Assistance-helper sets up or cleans up; patient completes activity. [place] assists only prior to or following the activity. 4-Supervision or Touching Assistance-helper provides verbal cues and/or touching/steadying and/or contact guard assistance as patient completes activity. Assistance may be provided throughout the activity or intermittently. 3-Partial/Moderate Assistance-helper does LESS THAN HALF the effort. [place] lifts, holds or supports trunk or limbs, but provides less than half the effort. 2-Substantial/Maximal Assistance-helper does MORE THAN HALF the effort. [place] lifts or holds trunk or limbs and provides more than half the effort. 7-Ukhobkfts-rytwdu does ALL the effort. Patient does none of the effort to complete the activity. Or, the assistance of 2 or more helpers is required for the patient to complete the activity. If activity was not attempted, code reason: 7-Patient Refused. 9-Not Applicable-not attempted and the patient did not perform the activity before the current illness, exacerbation or injury. 10-Not Attempted due to Environmental Limitations-(lack of equipment, weather restraints, etc.). 88-Not Attempted due to Medical Conditions or Safety Concerns. Roll Left to Right (QC): 5 Sit to Lying (QC): 5 Sit to Stand (QC): 5 Chair/Jhp-yf-Afccy Xfer(QC): 5 Car Transfer (QC): 5 Gait Training Does the Patient Walk?: Yes Distance: 30' x2 ; 120' Walk 10 feet (QC): 5 Walk 50 ft with 2 Turns(QC): 5 Walk 150 ft (QC): 4 Walking 10ft/uneven surface-QC: 4 Gait Persons Needed: 1 Gait Assistive Device: FWW Wheelchair Training Does the Pt Use a Wheelchair?: No Wheel 50 ft with 2 turns (QC): 9 Wheel 150 ft (QC): 9 Stair Training Stair Training: Handrails/: uses walker #of Steps: 1 1 Step (curb) (QC): 4 4 Steps (QC): 88 12 Steps (QC): 88 Stairs: Pattern: Step to Balance Picking up an Object (QC): 4 ADL-Treatment Eating (QC): 5 (s/u at times per pt. Though use of L hand for cutting/ scooping/ feeding) Oral Hygiene (QC): 6 (IND seated in recliner.) Bathing Location: L Arm, R Arm, L Upper Leg, R Upper Leg, L Lower Leg (including foot), R Lower Leg (including foot), Chest, Abdomen, Buttocks, Perineal Area Shower/Bathe Self (QC): 3 (Pt completed sponge bath at recliner, assist to wash buttocks. Pt able to wash/dry all other parts.) Upper Body Dressing (QC): 3 (Pt doffed/donned sample puller shirt and bra. 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
[2020-06-03] MEDS: SENNA W/DOCUSATE (SENOKOT S) TABLET PO SCH ×2 (09:11→19:19)
--- NOTE | 2020-06-03 10:32 | Occupational Ther Daily Note ---
OT Current Status-Daily Note Subjective Pt seated in recliner, agreeable to OT Tx. Pt reports fatigue, but agreeable to OT tx with focus on ADLs. Mental Status/Objective Patient Orientation: Person, Place, Time, Situation ADL-Treatment Therapy Code Descriptions/Definitions Functional [place] Measure: 0=Not Assessed/NA 4=Minimal Assistance 1=Total Assistance 5=Supervision or Setup 2=Maximal Assistance 6=Modified [place] 3=Moderate Assistance 7=Complete IndependenceSCALE: Activities may be completed with or without assistive devices. 4-Tprdxsrfes-gbnsqbn completes the activity by him/herself with no assistance from a helper. 5-Set-up or Clean-up Assistance-helper sets up or cleans up; patient completes activity. [place] assists only prior to or following the activity. 4-Supervision or Touching Assistance-helper provides verbal cues and/or touching/steadying and/or contact guard assistance as patient completes activity. Assistance may be provided throughout the activity or intermittently. 3-Partial/Moderate Assistance-helper does LESS THAN HALF the effort. [place] li fts, holds or supports trunk or limbs, but provides less than half the effort. 2-Substantial/Maximal Assistance-helper does MORE THAN HALF the effort. [place] lifts or holds trunk or limbs and provides more than half the effort. 7-Nthtgkdmn-evthxx does ALL the effort. Patient does none of the effort to complete the activity. Or, the assistance of 2 or more helpers is required for the patient to complete the activity. If activity was not attempted, code reason: 7-Patient Refused. 9-Not Applicable-not attempted and the patient did not perform the activity before the current illness, exacerbation or injury. 10-Not Attempted due to Environmental Limitations-(lack of equipment, weather restraints, etc.). 88-Not Attempted due to Medical Conditions or Safety Concerns. Oral Hygiene (QC): 4 (Supervision standing at sink.) Shower/Bathe Self (QC): 4 (supervision, pt able to wash/dry all parts standing at GBs as needed) Upper Body Dressing (QC): 5 (set up, pt able to doff bra, don bra and ice puller shirt with increased time with fasteners) Lower Body Dressing (QC): 4 (supervision, pt able to doff/don pants and brief, using dressing stick as needed) On/Off Footwear: 3 (Pt used dressing stick to doff socks with set up, able to don socks using sock aide, min A due to pt's 5th toe getting stuck on sock aide, and slight assist with orientation.) Toileting Hygiene (QC): 7 (Pt declined need to toilet.) Other Treatment Pt seated in recliner, agreeable to OT tx. Pt used FWW to ambulate into bathroom and onto SC with SBA. Pt completed showering, then transferred to chair to complete dressing. Pt took rest breaks as needed throughout tx. Pt then stood at sink to brush hair and complete oral care, used FWW to return to recliner. Post tx, pt laying in bed, call light in reach and all needs met. Education OT Patient Education: Correct positioning, Energy conservation, Exercise program, Modified ADL techniques, Progress toward Goal/Update tx plan, Purpose of tx/functional activities, Use of adapted equipment Teaching Recipient: Patient Teaching Methods: Discussion Response to Teaching: Verbalize Understanding OT Short Term Goals Short Term Goals Upper body dressin Lower body dressin OT Halfway Goals Csr Technician Goals Time Frame: Jun 11, 2020 Eating (QC): 6 Oral Hygiene (QC): 6 Toileting Hygiene (QC): 6 Shower/Bathe Self (QC): 6 Upper Body Dressing (QC): 3 Lower Body Dressing (QC): 6 On/Off Footwear (QC): 6 Additional Goals: 1-Demonstrate ADL Tasks, 2-Verbalize Understanding, 3-ImproveStrength/Matt 1=Demonstrate adherence to instructed precautions during ADL tasks. 2=Patient will verbalize/demonstrate understanding of assistive devices/modifications for ADL. 3=Patient will improve strength/tolerance for activity to enable patient to perform ADL's. OT Education/Plan Problem List/Assessment Assessment: Decreased Activ Tolerance, Decreased UE Strength, Impaired I ADL's, Impaired Self-Care Skills Discharge Recommendations Plan/Recommendations: Continue POC Treatment Plan/Plan of Care Patient would benefit from OT for education, treatment and training to promote independence in ADL's, mobility, safety and/or upper extremity function for ADL's. Plan of Care: ADL Retraining, Caregiver Training, Concurrent Therapy, Functional Mobility, Group Exercise/Act as Ind, UE Funct Exercise/Act Treatment Duration: Jun 11, 2020 Frequency: At least 5 of 7 days/Wk (IRF) Estimated Hrs Per Day: 1.5 hours per day Agreement: Yes Rehab Potential: Fair Time/GCodes Start Time: 09:15 Stop Time: 10:15 Total Time Billed (hr/min): 60 Billed Treatment Time 1, ADL 4 TIMOTHY BAKER OT Jun 03, 2020 10:32
--- NOTE | 2020-06-03 12:26 | Physical Therapy Daily Note ---
PT Daily Note-Current Subjective Pt sitting in recliner upon arrival. Pt agrees to PT. Pt is ALAT[place] even with hearing aids. Pain Numeric Pain Scale: 5-Moderate Pain Location Body Site: Back Pain Description: Ache Mental Status Patient Orientation: Person, Place, Time, Situation Transfers SCALE: Activities may be completed with or without assistive devices. 0-Vveultlybp-ptwjfnf completes the activity by him/herself with no assistance from a helper. 5-Set-up or Clean-up Assistance-helper sets up or cleans up; patient completes activity. [place] assists only prior to or following the activity. 4-Supervision or Touching Assistance-helper provides verbal cues and/or touching/steadying and/or contact guard assistance as patient completes activity. Assistance may be provided throughout the activity or intermittently. 3-Partial/Moderate Assistance-helper does LESS THAN HALF the effort. [place] lifts, holds or supports trunk or limbs, but provides less than half the effort. 2-Substantial/Maximal Assistance-helper does MORE THAN HALF the effort. [place] lifts or holds trunk or limbs and provides more than half the effort. 1-Rjczyudsb-ypxjdw does ALL the effort. Patient does none of the effort to complete the activity. Or, the assistance of 2 or more helpers is required for the patient to complete the activity. If activity was not attempted, code reason: 7-Patient Refused. 9-Not Applicable-not attempted and the patient did not perform the activity before the current illness, exacerbation or injury. 10-Not Attempted due to Environmental Limitations-(lack of equipment, weather restraints, etc.). 88-Not Attempted due to Medical Conditions or Safety Concerns. Sit to Stand (QC): 5 Toilet Transfer (QC): 5 Weight Bearing Full Weight Bearing Full Weight Bearing Gait Training Does the Patient Walk?: Yes Distance: 150' x2 Walk 10 feet (QC): 5 Walk 50 ft with 2 Turns(QC): 5 Walk 150 ft (QC): 5 Gait Persons Needed: 1 Gait Assistive Device: FWW Wheelchair Training Does the Pt Use a Wheelchair?: No Exercises Seated Therapy Exercises: Ankle pumps, Long arc quads, Hip flexion, Kicking activity, Glut set Seated Reps: 15 Standing: Hip Abduction, Heel/toe raises, Marching, Mini squats, Sit to Stand Standing Reps: 15 Treatments [id number]: TF to standing and amb. in hallway. Pt completes Seated Ex followed by short RB then Standing Ex at //bars. Pt amb. in hallway before returning to room to use BR and rest in recliner for lunch. All needs met, call light in hand. [id number]: HOTEL HOUSEMAN issues/reviews written HEP for Supine & Seated Ex. Pt completes Supine EX in bed. Pt is repositioned to comfort and resting at end of tx. All needs met, call light in hand. Assessment Current Status: Good Progress Pt is gaining strength, activity tolerance and independence of tasks. Pt reports wanting to DC by maybe Tuesday to be home with Sp for Anniversary next week. PT Short Term Goals Short Term Goals Time Frame: Jun 04, 2020 Roll Left & Right: 6 Sit to lyin Lying to sitting on side of be: 6 Sit to stand: 4 Chair/qes-zx-iaarp transfer: 4 Walk 10 feet: 4 Walk 50 feet with two turns: 4 Walk 150 feet: 4 PT Upholsterer Inside Goals Upholsterer Inside Goals PT Upholsterer Inside Goals Time Frame: Jun 18, 2020 Roll Left & Right (QC): 6 Sit to Lying (QC): 6 Lying-Sitting on Side/Bed(QC): 6 Sit to Stand (QC): 5 Chair/Ksr-ot-Wsnhd Xfer(QC): 5 Toilet Transfer (QC): 5 Car Transfer (QC): 5 Does the Patient Walk: Yes Walk 10 feet (QC): 5 Walk 50ft with 2 Turns (QC): 5 Walk 150 ft (QC): 5 Walking 10ft on Uneven Surface: 5 1 Step (curb) (QC): 4 4 Steps (QC): 4 12 Steps (QC): 88 Picking up an Object (QC): 4 Wheel 50 feet with 2 turns (QC: 9 Wheel 150 feet: 9 PT Plan Treatment/Plan Treatment Plan: Continue Plan of Care Treatment Plan: Education, Functional Activity Matt, Functional Strength, Group Therapy, Gait, Safety, Therapeutic Exercise, Transfers Treatment Duration: Jun 18, 2020 Frequency: At least 5 of 7 days/Wk (IRF) Estimated Hrs Per Day: 1.5 hours per day Patient and/or Family Agrees t: Yes Safety Risks/Education Patient Education: Issued Written HEP Teaching Recipient: Patient Teaching Methods: Discussion Response to Teaching: Verbalize Understanding Time/GCodes Time In: 1115 Time Out: 1400 Total Billed Treatment Time: 90 Total Billed Treatment [id number]: 1, GT (20m), FA (15m) & EX x2 (25m) [id number]: 1, EX x2 (30m) ALEXIA JANG HOTEL HOUSEMAN Jun 03, 2020 12:26
--- NOTE | 2020-06-03 13:17 | Occupational Ther Daily Note ---
OT Current Status-Daily Note Subjective Pt laying in bed, agreeable to OT tx. Pt reports the support of the bed on her back feels good. Pt reports she feels ready to discharge when team agrees, she has support at the living facility for aides if needed. ADL-Treatment Therapy Code Descriptions/Definitions Functional [place] Measure: 0=Not Assessed/NA 4=Minimal Assistance 1=Total Assistance 5=Supervision or Setup 2=Maximal Assistance 6=Modified [place] 3=Moderate Assistance 7=Complete IndependenceSCALE: Activities may be completed with or without assistive devices. 0-Hcqjihpisy-uzkqqwh completes the activity by him/herself with no assistance from a helper. 5-Set-up or Clean-up Assistance-helper sets up or cleans up; patient completes activity. [place] assists only prior to or following the activity. 4-Supervision or Touching Assistance-helper provides verbal cues and/or touching/steadying and/or contact guard assistance as patient completes activity. Assistance may be provided throughout the activity or intermittently. 3-Partial/Moderate Assistance-helper does LESS THAN HALF the effort. [place] lift s, holds or supports trunk or limbs, but provides less than half the effort. 2-Substantial/Maximal Assistance-helper does MORE THAN HALF the effort. [place] lifts or holds trunk or limbs and provides more than half the effort. 7-Bkixxmlmq-cruafj does ALL the effort. Patient does none of the effort to complete the activity. Or, the assistance of 2 or more helpers is required for the patient to complete the activity. If activity was not attempted, code reason: 7-Patient Refused. 9-Not Applicable-not attempted and the patient did not perform the activity before the current illness, exacerbation or injury. 10-Not Attempted due to Environmental Limitations-(lack of equipment, weather restraints, etc.). 88-Not Attempted due to Medical Conditions or Safety Concerns. Eating (QC): 6 (Pt reports independent with lunch.) Other Treatment Pt laying in bed, OT tx wtih focus on increasing BUE strength, functional activity tolerance, and fine motor coordination. Pt removed beads from moderate resistance theraputty, able to locate all beads without cues. Pt indicates this will help her be able to continue crocheting when she gets back home. Pt then placed x25, 1" pegs into foam pegboard. Pt held pegboard vertically in order to see the holes easier (due to decreased vision). Pt transferred supine to sit EOB, SBA, then sit to stand with SBA. Nursing staff present to assess pt for any sores/pressure spots. Pt returned to sit EOB, then back supine SBA. Post tx, pt laying in bed, call light in reach and all needs met. Education OT Patient Education: Correct positioning, Modified ADL techniques, Progress toward Goal/Update tx plan, Purpose of tx/functional activities Teaching Recipient: Patient Teaching Methods: Discussion Response to Teaching: Verbalize Understanding OT Short Term Goals Short Term Goals Upper body dressin Lower body dressin OT Care Home Goals Equipment Operating Engineer Goals Time Frame: Jun 11, 2020 Eating (QC): 6 Oral Hygiene (QC): 6 Toileting Hygiene (QC): 6 Shower/Bathe Self (QC): 6 Upper Body Dressing (QC): 3 Lower Body Dressing (QC): 6 On/Off Footwear (QC): 6 Additional Goals: 1-Demonstrate ADL Tasks, 2-Verbalize Understanding, 3- ImproveStrength/Matt 1=Demonstrate adherence to instructed precautions during ADL tasks. 2=Patient will verbalize/demonstrate understanding of assistive devices/modifications for ADL. 3=Patient will improve strength/tolerance for activity to enable patient to perform ADL's. OT Education/Plan Problem List/Assessment Assessment: Decreased Activ Tolerance, Decreased UE Strength, Impaired I ADL's, Impaired Self-Care Skills Discharge Recommendations Plan/Recommendations: Continue POC Treatment Plan/Plan of Care Patient would benefit from OT for education, treatment and training to promote independence in ADL's, mobility, safety and/or upper extremity function for ADL's. Plan of Care: ADL Retraining, Caregiver Training, Concurrent Therapy, Functional Mobility, Group Exercise/Act as Ind, UE Funct Exercise/Act Treatment Duration: Jun 11, 2020 Frequency: At least 5 of 7 days/Wk (IRF) Estimated Hrs Per Day: 1.5 hours per day Agreement: Yes Rehab Potential: Fair Time/GCodes Start Time: 13:00 Stop Time: 13:30 Total Time Billed (hr/min): 30 Billed Treatment Time 1, FA 2 TIMOTHY BAKER OT Jun 03, 2020 13:17
[2020-06-03 13:34] VITALS: BP 131/69
[2020-06-03] MEDS: CALCIUM CARB + VIT D 600 MG (CALCARB + D) TAB PO SCH (17:13)
[2020-06-03 17:29] VITALS: BP 138/67
[2020-06-03] MEDS: SIMvastatin 10 MG (ZOCOR) TAB PO SCH (20:47)
[2020-06-03] MEDS: LATANOPROST 0.005% (XALATAN) OPHTH SOLN 2.5 ML OU SCH (20:48)
[2020-06-04 05:45] VITALS: BP 167/79
[2020-06-04] MEDS: MULTIVIT W/MINERALS TAB (THERAGRAN M) PO SCH (05:54)
[2020-06-04] MEDS: OMEGA 3 (FISH OIL) 1000 MG CAP PO SCH ×2 (08:29→18:27)
[2020-06-04] MEDS: meTOprolol TARTRATE 25 MG (LOPRESSOR) TABLET PO SCH ×2 (08:29→21:02)
[2020-06-04] MEDS: IRON SUCROSE 200 MG/10 ML (VENOFER) VIAL IV SCH (08:29)
[2020-06-04] MEDS: PANTOPRAZOLE 20 MG TABLET (PROTONIX) PO SCH (08:29)
[2020-06-04] MEDS: KCL 10 MEQ TAB (MICRO K) PO SCH ×2 (08:30→18:27)
[2020-06-04] MEDS: DULoxetine 30 MG (CYMBALTA) CAP PO SCH (08:30)
[2020-06-04] MEDS: DOCUSATE SODIUM 100 MG (COLACE) CAP PO SCH ×2 (08:30→20:33)
[2020-06-04] MEDS: amLODIPine 5 MG (NORVASC) TAB PO SCH (08:30)
[2020-06-04] MEDS: ACETAMINOPHEN 500 MG TAB (TYLENOL) PO SCH ×3 (08:30→21:02)
[2020-06-04] MEDS: SENNA W/DOCUSATE (SENOKOT S) TABLET PO SCH ×2 (08:30→20:33)
[2020-06-04] MEDS: PREGABALIN 75 MG (LYRICA) CAP PO SCH ×2 (08:30→21:03)
[2020-06-04] MEDS: FERROUS SULF 325 MG (IRON) TAB PO SCH (08:31)
[2020-06-04] MEDS: polyethylene glycoL POWDER 17 GM (MIRALAX) PACK PO SCH ×2 (08:31→19:13)
[2020-06-04] MEDS: TOLTERODINE LA 4 MG (DETROL) CAP PO SCH (08:31)
[2020-06-04] MEDS: hydrALAZINE (APRESOLINE) 25 MG TAB PO SCH ×3 (08:31→21:03)
--- NOTE | 2020-06-04 09:25 | PM&R Progress Note ---
Subjective HPI/CC On Admission Date Seen by Provider: Jun 04, 2020 Time Seen by Provider: 11:30 Subjective/Events-last exam 06/04/20: Pt doing really well Bowels moved yesterday No issues Incontinent X1 Incision looks good 06/03/20: Pt doing very well DC soon per patient Her anniversary is Tuesday Bowels are moving very well IV iron infusions have really helped her 06/02/20: Pt doing really well Hgb 10.0 Continue on iron infusions WBC 13.4 Iron level was 18 06/01/20: Patient resting today Monitor closely Colace given Midline maintained 05/31/20: Patient doing well [place] look ok Moving well No pain reported BM 05/3105/30/20: Patient doing well BM+ Pain decreased Checked meds and labs Transfusion maintained and feels better Vit B12 tolerated well Iron infusions maintained 05/29/20: Patient doing well Hgb 7.0 so ordered iron infusion and 1 unit of blood due to paleness and fatigue level Received 1 unit of blood at [facility] Albumin 2.7 Improved BP with meds BM++ Midline will be placed Review of Systems General: Fatigue, Malaise Objective Exam Vital Signs Vital Signs Date Time Temp Pulse Resp B/P (MAP) Pulse Ox O2 Delivery O2 Flow Rate FiO2 06/05/20 05:03 37.1 81 18 162/67 (98) 94 Room Air Capillary Refill : General Appearance: No Apparent Distress, WD/WN, Chronically ill, Other (pale) HEENT: PERRL/EOMI, Normal ENT Inspection, Pharynx Normal Neck: Full Range of Motion, Normal Inspection, Non Tender, Supple, Carotid Bruit Respiratory: Chest Non Tender, Lungs Clear, Normal Breath Sounds, No Accessory Muscle Use, No Respiratory Distress Cardiovascular: Regular Rate, Rhythm, No Edema, No Gallop, No JVD, No Murmur, Normal Peripheral Pulses Gastrointestinal: Normal Bowel Sounds, No Organomegaly, No Pulsatile Mass, Non Tender, Soft Back: Normal Inspection, No CVA Tenderness, No Vertebral Tenderness Extremity: Normal Capillary Refill, Normal Inspection, Normal Range of Motion, Non Tender, No Calf Tenderness, No Pedal Edema Neurologic/Psychiatric: Alert, Oriented x3, Normal Mood/Affect, station engineer main line II-XII Norm as Tested, Abnormal Gait, Motor Weakness (generalized weakness 3/5 extremities) Skin: Normal Color, Warm/Dry Lymphatic: No Adenopathy Results/Procedures Lab Patient resulted labs reviewed. FIM Transfers Therapy Code Descriptions/Definitions Functional [place] Measure: 0=Not Assessed/NA 4=Minimal Assistance 1=Total Assistance 5=Supervision or Setup 2=Maximal Assistance 6=Modified [place] 3=Moderate Assistance 7=Complete IndependenceSCALE: Activities may be completed with or without assistive devices. 2-Scyurohzfm-gsovjgi completes the activity by him/herself with no assistance from a helper. 5-Set-up or Clean-up Assistance-helper sets up or cleans up; patient completes activity. [place] assists only prior to or following the activity. 4-Supervision or Touching Assistance-helper provides verbal cues and/or touching/steadying and/or contact guard assistance as patient completes activity. Assistance may be provided throughout the activity or intermittently. 3-Partial/Moderate Assistance-helper does LESS THAN HALF the effort. [place] lifts, holds or supports trunk or limbs, but provides less than half the effort. 2-Substantial/Maximal Assistance-helper does MORE THAN HALF the effort. [place] lifts or holds trunk or limbs and provides more than half the effort. 1-Wlwgxjbqx-gcjnyd does ALL the effort. Patient does none of the effort to complete the activity. Or, the assistance of 2 or more helpers is required for the patient to complete the activity. If activity was not attempted, code reason: 7-Patient Refused. 9-Not Applicable-not attempted and the patient did not perform the activity before the current illness, exacerbation or injury. 10-Not Attempted due to Environmental Limitations-(lack of equipment, weather restraints, etc.). 88-Not Attempted due to Medical Conditions or Safety Concerns. Roll Left to Right (QC): 5 Sit to Lying (QC): 5 Sit to Stand (QC): 5 Chair/Vqx-ug-Cwscv Xfer(QC): 5 Car Transfer (QC): 5 Gait Training Does the Patient Walk?: Yes Distance: 150' x2 Walk 10 feet (QC): 5 Walk 50 ft with 2 Turns(QC): 5 Walk 150 ft (QC): 5 Walking 10ft/uneven surface-QC: 4 Gait Persons Needed: 1 Gait Assistive Device: FWW Wheelchair Training Does the Pt Use a Wheelchair?: No Wheel 50 ft with 2 turns (QC): 9 Wheel 150 ft (QC): 9 Stair Training Stair Training: Handrails/: uses walker #of Steps: 1 1 Step (curb) (QC): 4 4 Steps (QC): 88 12 Steps (QC): 88 Stairs: Pattern: Step to Balance Picking up an Object (QC): 4 ADL-Treatment Eating (QC): 6 (Pt reports independent with lunch.) Oral Hygiene (QC): 4 (Supervision standing at sink.) Bathing Location: L Arm, R Arm, L Upper Leg, R Upper Leg, L Lower Leg (including foot), R Lower Leg (including foot), Chest, Abdomen, Buttocks, Perineal Area Shower/Bathe Self (QC): 4 (supervision, pt able to wash/dry all parts standing at GBs as needed) Upper Body Dressing (QC): 5 (set up, pt able to doff bra, don bra and conductor pullman shirt with increased time with fasteners) Lower Body Dressing (QC): 4 (supervision, pt able to doff/don pants and brief, using dressing stick as needed) On/Off Footwear (QC): 3 (Pt used dressing stick to doff socks with set up, able to don socks using sock aide, min A due to pt's 5th toe getting stuck on sock aide, and slight assist with orientation.) Toileting Hygiene (QC): 7 (Pt declined need to toilet.) Toilet Transfer (QC): 4 (CGA on/off toilet using GBs and FWW) Assessment/Plan Assessment and Plan Assess & Plan/Chief Complaint Assessment: Debility 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 HTN OOC Advanced age Anemia Acute blood loss Severe symptomatic anemia requiring 1 unit of blood 05/29/20 Plan: Monitor closely IRF Pain control BP control 05/29/20: Give 1 unit of blood today Iron infusion Monitor closely 05/30/20: Monitor closely Monitor hgb No pain 05/31/20: Monitor closely BP ok 06/01/20: Monitor BP Monitor for pain 06/02/20: Monitor for pain Iron infusions 06/03/20: Monitor hgb Monitor falls 06/04/20: DC planning Monitor for falls (1) Debility (2) Adenocarcinoma, colon (3) Cancer, metastatic (4) Hypertension (5) Anemia (6) Advanced age (7) History of sepsis (8) History of UTI CALVIN LAURA DO Jun 04, 2020 09:25
--- NOTE | 2020-06-04 10:43 | Occupational Ther Daily Note ---
OT Current Status-Daily Note Subjective Pt seated in recliner, agreeable to OT Tx. ADL-Treatment Therapy Code Descriptions/Definitions Functional [place] Measure: 0=Not Assessed/NA 4=Minimal Assistance 1=Total Assistance 5=Supervision or Setup 2=Maximal Assistance 6=Modified [place] 3=Moderate Assistance 7=Complete IndependenceSCALE: Activities may be completed with or without assistive devices. 4-[place]-smqxggy completes the activity by him/herself with no assistance from a helper. 5-Set-up or Clean-up Assistance-helper sets up or cleans up; patient completes activity. [place] assists only prior to or following the activity. 4-Supervision or Touching Assistance-helper provides verbal cues and/or touching/steadying and/or contact guard assistance as patient completes activity. Assistance may be provided throughout the activity or intermittently. 3-Partial/Moderate Assistance-helper does LESS THAN HALF the effort. [place] lifts, holds or supports trunk or limbs, but provides less than half the effort. 2-Substantial/Maximal Assistance-helper does MORE THAN HALF the effort. [place] lifts or holds trunk or limbs and provides more than half the effort. 7-Azbiroxsf-arpuuc does ALL the effort. Patient does none of the effort to complete the activity. Or, the assistance of 2 or more helpers is required for the patient to complete the activity. If activity was not attempted, code reason: 7-Patient Refused. 9-Not Applicable-not attempted and the patient did not perform the activity before the current illness, exacerbation or injury. 10-Not Attempted due to Environmental Limitations-(lack of equipment, weather restraints, etc.). 88-Not Attempted due to Medical Conditions or Safety Concerns. Eating (QC): 6 (Per pt report) Oral Hygiene (QC): 6 (IND seated at sink) Shower/Bathe Self (QC): 4 (Supervision, pt completed sponge bath seated at sink.) Upper Body Dressing (QC): 5 (set up) Lower Body Dressing (QC): 5 (set up) On/Off Footwear: 5 (set up using AE as needed) Toileting Hygiene (QC): 4 (SBA, pt able to complete clothing management and hygiene) Toilet Transfer (QC): 4 (SBA on/off toilet using GBs.) Other Treatment Pt seated in recliner, used FWW to transfer into bathroom and onto toilet with SBA. Pt completed toileting, then transferred to chair at sink to complete sponge bath, dressing, and oral care as outlined above. Pt took rest breaks as needed with task. She also completed hair brushing independently seated at sink. In order to increase functional mobility and activity tolerance, pt performed functional mobility around [facility] common area, then returned to her room, used FWW with SBA. Pt requests to go to bed, transferring supine independently. Post tx, pt laying in bed, call light in reach and all needs met. Education OT Patient Education: Correct positioning, Modified ADL techniques, Progress toward Goal/Update tx plan, Purpose of tx/functional activities Teaching Recipient: Patient Teaching Methods: Discussion Response to Teaching: Verbalize Understanding OT Short Term Goals Short Term Goals Upper body dressin Lower body dressin OT Residential Goals Cleaners Goals Time Frame: Jun 11, 2020 Eating (QC): 6 Oral Hygiene (QC): 6 Toileting Hygiene (QC): 6 Shower/Bathe Self (QC): 6 Upper Body Dressing (QC): 3 Lower Body Dressing (QC): 6 On/Off Footwear (QC): 6 Additional Goals: 1-Demonstrate ADL Tasks, 2-Verbalize Understanding, 3- ImproveStrength/Matt 1=Demonstrate adherence to instructed precautions during ADL tasks. 2=Patient will verbalize/demonstrate understanding of assistive devices/modifications for ADL. 3=Patient will improve strength/tolerance for activity to enable patient to perform ADL's. OT Education/Plan Problem List/Assessment Assessment: Decreased Activ Tolerance, Decreased UE Strength, Impaired I ADL's, Impaired Self-Care Skills, Restricted Funct UE ROM Discharge Recommendations Plan/Recommendations: Continue POC Treatment Plan/Plan of Care Patient would benefit from OT for education, treatment and training to promote independence in ADL's, mobility, safety and/or upper extremity function for ADL's. Plan of Care: ADL Retraining, Caregiver Training, Concurrent Therapy, Functional Mobility, Group Exercise/Act as Ind, UE Funct Exercise/Act Treatment Duration: Jun 11, 2020 Frequency: At least 5 of 7 days/Wk (IRF) Estimated Hrs Per Day: 1.5 hours per day Agreement: Yes Rehab Potential: Fair Time/GCodes Start Time: 09:30 Stop Time: 10:30 Total Time Billed (hr/min): 60 Billed Treatment Time 1, ADL 3 (50'), FA (10') TIMOTHY BAKER OT Jun 04, 2020 10:43
--- NOTE | 2020-06-04 12:13 | Physical Therapy Daily Note ---
PT Daily Note-Current Subjective Pt sitting up in recliner upon arrival. Pt agrees to PT. Pain Location: No Pain Reported Mental Status Patient Orientation: Person, Place, Time, Situation Transfers SCALE: Activities may be completed with or without assistive devices. 6-Vgpqtpqibo-utmulwy completes the activity by him/herself with no assistance from a helper. 5-Set-up or Clean-up Assistance-helper sets up or cleans up; patient completes activity. [place] assists only prior to or following the activity. 4-Supervision or Touching Assistance-helper provides verbal cues and/or touching/steadying and/or contact guard assistance as patient completes activity. Assistance may be provided throughout the activity or intermittently. 3-Partial/Moderate Assistance-helper does LESS THAN HALF the effort. [place] lifts, holds or supports trunk or limbs, but provides less than half the effort. 2-Substantial/Maximal Assistance-helper does MORE THAN HALF the effort. [place] lifts or holds trunk or limbs and provides more than half the effort. 7-Mmzkfmhkk-aodkvd does ALL the effort. Patient does none of the effort to complete the activity. Or, the assistance of 2 or more helpers is required for the patient to complete the activity. If activity was not attempted, code reason: 7-Patient Refused. 9-Not Applicable-not attempted and the patient did not perform the activity before the current illness, exacerbation or injury. 10-Not Attempted due to Environmental Limitations-(lack of equipment, weather restraints, etc.). 88-Not Attempted due to Medical Conditions or Safety Concerns. Sit to Stand (QC): 6 Toilet Transfer (QC): 6 Weight Bearing Full Weight Bearing Full Weight Bearing Gait Training Does the Patient Walk?: Yes Distance: 150' x2 Walk 10 feet (QC): 6 Walk 50 ft with 2 Turns(QC): 6 Walk 150 ft (QC): 6 Gait Persons Needed: 1 Gait Assistive Device: FWW Wheelchair Training Does the Pt Use a Wheelchair?: No Exercises Supine Ex: Ankle pumps, Quad Set, Heel Slides, Hip abd/add Standing: Hamstring curls, Heel/toe raises, Marching, Mini squats, Sit to Stand, Weight shifts Standing Reps: 15 NuStep Minutes: 10 NuStep Workload: 4 Treatments [id number]: TF to standing then amb. in hallway. Pt uses NuStep then short RB before Standing EX at //bars. Pt takes short RB then amb. back to room, using BR then TF to Supine in bed. Pt resting and enjoying lunch at end of tx. All needs met, call light in hand. [id number]: Pt completes Supine EX in bed with RB as needed. Pt resting in bed at end of tx. Pt declines need for BR. All needs met, call light in hand. Assessment Current Status: Good Progress Pt fatigues needing occasional rest breaks but recovers quickly. PT Short Term Goals Short Term Goals Time Frame: Jun 04, 2020 Roll Left & Right: 6 Sit to lyin Lying to sitting on side of be: 6 Sit to stand: 4 Chair/lod-pa-snoyi transfer: 4 Walk 10 feet: 4 Walk 50 feet with two turns: 4 Walk 150 feet: 4 PT Shelter Goals Shelter Goals PT [place] Goals Time Frame: Jun 18, 2020 Roll Left & Right (QC): 6 Sit to Lying (QC): 6 Lying-Sitting on Side/Bed(QC): 6 Sit to Stand (QC): 5 Chair/Hcw-cj-Cmhrf Xfer(QC): 5 Toilet Transfer (QC): 5 Car Transfer (QC): 5 Does the Patient Walk: Yes Walk 10 feet (QC): 5 Walk 50ft with 2 Turns (QC): 5 Walk 150 ft (QC): 5 Walking 10ft on Uneven Surface: 5 1 Step (curb) (QC): 4 4 Steps (QC): 4 12 Steps (QC): 88 Picking up an Object (QC): 4 Wheel 50 feet with 2 turns (QC: 9 Wheel 150 feet: 9 PT Plan Problem List Problem List: Activity Tolerance Treatment/Plan Treatment Plan: Continue Plan of Care Treatment Plan: Education, Functional Activity Matt, Functional Strength, Group Therapy, Gait, Safety, Therapeutic Exercise, Transfers Treatment Duration: Jun 18, 2020 Frequency: At least 5 of 7 days/Wk (IRF) Estimated Hrs Per Day: 1.5 hours per day Patient and/or Family Agrees t: Yes Safety Risks/Education Patient Education: Safety Issues Teaching Recipient: Patient Teaching Methods: Discussion Response to Teaching: Verbalize Understanding Time/GCodes Time In: 1100 Time Out: 1400 Total Billed Treatment Time: 90 Total Billed Treatment [id number]: 1, GT (20m), EX x2 (25m) & FA (15m) [id number]: 1, EX x2 (30m) ALEXIA JANG MANAGER COUNCIL Jun 04, 2020 12:13
--- NOTE | 2020-06-04 13:22 | Occupational Ther Daily Note ---
OT Current Status-Daily Note Subjective Pt laying in bed, agreeable to OT tx. Pt indicates her back feels good being supported on the bed. ADL-Treatment Therapy Code Descriptions/Definitions Functional [place] Measure: 0=Not Assessed/NA 4=Minimal Assistance 1=Total Assistance 5=Supervision or Setup 2=Maximal Assistance 6=Modified [place] 3=Moderate Assistance 7=Complete IndependenceSCALE: Activities may be completed with or without assistive devices. 0-Xdaejvwuad-kqfrqmi completes the activity by him/herself with no assistance from a helper. 5-Set-up or Clean-up Assistance-helper sets up or cleans up; patient completes activity. [place] assists only prior to or following the activity. 4-Supervision or Touching Assistance-helper provides verbal cues and/or touching/steadying and/or contact guard assistance as patient completes activity. Assistance may be provided throughout the activity or intermittently. 3-Partial/Moderate Assistance-helper does LESS THAN HALF the effort. [place] lifts, holds or supports trunk or limbs, but provides less than half the effort. 2-Substantial/Maximal Assistance-helper does MORE THAN HALF the effort. [place] lifts or holds trunk or limbs and provides more than half the effort. 1-Ahxcslydb-vtpgss does ALL the effort. Patient does none of the effort to complete the activity. Or, the assistance of 2 or more helpers is required for the patient to complete the activity. If activity was not attempted, code reason: 7-Patient Refused. 9-Not Applicable-not attempted and the patient did not perform the activity before the current illness, exacerbation or injury. 10-Not Attempted due to Environmental Limitations-(lack of equipment, weather restraints, etc.). 88-Not Attempted due to Medical Conditions or Safety Concerns. Other Treatment Pt laying in bed. OT tx with focus on increasing BUE fine motor streng th/coordination and activity tolerance. Pt first removed beads from moderate resistance theraputty, pt able to locate all beads without cues. She then completed graded clothes pins tasks (1-5 lbs), first placing/removing with her R hand, then L. Pt took rest breaks during tx as needed. Pt's nurse present, providing pt with medicine, pt able to take pills independently. Post tx, pt laying in bed, call light in reach and all needs met. Education OT Patient Education: Correct positioning, Energy conservation, Exercise program, Modified ADL techniques, Progress toward Goal/Update tx plan, Purpose of tx/functional activities Teaching Recipient: Patient Teaching Methods: Discussion Response to Teaching: Verbalize Understanding OT Short Term Goals Short Term Goals Upper body dressin Lower body dressin OT Glass Sander Belt Goals Retirement Goals Time Frame: Jun 11, 2020 Eating (QC): 6 Oral Hygiene (QC): 6 Toileting Hygiene (QC): 6 Shower/Bathe Self (QC): 6 Upper Body Dressing (QC): 3 Lower Body Dressing (QC): 6 On/Off Footwear (QC): 6 Additional Goals: 1-Demonstrate ADL Tasks, 2-Verbalize Understanding, 3- ImproveStrength/Matt 1=Demonstrate adherence to instructed precautions during ADL tasks. 2=Patient will verbalize/demonstrate understanding of assistive device s/modifications for ADL. 3=Patient will improve strength/tolerance for activity to enable patient to perform ADL's. OT Education/Plan Problem List/Assessment Assessment: Decreased Activ Tolerance, Decreased UE Strength, Impaired I ADL's, Impaired Self-Care Skills, Restricted Funct UE ROM Discharge Recommendations Plan/Recommendations: Continue POC Treatment Plan/Plan of Care Patient would benefit from OT for education, treatment and training to promote independence in ADL's, mobility, safety and/or upper extremity function for ADL's. Plan of Care: ADL Retraining, Caregiver Training, Concurrent Therapy, Functional Mobility, Group Exercise/Act as Ind, UE Funct Exercise/Act Treatment Duration: Jun 11, 2020 Frequency: At least 5 of 7 days/Wk (IRF) Estimated Hrs Per Day: 1.5 hours per day Agreement: Yes Rehab Potential: Fair Time/GCodes Start Time: 13:00 Stop Time: 13:30 Total Time Billed (hr/min): 30 Billed Treatment Time 1, FA 2 TIMOTHY BAKER OT Jun 04, 2020 13:22
[2020-06-04 18:09] VITALS: BP 140/80
[2020-06-04] MEDS: CALCIUM CARB + VIT D 600 MG (CALCARB + D) TAB PO SCH (18:27)
[2020-06-04] MEDS: SIMvastatin 10 MG (ZOCOR) TAB PO SCH (21:03)
[2020-06-04] MEDS: LATANOPROST 0.005% (XALATAN) OPHTH SOLN 2.5 ML OU SCH (21:03)
[2020-06-05 05:03] VITALS: BP 162/67
[2020-06-05] MEDS ORDERED: HYDR-3923 PO (06:01)
[2020-06-05] MEDS ORDERED: TRAM50TA3 PO (06:01)
[2020-06-05] MEDS ORDERED: AMLO-250 PO (06:01)
[2020-06-05] MEDS ORDERED: POTA10TA6 PO (06:01)
--- NOTE | 2020-06-05 06:03 | D/C HH Face to Face Order ---
D/C Face to Face Orders Reconcile Patient Problems Problems Reviewed?: Yes Instructions for Patient Home Health Patient Instructions/FollowUp: PCP 1 week Physician to follow Patient: PCP Discharge Diet for Home: No Restrictions Patient Problems: s/p cecal mass resection Goals for Patient: [place] Patient Data-Allergies,Ht & Wt Patient Allergies: Coded Allergies: clarithromycin (Verified Allergy, Unknown, 08/18/18) Uncoded Allergies: PENICILLIN (Allergy, Unknown, 08/18/18) Height (Feet): 5 Height (Inches): 3.00 Weight (Pounds): 180 Home Health Need/Face to Face Date of Face to Face: Jun 05, 2020 Clinical Findings: Generalized weakness and fatigue, Instability, Muscle weakness, Unsteady gait I have seen Pt vvcd-fl-ubks: Yes Discharged To: Home Diagnosis/Conditions: s/p cecal mass resection Patient is Homebound due to: Thony fall risk due to instabilty, Muscle weakness Homebound Status Due to the above stated illness, injury or surgical procedure (medical condition or diagnosis) and associated clinical findings, the patient is homebound because of his/her inability to leave home except with aid of a supportive device and/or person AND leaving the home requires a considerable and taxing effort or is medically contraindicated. Pt req the following assistanc: Walker Home Health Nursing Orders Home Health Services Order: Yard Engineer-Evaluate & Treat, Physical Therapy-Evaluate & Treat Home Health Infusion Therapy Line Start Date: May 29, 2020 Certify Stmt I certify that this patient is under my care and that I, a nurse practitioner or a physician; a assistant activities director working with me, had a face to face encounter that - meets the physician face to face encounter requirements with this patient as dated. CALVIN LAURA DO Jun 05, 2020 06:02
[2020-06-05] MEDS: MULTIVIT W/MINERALS TAB (THERAGRAN M) PO SCH (06:29)
[2020-06-05] MEDS: KCL 10 MEQ TAB (MICRO K) PO SCH ×2 (07:27→18:16)
[2020-06-05] MEDS: FERROUS SULF 325 MG (IRON) TAB PO SCH (07:27)
[2020-06-05] MEDS: amLODIPine 5 MG (NORVASC) TAB PO SCH (07:28)
[2020-06-05] MEDS: OMEGA 3 (FISH OIL) 1000 MG CAP PO SCH (07:28)
[2020-06-05] MEDS: meTOprolol TARTRATE 25 MG (LOPRESSOR) TABLET PO SCH ×2 (07:28→21:17)
[2020-06-05] MEDS: ACETAMINOPHEN 500 MG TAB (TYLENOL) PO SCH ×3 (07:28→21:18)
[2020-06-05] MEDS: PREGABALIN 75 MG (LYRICA) CAP PO SCH ×2 (07:28→21:17)
[2020-06-05] MEDS: TOLTERODINE LA 4 MG (DETROL) CAP PO SCH (07:28)
[2020-06-05] MEDS: hydrALAZINE (APRESOLINE) 25 MG TAB PO SCH ×3 (07:28→21:17)
[2020-06-05] MEDS: PANTOPRAZOLE 20 MG TABLET (PROTONIX) PO SCH (07:28)
[2020-06-05] MEDS: DULoxetine 30 MG (CYMBALTA) CAP PO SCH (07:29)
[2020-06-05] MEDS: polyethylene glycoL POWDER 17 GM (MIRALAX) PACK PO SCH ×2 (07:30→21:25)
[2020-06-05] MEDS: DOCUSATE SODIUM 100 MG (COLACE) CAP PO SCH ×2 (07:30→21:25)
[2020-06-05] MEDS: SENNA W/DOCUSATE (SENOKOT S) TABLET PO SCH ×2 (07:30→21:25)
--- NOTE | 2020-06-05 10:07 | Physical Therapy Daily Note ---
PT Daily Note-Current Subjective Pt laying Supine in bed. Pt agrees to PT for QC scoring items for DC tomorrow. Pain Location: No Pain Reported Mental Status Patient Orientation: Person, Place, Time, Situation Transfers SCALE: Activities may be completed with or without assistive devices. 9-Sfgatjjkpf-cdkcybr completes the activity by him/herself with no assistance from a helper. 5-Set-up or Clean-up Assistance-helper sets up or cleans up; patient completes activity. [place] assists only prior to or following the activity. 4-Supervision or Touching Assistance-helper provides verbal cues and/or touching/steadying and/or contact guard assistance as patient completes activity. Assistance may be provided throughout the activity or intermittently. 3-Partial/Moderate Assistance-helper does LESS THAN HALF the effort. [place] lifts, holds or supports trunk or limbs, but provides less than half the effort. 2-Substantial/Maximal Assistance-helper does MORE THAN HALF the effort. [place] l ifts or holds trunk or limbs and provides more than half the effort. 7-Hrwvmkzhs-iyrhnw does ALL the effort. Patient does none of the effort to complete the activity. Or, the assistance of 2 or more helpers is required for the patient to complete the activity. If activity was not attempted, code reason: 7-Patient Refused. 9-Not Applicable-not attempted and the patient did not perform the activity before the current illness, exacerbation or injury. 10-Not Attempted due to Environmental Limitations-(lack of equipment, weather restraints, etc.). 88-Not Attempted due to Medical Conditions or Safety Concerns. Roll Left & Right (QC): 6 Sit to Lying (QC): 6 Lying to Sitting/Side of Bed(Q: 6 Sit to Stand (QC): 6 Chair/Xnq-jk-Hipou Xfer(QC): 6 Toilet Transfer (QC): 6 Car Transfer (QC): 6 Weight Bearing Full Weight Bearing Full Weight Bearing Gait Training Does the Patient Walk?: Yes Distance: 150, 200' Walk 10 feet (QC): 6 Walk 50 ft with 2 Turns(QC): 6 Walk 150 ft (QC): 6 Walking 10ft/uneven surface-QC: 6 Gait Persons Needed: 1 Gait Assistive Device: FWW Wheelchair Training Does the Pt Use a Wheelchair?: No Stair Training Stair Training: Handrails/: 1 handrail #of Steps: 4 1 Step (curb) (QC): 6 4 Steps (QC): 6 12 Steps (QC): 7 Stairs: Pattern: Step to Balance Picking up an Object (QC): 7 Special Test Comments Pt reports using canal structure operator at [facility] and feels comfortable using it. Exercises Standing: Hip Abduction, Hamstring curls, Heel/toe raises, Sit to Stand Standing Reps: 12 NuStep Minutes: 15 NuStep Workload: 4 Treatments 800-900: Pt completes QC scoring items listed above as well as NuStep before returning to room to rest at end of tx. Pt is resting in bed with all needs met, call light in hand. [id number]: TF from bed to standing then amb to BR. Pt then amb. in hallway and completes Standing EX at //bars. Pt returns to room to rest in bed with all needs met, call light in hand. Assessment Current Status: Good Progress Pt takes RB as needed for fatigue. Pt has gained strength and activity tolerance for activities. PT Short Term Goals Short Term Goals Time Frame: Jun 04, 2020 Roll Left & Right: 6 Sit to lyin Lying to sitting on side of be: 6 Sit to stand: 4 Chair/itj-mm-vztrz transfer: 4 Walk 10 feet: 4 Walk 50 feet with two turns: 4 Walk 150 feet: 4 PT Mcfp Goals Mcfp Goals PT Braille Typist Goals Time Frame: Jun 18, 2020 Roll Left & Right (QC): 6 Sit to Lying (QC): 6 Lying-Sitting on Side/Bed(QC): 6 Sit to Stand (QC): 5 Chair/Xol-ag-Mdgna Xfer(QC): 5 Toilet Transfer (QC): 5 Car Transfer (QC): 5 Does the Patient Walk: Yes Walk 10 feet (QC): 5 Walk 50ft with 2 Turns (QC): 5 Walk 150 ft (QC): 5 Walking 10ft on Uneven Surface: 5 1 Step (curb) (QC): 4 4 Steps (QC): 4 12 Steps (QC): 88 Picking up an Object (QC): 4 Wheel 50 feet with 2 turns (QC: 9 Wheel 150 feet: 9 PT Plan Treatment/Plan Treatment Plan: Continue Plan of Care Treatment Plan: Education, Functional Activity Matt, Functional Strength, Group Therapy, Gait, Safety, Therapeutic Exercise, Transfers Treatment Duration: Jun 18, 2020 Frequency: At least 5 of 7 days/Wk (IRF) Estimated Hrs Per Day: 1.5 hours per day Patient and/or Family Agrees t: Yes Safety Risks/Education Patient Education: Steps, Correct Positioning Teaching Recipient: Patient Teaching Methods: Discussion Response to Teaching: Verbalize Understanding Time/GCodes Time In: 800 Time Out: 1335 Total Billed Treatment Time: 95 Total Billed Treatment 800-900: 1, GT (15m) & EX (15m) & FA x2 (30m) [id number]: 1, FA (15m) & EX (20m) ALEXIA JANG PTA Jun 05, 2020 10:07
--- NOTE | 2020-06-05 10:25 | PM&R Progress Note ---
Subjective HPI/CC On Admission Date Seen by Provider: Jun 05, 2020 Time Seen by Provider: 10:30 Subjective/Events-last exam 06/05/20: DC tomorrow Patient doing well No pain reported 06/04/20: Pt doing really well Bowels moved yesterday No issues Incontinent X1 Incision looks good 06/03/20: Pt doing very well DC soon per patient Her anniversary is Tuesday Bowels are moving very well IV iron infusions have really helped her 06/02/20: Pt doing really well Hgb 10.0 Continue on iron infusions WBC 13.4 Iron level was 18 06/01/20: Patient resting today Monitor closely Colace given Midline maintained 05/31/20: Patient doing well [place] look ok Moving well No pain reported BM 05/3105/30/20: Patient doing well BM+ Pain decreased Checked meds and labs Transfusion maintained and feels better Vit B12 tolerated well Iron infusions maintained 05/29/20: Patient doing well Hgb 7.0 so ordered iron infusion and 1 unit of blood due to paleness and fatigue level Received 1 unit of blood at [facility] Albumin 2.7 Improved BP with meds BM++ Midline will be placed Review of Systems General: Fatigue, Malaise Objective Exam Vital Signs Vital Signs Date Time Temp Pulse Resp B/P (MAP) Pulse Ox O2 Delivery O2 Flow Rate FiO2 06/05/20 21:15 86 16 145/72 (96) 94 Room Air 06/05/20 16:23 36.7 Capillary Refill : General Appearance: No Apparent Distress, WD/WN, Chronically ill, Other (pale) HEENT: PERRL/EOMI, Normal ENT Inspection, Pharynx Normal Neck: Full Range of Motion, Normal Inspection, Non Tender, Supple, Carotid Bruit Respiratory: Chest Non Tender, Lungs Clear, Normal Breath Sounds, No Accessory Muscle Use, No Respiratory Distress Cardiovascular: Regular Rate, Rhythm, No Edema, No Gallop, No JVD, No Murmur, Normal Peripheral Pulses Gastrointestinal: Normal Bowel Sounds, No Organomegaly, No Pulsatile Mass, Non Tender, Soft Back: Normal Inspection, No CVA Tenderness, No Vertebral Tenderness Extremity: Normal Capillary Refill, Normal Inspection, Normal Range of Motion, Non Tender, No Calf Tenderness, No Pedal Edema Neurologic/Psychiatric: Alert, Oriented x3, Normal Mood/Affect, land lease information clerk II-XII Norm as Tested, Abnormal Gait, Motor Weakness (generalized weakness 3/5 extremities) Skin: Normal Color, Warm/Dry Lymphatic: No Adenopathy Results/Procedures Lab Patient resulted labs reviewed. FIM Transfers Therapy Code Descriptions/Definitions Functional [place] Measure: 0=Not Assessed/NA 4=Minimal Assistance 1=Total Assistance 5=Supervision or Setup 2=Maximal Assistance 6=Modified [place] 3=Moderate Assistance 7=Complete IndependenceSCALE: Activities may be completed with or without assistive devices. 0-Qacaqzhpxt-ucqsdfy completes the activity by him/herself with no assistance from a helper. 5-Set-up or Clean-up Assistance-helper sets up or cleans up; patient completes activity. [place] assists only prior to or following the activity. 4-Supervision or Touching Assistance-helper provides verbal cues and/or touching/steadying and/or contact guard assistance as patient completes activity. Assistance may be provided throughout the activity or intermittently. 3-Partial/Moderate Assistance-helper does LESS THAN HALF the effort. [place] lifts, holds or supports trunk or limbs, but provides less than half the effort. 2-Substantial/Maximal Assistance-helper does MORE THAN HALF the effort. [place] lifts or holds trunk or limbs and provides more than half the effort. 8-Qsurflyfv-kljwea does ALL the effort. Patient does none of the effort to complete the activity. Or, the assistance of 2 or more helpers is required for the patient to complete the activity. If activity was not attempted, code reason: 7-Patient Refused. 9-Not Applicable-not attempted and the patient did not perform the activity be fore the current illness, exacerbation or injury. 10-Not Attempted due to Environmental Limitations-(lack of equipment, weather restraints, etc.). 88-Not Attempted due to Medical Conditions or Safety Concerns. Roll Left to Right (QC): 6 Sit to Lying (QC): 6 Sit to Stand (QC): 6 Chair/Qly-ep-Ovbsk Xfer(QC): 6 Car Transfer (QC): 6 Gait Training Does the Patient Walk?: Yes Distance: 150, 200' Walk 10 feet (QC): 6 Walk 50 ft with 2 Turns(QC): 6 Walk 150 ft (QC): 6 Walking 10ft/uneven surface-QC: 6 Gait Persons Needed: 1 Gait Assistive Device: FWW Wheelchair Training Does the Pt Use a Wheelchair?: No Wheel 50 ft with 2 turns (QC): 9 Wheel 150 ft (QC): 9 Stair Training Stair Training: Handrails/: 1 handrail #of Steps: 4 1 Step (curb) (QC): 6 4 Steps (QC): 6 12 Steps (QC): 7 Stairs: Pattern: Step to Balance Picking up an Object (QC): 7 ADL-Treatment Eating (QC): 6 (Per pt report) Oral Hygiene (QC): 6 (IND seated at sink) Bathing Location: L Arm, R Arm, L Upper Leg, R Upper Leg, L Lower Leg (including foot), R Lower Leg (including foot), Chest, Abdomen, Buttocks, Perineal Area Shower/Bathe Self (QC): 4 (Supervision, pt completed sponge bath seated at sink.) Upper Body Dressing (QC): 5 (set up) Lower Body Dressing (QC): 5 (set up) On/Off Footwear (QC): 5 (set up using AE as needed) Toileting Hygiene (QC): 4 (SBA, pt able to complete clothing management and hygiene) Toilet Transfer (QC): 4 (SBA on/off toilet using GBs.) Assessment/Plan Assessment and Plan Assess & Plan/Chief Complaint Assessment: Debility 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 HTN OOC Advanced age Anemia Acute blood loss Severe symptomatic anemia requiring 1 unit of blood 05/29/20 Plan: Monitor closely IRF Pain control BP control 05/29/20: Give 1 unit of blood today Iron infusion Monitor closely 05/30/20: Monitor closely Monitor hgb No pain 05/31/20: Monitor closely BP ok 06/01/20: Monitor BP Monitor for pain 06/02/20: Monitor for pain Iron infusions 06/03/20: Monitor hgb Monitor falls 06/04/20: DC planning Monitor for falls 06/05/20: DC tomorrow Monitor BP (1) Debility (2) Adenocarcinoma, colon (3) Cancer, metastatic (4) Hypertension (5) Anemia (6) Advanced age (7) History of sepsis (8) History of UTI CALVIN LAURA DO Jun 05, 2020 10:25
--- NOTE | 2020-06-05 10:28 | Occupational Ther Daily Note ---
OT Current Status-Daily Note Subjective Pt laying in bed, agreeable to OT tx. ADL-Treatment Therapy Code Descriptions/Definitions Functional [place] Measure: 0=Not Assessed/NA 4=Minimal Assistance 1=Total Assistance 5=Supervision or Setup 2=Maximal Assistance 6=Modified [place] 3=Moderate Assistance 7=Complete IndependenceSCALE: Activities may be completed with or without assistive devices. 6-Rtllufbnsy-wtldogd completes the activity by him/herself with no assistance from a helper. 5-Set-up or Clean-up Assistance-helper sets up or cleans up; patient completes activity. [place] assists only prior to or following the activity. 4-Supervision or Touching Assistance-helper provides verbal cues and/or touching/steadying and/or contact guard assistance as patient completes activity. Assistance may be provided throughout the activity or intermittently. 3-Partial/Moderate Assistance-helper does LESS THAN HALF the effort. [place] lifts, holds or supports trunk or limbs, but provides less than half the effort. 2-Substantial/Maximal Assistance-helper does MORE THAN HALF the effort. [place] lifts or holds trunk or limbs and provides more than half the effort. 6-Dlahnehtr-qwyyks does ALL the effort. Patient does none of the effort to com plete the activity. Or, the assistance of 2 or more helpers is required for the patient to complete the activity. If activity was not attempted, code reason: 7-Patient Refused. 9-Not Applicable-not attempted and the patient did not perform the activity before the current illness, exacerbation or injury. 10-Not Attempted due to Environmental Limitations-(lack of equipment, weather restraints, etc.). 88-Not Attempted due to Medical Conditions or Safety Concerns. Eating (QC): 6 (Per pt report) Oral Hygiene (QC): 6 (IND standing at sink) Shower/Bathe Self (QC): 5 (set up, pt able to wash/dry all parts seated on SC, standing at GBs as needed) Upper Body Dressing (QC): 5 Lower Body Dressing (QC): 5 On/Off Footwear: 5 (set up using dressing stick and sock aide.) Toileting Hygiene (QC): 6 (IND, pt managed clothing and performed hygiene) Toilet Transfer (QC): 6 Other Treatment Pt laying in bed, transferred supine to sit EOB, then used FWW to ambulate into bathroom and onto toilet. Pt completed toileting, then transferred to SC to doff clothes and complete shower. Pt transferred to chair to don clothes. While donning clothes, pt had urge to urinate, using FWW to transfer to toilet. After toileting, pt transferred back to chair to finish dressing. Pt stood at sink to complete oral care and hair brushing. Pt took rest breaks as needed with ADLs. Pt used FWW to transfer back to bed. Post tx, pt laying in bed, call light in reach and all needs met. Education OT Patient Education: Correct positioning, Energy conservation, Modified ADL techniques, Progress toward Goal/Update tx plan, Purpose of tx/functional activities Teaching Recipient: Patient Teaching Methods: Discussion Response to Teaching: Verbalize Understanding OT Short Term Goals Short Term Goals Upper body dressin Lower body dressin OT Frame Stylist Goals Mcfp Goals Time Frame: Jun 11, 2020 Eating (QC): 6 (met) Oral Hygiene (QC): 6 (met) Toileting Hygiene (QC): 6 (met) Shower/Bathe Self (QC): 6 (not met, set up) Upper Body Dressing (QC): 3 (met) Lower Body Dressing (QC): 6 (not met, set up) On/Off Footwear (QC): 6 (not met, set up) Additional Goals: 1-Demonstrate ADL Tasks, 2-Verbalize Understanding, 3- ImproveStrength/Matt 1=Demonstrate adherence to instructed precautions during ADL tasks. 2=Patient will verbalize/demonstrate understanding of assistive d evices/modifications for ADL. 3=Patient will improve strength/tolerance for activity to enable patient to perform ADL's. OT Education/Plan Problem List/Assessment Assessment: Decreased Activ Tolerance, Decreased UE Strength, Impaired I ADL's, Impaired Self-Care Skills Discharge Recommendations Plan/Recommendations: Continue POC Treatment Plan/Plan of Care Patient would benefit from OT for education, treatment and training to promote independence in ADL's, mobility, safety and/or upper extremity function for ADL's. Plan of Care: ADL Retraining, Caregiver Training, Concurrent Therapy, Functional Mobility, Group Exercise/Act as Ind, UE Funct Exercise/Act Treatment Duration: Jun 11, 2020 Frequency: At least 5 of 7 days/Wk (IRF) Estimated Hrs Per Day: 1.5 hours per day Agreement: Yes Rehab Potential: Fair Time/GCodes Start Time: 09:15 Stop Time: 10:15 Total Time Billed (hr/min): 60 Billed Treatment Time 1, ADL 4 TIMOTHY BAKER OT Jun 05, 2020 10:28
[2020-06-05] MEDS ORDERED: TRAM-42 PO (10:40)
--- NOTE | 2020-06-05 11:48 | Occupational Ther Daily Note ---
OT Current Status-Daily Note Subjective Pt laying in bed, agreeable to OT tx. Mental Status/Objective Patient Orientation: Person, Place, Time, Situation ADL-Treatment Therapy Code Descriptions/Definitions Functional [place] Measure: 0=Not Assessed/NA 4=Minimal Assistance 1=Total Assistance 5=Supervision or Setup 2=Maximal Assistance 6=Modified [place] 3=Moderate Assistance 7=Complete IndependenceSCALE: Activities may be completed with or without assistive devices. 2-Ihxzswzlyr-knbtxgh completes the activity by him/herself with no assistance from a helper. 5-Set-up or Clean-up Assistance-helper sets up or cleans up; patient completes activity. [place] assists only prior to or following the activity. 4-Supervision or Touching Assistance-helper provides verbal cues and/or touching/steadying and/or contact guard assistance as patient completes activity. Assistance may be provided throughout the activity or intermittently. 3-Partial/Moderate Assistance-helper does LESS THAN HALF the effort. [place] lifts, holds or supports trunk or limbs, but provides less than half the effort. 2-Substantial/Maximal Assistance-helper does MORE THAN HALF the effort. [place] lifts or holds trunk or limbs and provides more than half the effort. 8-Rbxprcifk-ixinlj does ALL the effort. Patient does none of the effort to complete the activity. Or, the assistance of 2 or more helpers is required for the patient to complete the activity. If activity was not attempted, code reason: 7-Patient Refused. 9-Not Applicable-not attempted and the patient did not perform the activity before the current illness, exacerbation or injury. 10-Not Attempted due to Environmental Limitations-(lack of equipment, weather restraints, etc.). 88-Not Attempted due to Medical Conditions or Safety Concerns. Other Treatment Pt laying in bed, agreeable to OT tx. Pt states she has not had her lunch ordered, OT assisted pt with ordering lunch due to pt's decreased vision and [place]. In order to increase BUE fine motor strength/coordination, and to increase activity tolerance, pt removed beads from moderate resistance theraputty, able to remove x16 beads without cues. She then placed/removed 1" pegs into foam pegboard, completing x25 pegs. Post tx, pt laying in bed, call light in reach and all needs met. Education OT Patient Education: Correct positioning, Energy conservation, Exercise program, Modified ADL techniques, Progress toward Goal/Update tx plan, Purpose of tx/functional activities Teaching Recipient: Patient Teaching Methods: Discussion Response to Teaching: Verbalize Understanding OT Short Term Goals Short Term Goals Upper body dressin Lower body dressin OT Strip Polisher Goals Strip Polisher Goals Time Frame: Jun 11, 2020 Eating (QC): 6 (met) Oral Hygiene (QC): 6 (met) Toileting Hygiene (QC): 6 (met) Shower/Bathe Self (QC): 6 (not met, set up) Upper Body Dressing (QC): 3 (met) Lower Body Dressing (QC): 6 (not met, set up) On/Off Footwear (QC): 6 (not met, set up) Additional Goals: 1-Demonstrate ADL Tasks, 2-Verbalize Understanding, 3- ImproveStrength/Matt 1=Demonstrate adherence to instructed precautions during ADL tasks. 2=Patient will verbalize/demonstrate understanding of assistive devices/modifications for ADL. 3=Patient will improve strength/tolerance for activity to enable patient to perform ADL's. OT Education/Plan Problem List/Assessment Assessment: Decreased Activ Tolerance, Decreased UE Strength, Impaired I ADL's, Impaired Self-Care Skills Discharge Recommendations Plan/Recommendations: Continue POC Treatment Plan/Plan of Care Patient would benefit from OT for education, treatment and training to promote independence in ADL's, mobility, safety and/or upper extremity function for ADL's. Plan of Care: ADL Retraining, Caregiver Training, Concurrent Therapy, Functional Mobility, Group Exercise/Act as Ind, UE Funct Exercise/Act Treatment Duration: Jun 11, 2020 Frequency: At least 5 of 7 days/Wk (IRF) Estimated Hrs Per Day: 1.5 hours per day Agreement: Yes Rehab Potential: Fair Time/GCodes Start Time: 11:30 Stop Time: 12:00 Total Time Billed (hr/min): 30 Billed Treatment Time 1, FA 2 TIMOTHY BAKER OT Jun 05, 2020 11:48
[2020-06-05 16:23] VITALS: BP 142/65
[2020-06-05] MEDS: CALCIUM CARB + VIT D 600 MG (CALCARB + D) TAB PO SCH (18:16)
[2020-06-05 21:15] VITALS: BP 145/72
[2020-06-05] MEDS: LATANOPROST 0.005% (XALATAN) OPHTH SOLN 2.5 ML OU SCH (21:17)
[2020-06-05] MEDS: SIMvastatin 10 MG (ZOCOR) TAB PO SCH (21:17)
[2020-06-06 05:30] VITALS: BP 168/71
--- NOTE | 2020-06-06 06:12 | Discharge Summary ---
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 HTN OOC Advanced age Anemia Acute blood loss Severe symptomatic anemia requiring 1 unit of blood 05/29/20 Plan: Monitor closely IRF Pain control BP control 05/29/20: Give 1 unit of blood today Iron infusion Monitor closely 05/30/20: Monitor closely Monitor hgb No pain 05/31/20: Monitor closely BP ok 06/01/20: Monitor BP Monitor for pain 06/02/20: Monitor for pain Iron infusions 06/03/20: Monitor hgb Monitor falls 06/04/20: DC planning Monitor for falls 06/05/20: DC tomorrow Monitor BP (1) Debility (2) Adenocarcinoma, colon (3) Cancer, metastatic (4) Hypertension (5) Anemia (6) Advanced age (7) History of sepsis (8) History of UTI Discharge Summary Discharge Physical Examination Allergies: Coded Allergies: clarithromycin (Verified Allergy, Unknown, 08/18/18) Uncoded Allergies: PENICILLIN (Allergy, Unknown, 08/18/18) Vitals & I&Os Vital Signs Date Time Temp Pulse Resp B/P (MAP) Pulse Ox O2 Delivery O2 Flow Rate FiO2 06/06/20 11:27 36.8 84 18 158/72 97 Room Air General Appearance: Alert, Oriented X3, Cooperative Respiratory: Clear to Auscultation Cardiovascular: Regular Rate Neuro: Normal Gait, Normal Speech, Strength at 5/5 X4 Ext Psych/Mental Status: Mental Status NL Hospital Course Was the Problem List Reviewed?: Yes Long stay but no decompensation during IRF course. BP remained stable and patient met criteria for IV iron infusions due to severe anemia and required 1 unit of blood. Overall she was able to participate in all therapies and remained stable and was in improved condition at time of DC back to [place] and PT OT ordered via and will have close f/u with PCP. Labs (last 24 hrs) Laboratory Tests 05/29/20 05:07: White Blood Count 9.5, Red Blood Count 2.58L, Hemoglobin 7.0L, Hematocrit 23L, Mean Corpuscular Volume 90, Mean Corpuscular Hemoglobin 27, Mean Corpuscular Hemoglobin Concent 30L, Red Cell Distribution Width 15.6H, Platelet Count 312, Mean Platelet Volume 9.5, Immature Granulocyte % (Auto) 3, Neutrophils (%) (Auto) 65, Lymphocytes (%) (Auto) 20, Monocytes (%) (Auto) 9, Eosinophils (%) (Auto) 3, Basophils (%) (Auto) 0, Neutrophils # (Auto) 6.2, Lymphocytes # (Auto) 1.9, Monocytes # (Auto) 0.9, Eosinophils # (Auto) 0.2, Basophils # (Auto) 0.0, I mmature Granulocyte # (Auto) 0.3H, Sodium Level 145, Potassium Level 3.4L, Chloride Level 109H, Carbon Dioxide Level 25, Anion Gap 11, Blood Urea Nitrogen 10, Creatinine 0.97, Estimat Glomerular Filtration Rate 54, BUN/Creatinine Ratio 10, Glucose Level 124H, Calcium Level 8.1L, Corrected Calcium 9.1, Iron Level 18L, Total Bilirubin 0.3, Aspartate Amino Transf (AST/SGOT) 25, Alanine Aminotransferase (ALT/SGPT) 9, Alkaline Phosphatase 46, Total Protein 5.5L, Albumin 2.7L 05/30/20 05:40: White Blood Count 9.5, Red Blood Count 3.24L, Hemoglobin 8.9#L, Hematocrit 29L, Mean Corpuscular Volume 88, Mean Corpuscular Hemoglobin 27, Mean Corpuscular Hemoglobin Concent 31L, Red Cell Distribution Width 15.2H, Platelet Count 271, Mean Platelet Volume 9.6, Immature Granulocyte % (Auto) 4, Neutrophils (%) (Auto) 61, Lymphocytes (%) (Auto) 21, Monocytes (%) (Auto) 11, Eosinophils (%) (Auto) 3, Basophils (%) (Auto) 1, Neutrophils # (Auto) 5.8, Lymphocytes # (Auto) 2.0, Monocytes # (Auto) 1.1H, Eosinophils # (Auto) 0.3, Basophils # (Auto) 0.1, Immature Granulocyte # (Auto) 0.4H, Sodium Level 143, Potassium Level 3.4L, Chloride Level 105, Carbon Dioxide Level 26, Anion Gap 12, Blood Urea Nitrogen 8, Creatinine 0.98, Estimat Glomerular Filtration Rate 53, BUN/Creatinine Ratio 8, Glucose Level 110H, Calcium Level 8.1L, Corrected Calcium 9.1, Total Bilirubin 0.5, Aspartate Amino Transf (AST/SGOT) 26, Alanine Aminotransferase (ALT/SGPT) 9, Alkaline Phosphatase 47, Total Protein 5.6L, Albumin 2.8L 06/02/20 05:49: White Blood Count 13.4H, Red Blood Count 3.62L, Hemoglobin 10.0L, Hematocrit 33L , Mean Corpuscular Volume 90, Mean Corpuscular Hemoglobin 28, Mean Corpuscular Hemoglobin Concent 31L, Red Cell Distribution Width 15.6H, Platelet Count 304, Mean Platelet Volume 9.7, Immature Granulocyte % (Auto) 1, Neutrophils (%) (Auto) 67, Lymphocytes (%) (Auto) 19, Monocytes (%) (Auto) 10, Eosinophils (%) (Auto) 3, Basophils (%) (Auto) 0, Neutrophils # (Auto) 9.0H, Lymphocytes # (Auto) 2.6, Monocytes # (Auto) 1.3H, Eosinophils # (Auto) 0.3, Basophils # (Auto) 0.1, Immature Granulocyte # (Auto) 0.2H, Sodium Level 143, Potassium Level 3.6, Chloride Level 107, Carbon Dioxide Level 23, Anion Gap 13, Blood Urea Nitrogen 10, Creatinine 1.05, Estimat Glomerular Filtration Rate 49, BUN/Creatinine Ratio 10, Glucose Level 118H, Calcium Level 8.6, Corrected Calcium 9.2, Total Bilirubin 0.3, Aspartate Amino Transf (AST/SGOT) 29, Alanine Aminotransferase (ALT/SGPT) 8, Alkaline Phosphatase 52, Total Protein 6.3L, Albumin 3.2 Pending Labs Laboratory Tests 05/29/20 05:07: White Blood Count 9.5, Red Blood Count 2.58, Hemoglobin 7.0, Hematocrit 23, Mean Corpuscular Volume 90, Mean Corpuscular Hemoglobin 27, Mean Corpuscular Hemoglobin Concent 30, Red Cell Distribution Width 15.6, Platelet Count 312, Mean Platelet Volume 9.5, Immature Granulocyte % (Auto) 3, Neutrophils (%) (Auto) 65, Lymphocytes (%) (Auto) 20, Monocytes (%) (Auto) 9, Eosinophils (%) (Auto) 3, Basophils (%) (Auto) 0, Neutrophils # (Auto) 6.2, Lymphocytes # (Auto) 1.9, Monocytes # (Auto) 0.9, Eosinophils # (Auto) 0.2, Basophils # (Auto) 0.0, Immature Granulocyte # (Auto) 0.3, Sodium Level 145, Potassium Level 3.4, Chloride Level 109, Carbon Dioxide Level 25, Anion Gap 11, Blood Urea Nitrogen 10, Creatinine 0.97, Estimat Glomerular Filtration Rate 54, BUN/Creatinine Ratio 10, Glucose Level 124, Calcium Level 8.1, Corrected Calcium 9.1, Iron Level 18, Total Bilirubin 0.3, Aspartate Amino Transf (AST/SGOT) 25, Alanine Aminotransferase (ALT/SGPT) 9, Alkaline Phosphatase 46, Total Protein 5.5, Albumin 2.7 05/30/20 05:40: White Blood Count 9.5, Red Blood Count 3.24, Hemoglobin 8.9, Hematocrit 29, Mean Corpuscular Volume 88, Mean Corpuscular Hemoglobin 27, Mean Corpuscular Hemoglobin Concent 31, Red Cell Distribution Width 15.2, Platelet Count 271, Mean Platelet Volume 9.6, Immature Granulocyte % (Auto) 4, Neutrophils (%) (Auto) 61, Lymphocytes (%) (Auto) 21, Monocytes (%) (Auto) 11, Eosinophils (%) (Auto) 3, Basophils (%) (Auto) 1, Neutrophils # (Auto) 5.8, Lymphocytes # (Auto) 2.0, Monocytes # (Auto) 1.1, Eosinophils # (Auto) 0.3, Basophils # (Auto) 0.1, Immature Granulocyte # (Auto) 0.4, Sodium Level 143, Potassium Level 3.4, Chloride Level 105, Carbon Dioxide Level 26, Anion Gap 12, Blood Urea Nitrogen 8, Creatinine 0.98, Estimat Glomerular Filtration Rate 53, BUN/Creatinine Ratio 8, Glucose Level 110, Calcium Level 8.1, Corrected Calcium 9.1, Total Bilirubin 0.5, Aspartate Amino Transf (AST/SGOT) 26, Alanine Aminotransferase (ALT/SGPT) 9, Alkaline Phosphatase 47, Total Protein 5.6, Albumin 2.8 06/02/20 05:49: White Blood Count 13.4, Red Blood Count 3.62, Hemoglobin 10.0, Hematocrit 33, Mean Corpuscular Volume 90, Mean Corpuscular Hemoglobin 28, Mean Corpuscular Hemoglobin Concent 31, Red Cell Distribution Width 15.6, Platelet Count 304, Mean Platelet Volume 9.7, Immature Granulocyte % (Auto) 1, Neutrophils (%) (Auto) 67, Lymphocytes (%) (Auto) 19, Monocytes (%) (Auto) 10, Eosinophils (%) (Auto) 3, Basophils (%) (Auto) 0, Neutrophils # (Auto) 9.0, Lymphocytes # (Auto) 2.6, Monocytes # (Auto) 1.3, Eosinophils # (Auto) 0.3, Basophils # (Auto) 0.1, Immature Granulocyte # (Auto) 0.2, Sodium Level 143, Potassium Level 3.6, Chloride Level 107, Carbon Dioxide Level 23, Anion Gap 13, Blood Urea Nitrogen 10, Creatinine 1.05, Estimat Glomerular Filtration Rate 49, BUN/Creatinine Ratio 10, Glucose Level 118, Calcium Level 8.6, Corrected Calcium 9.2, Total Bilirubin 0.3, Aspartate Amino Transf (AST/SGOT) 29, Alanine Aminotransferase (ALT/SGPT) 8, Alkaline Phosphatase 52, Total Protein 6.3, Albumin 3.2 Discharge Home Medications: Active Scripts Active Ultram (Tramadol HCl) 50 Mg Tablet 50 Mg PO Q8H PRN Klor-Con 10 (Potassium Chloride) 10 Meq Tablet.er 10 Meq PO BID WITH MEALS Amlodipine Besylate 5 Mg Tablet 5 Mg PO DAILY Hydralazine HCl 25 Mg Tablet 25 Mg PO TID Reported Mayer 3 1,000 mg Softgel (Mayer-3 Fatty Acids/Fish Oil) 1 Each Capsule 1 Each PO 1800 ON TUE,TUE,FR Ocutabs Tablet (Beta-Carotene(A) W-C & E/Min) 1 Each Tablet 1 Each PO HS Ocutabs Tablet (Beta-Carotene(A) W-C & E/Min) 1 Each Tablet 2 Each PO DAILY Omeprazole 20 Mg Capsule.dr 20 Mg PO DAILY PRN Xalatan (Latanoprost) 2.5 Ml Drops 1 Drop OU HS Osteo Bi-Flex Caplet (Glucosamine HCl/Chondr Salmeron A Na) 1 Each Tablet 1 Ea PO DAILY Mayer-3 Fish Oil 1,000 mg Sftg (Mayer-3/Dha/Epa/Fish Oil) 1 Each Capsule 1 Ea PO DAILY Calcium 600 + Vit D3 Tablet (Calcium Carbonate/Vitamin D3) 1 Each Tablet 1 Ea PO 1800 Duloxetine HCl 60 Mg Capsule.dr 60 Mg PO DAILY Metoprolol Tartrate 25 Mg Tablet 25 Mg PO BID Tolterodine Tartrate ER (Tolterodine Tartrate) 4 Mg Cap.er.24h 4 Mg PO DAILY Simvastatin 10 Mg Tablet 10 Mg PO HS Acetaminophen 500 Mg Tablet 500 Mg PO TID Dok (Docusate Sodium) 100 Mg Tablet 100 Mg PO BID Ferrous Sulfate 325 Mg Tablet 325 Mg PO DAILY Pregabalin 75 Mg Capsule 75 Mg PO BID Instructions to patient/family Please see electronic discharge instructions given to patient. Diagnosis/Problems Diagnosis/Problems (1) Debility (2) Adenocarcinoma, colon (3) Cancer, metastatic (4) Hypertension (5) Anemia (6) Advanced age (7) History of sepsis (8) History of UTI CALVIN LAURA DO Jun 06, 2020 06:12
[2020-06-06] MEDS: MULTIVIT W/MINERALS TAB (THERAGRAN M) PO SCH (06:22)
--- NOTE | 2020-06-06 07:49 | Therapy Team Discharge Summary ---
Therapy Discharge Summary Discharge Recommendations Date of Discharge Physical Therapy Patient, upon initial evaluation, required SBA-CGA for mobility for safety. Patient has worked toward goals and has attained all functional goals as stated in LTG. Patient will dismiss to home ([place]) with spouse at maximum LOF of independent. Patient has established equipment per report. Goals attained. Occupational Therapy Decreased Activ Tolerance, Decreased UE Strength, Impaired I ADL's, Impaired Self-Care Skills PT Terminal Block Assembler Goals Long-Term Goals PT Long-Term Goals Time Frame: Jun 18, 2020 Roll Left to Right (QC): 6 (met 06/05/20) Sit to Lying (QC): 6 (met 06/05/20) Lying-Sitting on Side/Bed(QC): 6 (met 06/05/20) Sit to Stand (QC): 5 (met 06/05/20) Chair/Oao-wj-Rnofp Xfer(QC): 5 (met 06/05/20) Car Transfer (QC): 5 (met 06/05/20) Does the Patient Walk: Yes Walk 10 feet (QC): 5 (met 06/05/20) Walk 10ft-Uneven Surface(QC): 5 (met 06/05/20) Walk 50ft with 2 Turns (QC): 5 (met 06/05/20) Walk 150 ft (QC): 5 (met 06/05/20) Wheel 50 feet with 2 turns (QC: 9 1 Step (curb) (QC): 4 (met 06/05/20) 4 Steps (QC): 4 (met 06/05/20) 12 Steps (QC): 88 Picking up an Object (QC): 4 OT Terminal Block Assembler Goals Terminal Block Assembler Goals Time Frame: Jun 11, 2020 Eating (QC): 6 (met) Oral Hygiene (QC): 6 (met) Shower/Bathe Self (QC): 6 (not met, set up) Upper Body Dressing (QC): 3 (met) Lower Body Dressing (QC): 6 (not met, set up) On/Off Footwear (QC): 6 (not met, set up) Toileting Hygiene (QC): 6 (met) Toilet/Commode Transfer (QC): 5 Additional Goals: 1-Demonstrate ADL Tasks, 2-Verbalize Understanding, 3-Impr oveStrength/Matt 1=Demonstrate adherence to instructed precautions during ADL tasks. 2=Patient will verbalize/demonstrate understanding of assistive devices/modifications for ADL. 3=Patient will improve strength/tolerance for activity to enable patient to perform ADL's. KALI RENTERIA PT Jun 06, 2020 07:49
[2020-06-06 08:41] VITALS: BP 158/72
[2020-06-06] MEDS: OMEGA 3 (FISH OIL) 1000 MG CAP PO SCH (08:42)
[2020-06-06] MEDS: meTOprolol TARTRATE 25 MG (LOPRESSOR) TABLET PO SCH (08:42)
[2020-06-06] MEDS: KCL 10 MEQ TAB (MICRO K) PO SCH (08:42)
[2020-06-06] MEDS: ACETAMINOPHEN 500 MG TAB (TYLENOL) PO SCH (08:42)
[2020-06-06] MEDS: amLODIPine 5 MG (NORVASC) TAB PO SCH (08:42)
[2020-06-06] MEDS: PREGABALIN 75 MG (LYRICA) CAP PO SCH (08:42)
[2020-06-06] MEDS: IRON SUCROSE 200 MG/10 ML (VENOFER) VIAL IV SCH (08:42)
[2020-06-06] MEDS: PANTOPRAZOLE 20 MG TABLET (PROTONIX) PO SCH (08:42)
[2020-06-06] MEDS: FERROUS SULF 325 MG (IRON) TAB PO SCH (08:42)
[2020-06-06] MEDS: DULoxetine 30 MG (CYMBALTA) CAP PO SCH (08:42)
[2020-06-06] MEDS: TOLTERODINE LA 4 MG (DETROL) CAP PO SCH (08:42)
[2020-06-06] MEDS: hydrALAZINE (APRESOLINE) 25 MG TAB PO SCH (08:42)
[2020-06-06] MEDS: DOCUSATE SODIUM 100 MG (COLACE) CAP PO SCH (08:44)
[2020-06-06] MEDS: polyethylene glycoL POWDER 17 GM (MIRALAX) PACK PO SCH (08:45)
[2020-06-06] MEDS: SENNA W/DOCUSATE (SENOKOT S) TABLET PO SCH (08:45)
[2020-06-06 11:27] VITALS: BP 158/72
--- NOTE | 2020-06-09 15:19 | Therapy Team Discharge Summary ---
Therapy Discharge Summary Discharge Recommendations Date of Discharge Jun 06, 2020 at 11:05 Occupational Therapy Pt admitted to ARU for sepsis/R hemiclectomy. At OF, pt was independent with ADLs within [facility] apartment, using SPC for functional mobility. [facility] assists with managing food and laundry. Upon initial evaluation, pt required set up assistance with eating, SBA oral care, min A showering, mod A upper/lower body dressing, IND footwear (slip on shoes), and min A toileting. At discharge pt was independent with toileting, eating and oral care, and required set up assist with showering, upper body dressing, lower body dressing and footwear. Pt made good progress towards goals, attaining goals for eating, oral care, upper body dressing, and toileting. Pt discharged from facility, d/c from OT. Decreased Activ Tolerance, Decreased UE Strength, Impaired I ADL's, Impaired Self-Care Skills PT Custodial Goals Custodial Goals PT Custodial Goals Time Frame: Jun 18, 2020 Roll Left to Right (QC): 6 (met 06/05/20) Sit to Lying (QC): 6 (met 06/05/20) Lying-Sitting on Side/Bed(QC): 6 (met 06/05/20) Sit to Stand (QC): 5 (met 06/05/20) Chair/Hxg-re-Pedko Xfer(QC): 5 (met 06/05/20) Car Transfer (QC): 5 (met 06/05/20) Does the Patient Walk: Yes Walk 10 feet (QC): 5 (met 06/05/20) Walk 10ft-Uneven Surface(QC): 5 (met 06/05/20) Walk 50ft with 2 Turns (QC): 5 (met 06/05/20) Walk 150 ft (QC): 5 (met 06/05/20) Wheel 50 feet with 2 turns (QC: 9 1 Step (curb) (QC): 4 (met 06/05/20) 4 Steps (QC): 4 (met 06/05/20) 12 Steps (QC): 88 Picking up an Object (QC): 4 OT Custodial Goals Final Rail Cutter Goals Time Frame: Jun 11, 2020 Eating (QC): 6 (met) Oral Hygiene (QC): 6 (met) Shower/Bathe Self (QC): 6 (not met, set up) Upper Body Dressing (QC): 3 (met) Lower Body Dressing (QC): 6 (not met, set up) On/Off Footwear (QC): 6 (not met, set up) Toileting Hygiene (QC): 6 (met) Toilet/Commode Transfer (QC): 5 Additional Goals: 1-Demonstrate ADL Tasks, 2-Verbalize Understanding, 3-ImproveStrength/Matt 1=Demonstrate adherence to instructed precautions during ADL tasks. 2=Patient will verbalize/demonstrate understanding of assistive devices/modifications for ADL. 3=Patient will improve strength/tolerance for activity to enable patient to perform ADL's. TIMOTHY BAKER OT Jun 09, 2020 15:19
== END 2020-06-06 11:05 | disposition home health service (06) | DRG 92 ==
PROVIDERS: ADMIT Internal Medicine; ATTEND Internal Medicine
DX: G72.81 Critical illness myopathy (principal); C79.2 Secondary malignant neoplasm of skin; D62 Acute posthemorrhagic anemia; I10 Essential (primary) hypertension; Z85.038 Personal history of other malignant neoplasm of large intestine; Z88.1 Allergy status to other antibiotic agents; Z88.0 Allergy status to penicillin
CPT/HCPCS: 36410; 36415; 76937; 80053; 83540; 85025; 86850; 86900; 86901; 86920

== ENCOUNTER → 2020-07-08 | Outpatient (CLI) | payer MEDICARE ==
[~2020-07-08] MED LIST changes: +ACET-93 PO; -ACETAMINOPHEN 500 MG TAB (TYLENOL) PO PRN; -ALPRAZolam 0.25 MG (XANAX) TAB PO PRN; +AMLO-250 PO; +BETA1TAB13 PO; -BISACODYL 10 MG SUPP (DULCOLAX) PR PRN; +CALC1TAB95 PO; -CALCIUM CARBONATE 500 MG (TUMS) TAB.CHEW PO PRN; +CAPS60CR4 TOP; +CYAN-41 PO; +DOCU100T28 PO; -DOCUSATE SODIUM 100 MG (COLACE) CAP PO PRN; +DULO60CA59 PO; +FERR325T18 PO; -FLEET ENEMA ADULT 1 EA BTL PR PRN; +GARL10002 PO; +GLUC-144 PO; +HYDR-3923 PO; -LACTULOSE SYRUP 10GM/15ML (ENULOSE) 30ML UDC PO PRN; +LATA2.5D19 OU; -LOPERAMIDE 2 MG (IMODIUM) TABLET PO PRN; +MENT222L TP; +METO-333 PO; +OMEG10006 PO; +OMEG1CAP58 PO; +OMEP20CA18 PO; -ONDANSETRON 4 MG (ZOFRAN) ORAL DISSOLVE TAB PO PRN; +PANT20TA18 PO; +POTA10TA6 PO; +PREG75CA75 PO; +SIMV10TA26 PO; +TOLT4CAP13 PO; +TRAM-42 PO; +TRAM50TA3 PO; -diphenhydrAMINE 25 MG TAB (BENADRYL) PO PRN; -guaiFENesin/CODEINE (ROBITUSSIN AC) 10ML UDC PO PRN
--- NOTE | 2020-07-08 13:25 | Diagnostic Imaging Report ---
Indication: Colon carcinoma, initial staging. Patient status post colon resection 6 weeks ago. Serum blood glucose level time injection is 160 mg/dL. Patient was administered 14.1 mCi F-18 FDG intravenously in left antecubital location and PET imaging was performed from the top skull to mid thighs. Noncontrast CT was also performed for attenuation correction and anatomic correlation. No prior PET studies available for comparison. Comparison is made with recent CT of the abdomen and pelvis performed 05/21/2020. There is symmetric activity throughout the brain. Soft tissues of the neck are unremarkable. No mediastinal or hilar hypermetabolism is seen. No pulmonary parenchymal hypermetabolism is identified. There are postsurgical changes of right hemicolectomy. There is stranding and increased activity in the right. Midline abdomen at the level of the inferior edge of the liver. There is activity along the right anterior abdominal wall where there are multiple surgical clips present. Activity is seen measuring up to approximately SUV max of 6.6. While this could potentially be postsurgical, possibility of involvement of the anterior abdominal wall with neoplasm cannot be entirely excluded. Close follow-up is recommended. Remainder of the abdomen and pelvis are unremarkable although pelvis is compromised due to significant artifact from right hip prosthesis. IMPRESSION: Status post right hemicolectomy. There is moderate amount of activity along the right anterior abdominal wall. While this could be postsurgical SUV values do approach 6.6 and the possibility of involvement of the anterior abdominal wall neoplasm cannot be entirely excluded. Continued close follow-up is recommended. The remainder of the study is unremarkable. Dictated by: Dictated on workstation # [id number]
== END ==
LOC: RAD 09:00
PROVIDERS: ATTEND Nurse Practitioner Adult Health
DX: C18.9 Malignant neoplasm of colon, unspecified (principal); R97.0 Elevated carcinoembryonic antigen [CEA]; Z90.49 Acquired absence of other specified parts of digestive tract
CPT/HCPCS: 78815; A9552

== ENCOUNTER → 2020-09-16 | Outpatient (CLI) | payer MEDICARE ==
--- NOTE | 2020-09-16 14:02 | Diagnostic Imaging Report ---
INDICATION: Carcinoma of the ascending colon, subsequent treatment strategy and treatment response. TECHNIQUE: Serum blood glucose level at the time of injection is 120 mg/dL. Patient was administered 14.5 mCi F-18 FDG intravenously and PET imaging was performed from the top of the skull to mid thighs. Noncontrast CT was also performed for attenuation correction and anatomic correlation. COMPARISON: Correlation is made with prior PET/CT from 07/08/2020. FINDINGS: There is symmetric activity throughout the brain. Soft tissues of the neck are unremarkable. No hypermetabolic foci within the mediastinum or mateo are identified. The pulmonary parenchyma is unremarkable. Postsurgical changes of right hemicolectomy are again noted. There continues to be hypermetabolic activity in the right paramidline anterior abdominal wall. An area of soft tissue thickening in the anterior abdominal wall at the level of the right hemicolectomy anastomosis measures 2.5 x 1.6 cm and demonstrates activity with an SUV max of 6.8. A second area of thickening more cephalad demonstrates an SUV max of 4.9. No intra-abdominal hypermetabolic foci are identified. IMPRESSION: There continues to be soft tissue thickening and hypermetabolic activity involving the right paramidline anterior abdominal wall, suspicious for tumor involvement. The remainder of the study is unremarkable. Dictated by: Dictated on workstation # [id number]
== END ==
LOC: RAD 09:45
PROVIDERS: ATTEND Nurse Practitioner Adult Health
DX: C18.2 Malignant neoplasm of ascending colon (principal)
CPT/HCPCS: 78815; A9552

== ENCOUNTER 2020-09-22 14:17 | Outpatient (RCR) | payer MEDICARE ==
[2020-06-25 13:10] LABS: BASOPHILS % (AUTO) 0 % (0-10); EOSINOPHILS # (AUTO) 0.3 10^3/uL (0.0-0.3); EOSINOPHILS % (AUTO) 3 % (0-10); HEMATOCRIT 34 % (35-52); HEMOGLOBIN 10.4 g/dL (11.5-16.0); LYMPHOCYTES # (AUTO) 2.7 10^3/uL (1.0-4.0); LYMPHOCYTES % (AUTO) 27 % (12-44); MEAN CORPUSCULAR HEMOGLOBIN 29 pg (25-34); MEAN CORPUSCULAR HGB CONC 30 g/dL (32-36); MEAN CORPUSCULAR VOLUME 96 fL (80-99); MEAN PLATELET VOLUME 9.4 fL (9.0-12.2); MONOCYTES % (AUTO) 10 % (0-12); NEUTROPHILS % (AUTO) 59 % (42-75); PLATELET COUNT 191 10^3/uL (130-400); WHITE BLOOD COUNT 10.1 10^3/uL (4.3-11.0)
[2020-06-25 13:17] LABS: ALBUMIN 3.6 GM/DL (3.2-4.5); POTASSIUM 3.9 MMOL/L (3.6-5.0)
[2020-06-25 13:18] LABS: CALCIUM 9.7 MG/DL (8.5-10.1)
[2020-06-25 13:20] LABS: TOTAL PROTEIN 7.3 GM/DL (6.4-8.2)
[2020-06-25 13:21] LABS: BILIRUBIN,TOTAL 0.2 MG/DL (0.1-1.0)
[2020-06-25 13:23] LABS: CREATININE SERUM 1.24 MG/DL (0.60-1.30)
[2020-07-22 14:54] LABS: BASOPHILS % (AUTO) 0 % (0-10); EOSINOPHILS # (AUTO) 0.3 10^3/uL (0.0-0.3); EOSINOPHILS % (AUTO) 3 % (0-10); HEMATOCRIT 35 % (35-52); HEMOGLOBIN 11.2 g/dL (11.5-16.0); LYMPHOCYTES # (AUTO) 3.5 10^3/uL (1.0-4.0); LYMPHOCYTES % (AUTO) 39 % (12-44); MEAN CORPUSCULAR HEMOGLOBIN 32 pg (25-34); MEAN CORPUSCULAR HGB CONC 32 g/dL (32-36); MEAN CORPUSCULAR VOLUME 98 fL (80-99); MEAN PLATELET VOLUME 9.7 fL (9.0-12.2); MONOCYTES % (AUTO) 11 % (0-12); NEUTROPHILS # (AUTO) 4.1 10^3/uL (1.8-7.8); NEUTROPHILS % (AUTO) 47 % (42-75); PLATELET COUNT 156 10^3/uL (130-400); WHITE BLOOD COUNT 8.9 10^3/uL (4.3-11.0)
[2020-07-22 15:22] LABS: ALBUMIN 3.8 GM/DL (3.2-4.5); BILIRUBIN,TOTAL 0.2 MG/DL (0.1-1.0); CALCIUM 8.8 MG/DL (8.5-10.1); CREATININE SERUM 1.26 MG/DL (0.60-1.30); POTASSIUM 3.8 MMOL/L (3.6-5.0); TOTAL PROTEIN 7.2 GM/DL (6.4-8.2)
[2020-08-12 13:07] LABS: BASOPHILS % (AUTO) 0 % (0-10); EOSINOPHILS # (AUTO) 0.1 10^3/uL (0.0-0.3); EOSINOPHILS % (AUTO) 2 % (0-10); HEMATOCRIT 35 % (35-52); HEMOGLOBIN 11.3 g/dL (11.5-16.0); LYMPHOCYTES # (AUTO) 2.8 10^3/uL (1.0-4.0); LYMPHOCYTES % (AUTO) 33 % (12-44); MEAN CORPUSCULAR HEMOGLOBIN 33 pg (25-34); MEAN CORPUSCULAR HGB CONC 33 g/dL (32-36); MEAN CORPUSCULAR VOLUME 100 fL (80-99); MEAN PLATELET VOLUME 9.4 fL (9.0-12.2); MONOCYTES # (AUTO) 0.9 10^3/uL (0.0-1.0); MONOCYTES % (AUTO) 11 % (0-12); NEUTROPHILS # (AUTO) 4.5 10^3/uL (1.8-7.8); NEUTROPHILS % (AUTO) 54 % (42-75); PLATELET COUNT 139 10^3/uL (130-400); WHITE BLOOD COUNT 8.3 10^3/uL (4.3-11.0)
[2020-08-12 13:27] LABS: ALBUMIN 3.7 GM/DL (3.2-4.5); BILIRUBIN,TOTAL 0.4 MG/DL (0.1-1.0); CALCIUM 9.2 MG/DL (8.5-10.1); CREATININE SERUM 1.34 MG/DL (0.60-1.30); POTASSIUM 4.2 MMOL/L (3.6-5.0); TOTAL PROTEIN 6.7 GM/DL (6.4-8.2)
[2020-09-01 13:33] LABS: BASOPHILS % (AUTO) 0 % (0-10); EOSINOPHILS # (AUTO) 0.2 10^3/uL (0.0-0.3); EOSINOPHILS % (AUTO) 2 % (0-10); HEMATOCRIT 33 % (35-52); HEMOGLOBIN 11.1 g/dL (11.5-16.0); LYMPHOCYTES # (AUTO) 3.2 10^3/uL (1.0-4.0); LYMPHOCYTES % (AUTO) 37 % (12-44); MEAN CORPUSCULAR HEMOGLOBIN 35 pg (25-34); MEAN CORPUSCULAR HGB CONC 33 g/dL (32-36); MEAN CORPUSCULAR VOLUME 105 fL (80-99); MEAN PLATELET VOLUME 9.2 fL (9.0-12.2); MONOCYTES % (AUTO) 11 % (0-12); NEUTROPHILS # (AUTO) 4.2 10^3/uL (1.8-7.8); NEUTROPHILS % (AUTO) 49 % (42-75); PLATELET COUNT 141 10^3/uL (130-400); WHITE BLOOD COUNT 8.6 10^3/uL (4.3-11.0)
[2020-09-01 13:55] LABS: ALBUMIN 3.9 GM/DL (3.2-4.5); BILIRUBIN,TOTAL 0.5 MG/DL (0.1-1.0); CREATININE SERUM 1.08 MG/DL (0.60-1.30); POTASSIUM 3.8 MMOL/L (3.6-5.0)
[2020-09-22 14:37] LABS: BASOPHILS % (AUTO) 0 % (0-10); EOSINOPHILS # (AUTO) 0.2 10^3/uL (0.0-0.3); EOSINOPHILS % (AUTO) 2 % (0-10); HEMATOCRIT 35 % (35-52); HEMOGLOBIN 11.6 g/dL (11.5-16.0); LYMPHOCYTES % (AUTO) 37 % (12-44); MEAN CORPUSCULAR HEMOGLOBIN 37 pg (25-34); MEAN CORPUSCULAR HGB CONC 33 g/dL (32-36); MEAN CORPUSCULAR VOLUME 111 fL (80-99); MEAN PLATELET VOLUME 9.8 fL (9.0-12.2); MONOCYTES # (AUTO) 0.9 10^3/uL (0.0-1.0); MONOCYTES % (AUTO) 11 % (0-12); NEUTROPHILS # (AUTO) 4.1 10^3/uL (1.8-7.8); NEUTROPHILS % (AUTO) 50 % (42-75); PLATELET COUNT 133 10^3/uL (130-400); WHITE BLOOD COUNT 8.2 10^3/uL (4.3-11.0)
[2020-09-22 14:50] LABS: BILIRUBIN,TOTAL 0.4 MG/DL (0.1-1.0); CALCIUM 9.2 MG/DL (8.5-10.1); CREATININE SERUM 1.21 MG/DL (0.60-1.30); POTASSIUM 4.4 MMOL/L (3.6-5.0); TOTAL PROTEIN 7.2 GM/DL (6.4-8.2)
== END 2020-09-23 | disposition home or self-care (01) ==
LOC: ONC 14:17
PROVIDERS: ATTEND Internal Medicine Hematology & Oncology
DX: C18.9 Malignant neoplasm of colon, unspecified (principal); D64.9 Anemia, unspecified; K21.9 Gastro-esophageal reflux disease without esophagitis; I10 Essential (primary) hypertension; E11.9 Type 2 diabetes mellitus without complications; E78.5 Hyperlipidemia, unspecified; Z98.890 Other specified postprocedural states
CPT/HCPCS: 80053; 82378; 82728; 85025; G0463; 86300; 99213; 99214

== ENCOUNTER → 2020-10-28 | Outpatient (CLI) | payer MEDICARE ==
[~2020-10-28] MED LIST changes: +CATHETER FLUSH 10 ML SYR IV PRN; +HOLD METFORMIN - RECEIVED CONTRAST 20 ML VIAL IV SCH; +IOHEXOL 350 MG/ML 100 ML (OMNIPAQUE 350) VIAL IV ONE; +NS 100 ML (IVPB) BAG IV ONE; -TOLT4CAP13 PO; +TOLT4CAP26 PO
--- NOTE | 2020-10-28 11:23 | Diagnostic Imaging Report ---
PROCEDURE: CT chest with contrast, CT abdomen with and without contrast. TECHNIQUE: Precontrast acquisitions were acquired through the abdomen. Multiple contiguous axial images were obtained through the chest and abdomen after administration of intravenous contrast. Auto Exposure Controls were utilized during the CT exam to meet ALARA standards for radiation dose reduction. INDICATION: Right-sided abdominal mass. History of colon cancer. COMPARISON: 05/21/2020. FINDINGS: CT CHEST: The heart size is within normal limits. No pericardial effusion is present. The thoracic aorta is unremarkable without evidence of aneurysm or dissection. No evidence of pulmonary emboli to the segmental pulmonary arteries. There is no mediastinal, hilar, or axillary lymphadenopathy. A subpleural nodule is seen in the right upper lobe measuring 0.8 cm. There are no focal areas of consolidation. No pneumothoraces are present. No central endobronchial obstructing lesions are identified. There are no pleural effusions. No acute osseous abnormalities are seen in the chest. CT ABDOMEN: The abdominal aorta is unremarkable without evidence of dissection or aneurysm. No periaortic inflammatory changes. Scattered hepatic cysts are noted. No enhancing hepatic lesions are seen. The portal vein is patent. The gallbladder is surgically absent. The spleen, pancreas, adrenal glands, and kidneys have a normal appearance. There is no pathologically enlarged mesenteric or retroperitoneal adenopathy. There is a recurrent ventral hernia right of midline in an area of prior hernia repair. This contains a loop of small bowel with surrounding inflammatory changes present. No evidence of associated small bowel obstruction. Prior right cholectomy changes are noted. A small hiatal hernia is present. There is no free fluid or free air. The osseous structures are age-appropriate. IMPRESSION: 1. Recurrent ventral hernia right of midline in an area of prior hernia repair. A loop of small bowel is seen within this hernia sac with surrounding inflammatory changes present. No associated bowel obstruction is seen. Recommend surgical consultation. 2. Subpleural nodule in the right upper lobe measuring 0.8 cm. Given the patient history of colon cancer, a short interval followup with chest CT is recommended in 3 months. 3. Small hiatal hernia. Dictated by: Dictated on workstation # [id number]
== END ==
LOC: RAD 10:15
PROVIDERS: ATTEND Internal Medicine Hematology & Oncology
DX: K43.2 Incisional hernia without obstruction or gangrene (principal); R91.1 Solitary pulmonary nodule; Z85.038 Personal history of other malignant neoplasm of large intestine
CPT/HCPCS: 71260; 74170